=== PATIENT | female | born 1940 | race Caucasian/White ===

== ENCOUNTER → 2016-02-27 | Outpatient (CLI) | payer MEDICARE, BC ==
--- NOTE | 2016-03-02 07:12 | MM ---
Reason for exam: screening (asymptomatic). Last mammogram was performed 1 year ago. History: Patient is postmenopausal. Family history of breast cancer in sister at age 59 and breast cancer in sister at age 73. Benign left mammotome panel of the left breast, October 30, 2004. Took estrogen beginning at age 37. Physical Findings: A clinical breast exam by your physician is recommended on an annual basis and results should be correlated with mammographic findings. MG 3D Screening Mammo W/Cad Bilateral CC and MLO view(s) were taken. Prior study comparison: February 25, 2015, bilateral MG 3d diag mammo w/cad HARISH. August 23, 2014, right breast MG diagnostic mammo RT w CAD. February 22, 2014, right breast MG work up mamm w CAD RT. February 10, 2013, bilateral digital screening mammo w/CAD. The breast tissue is heterogeneously dense. This may lower the sensitivity of mammography. Previous mammotome biopsy in the left breast. No significant changes when compared with prior studies. ASSESSMENT: Negative, BI-RAD 1 RECOMMENDATION: Routine screening mammogram of both breasts in 1 year.
== END | disposition home or self-care (01) ==
LOC: RADMAMWWP 13:33
PROVIDERS: ATTEND Family Medicine
DX: Z12.31 Encounter for screening mammogram for malignant neoplasm of breast (principal)
CPT/HCPCS: 77063; G0202

== ENCOUNTER → 2016-04-06 | Outpatient (CLI) | payer MEDICARE, BC ==
[~2016-04-06] MED LIST: DENOSUMAB 60 MG/ML 1 ML SYRINGE SQ ONE
[2016-04-06 10:49] VITALS: BP 146/70; PULSE 65; RESP 16; TEMP 98.2
== END | disposition home or self-care (01) ==
LOC: PROCWHC3 10:20
PROVIDERS: ATTEND Family Medicine
DX: M81.0 Age-related osteoporosis without current pathological fracture (principal); N18.3 Chronic kidney disease, stage 3 (moderate)
CPT/HCPCS: 96372; J0897

== ENCOUNTER → 2016-04-25 | Outpatient (CLI) | payer MEDICARE, BC ==
[2016-04-25 09:43] LABS: Basophils # (A) 0.1 k/uL (0-0.2); Basophils % (A) 1 %; CH 29.5; CHCM 32.8; Eosinophils # (A) 0.1 k/uL (0-0.7); Eosinophils % (A) 3 %; HCT 38.5 % (34.0-46.0); HDW 2.84; HGB 12.6 gm/dL (11.4-16.0); Luc % (Auto) 4; Lymphocytes # (A) 1.5 k/uL (1.0-4.8); Lymphocytes % (A) 27 %; MCH 29.5 pg (25.0-35.0); MCHC 32.7 g/dL (31.0-37.0); MCV 90.3 fL (80.0-100.0); Mean Platelet Volume 7.4; Monocytes # (A) 0.3 k/uL (0-1.0); Monocytes % (A) 6 %; Neutrophils # (A) 3.3 k/uL (1.3-7.7); Neutrophils % (A) 60 %; RBC 4.26 m/uL (3.80-5.40); RDW 13.1 % (11.5-15.5); WBC 5.5 k/uL (3.8-10.6)
[2016-04-25 09:45] LABS: Appearance,Urine Clear (Clear); Bacteria,Urine Rare /hpf; Bilirubin,Urine Negative (Negative); Glucose,Urine (UA) Negative (Negative); Ketones,Urine Negative (Negative); Leukocyte Esterase,Urine Small (Negative); Nitrite,Urine Negative (Negative); Particle Count 1410; Protein,Urine Negative (Negative); RBC,Urine <1 /hpf (0-5); Specific Gravity,Urine 1.009 (1.001-1.035); Squamous Epithelial Cell,Urine <1 /hpf (0-4); UA Billing (MACRO vs. MICRO) MICRO; Urobilinogen,Urine <2.0 mg/dL (<2.0); WBC,Urine 8 /hpf (0-5)
[2016-04-25 10:24] LABS: Anion Gap 12 mmol/L; Blood Urea Nitrogen 14 mg/dL (7-17); Calcium 9.3 mg/dL (8.4-10.2); Carbon Dioxide 28 mmol/L (22-30); Chloride 101 mmol/L (98-107); Glucose 134 mg/dL (74-99); Iron 73 ug/dL (37-170); Magnesium 1.8 mg/dL (1.6-2.3); Non-African American GFR(MDRD) >60 (>60 ml/min/1.73 sqM); Phosphorous 4.3 mg/dL (2.5-4.5); Sodium 141 mmol/L (137-145); Uric Acid 6.3 mg/dL (3.7-7.4)
[2016-04-25 10:33] LABS: % Iron Saturation 22.5 % (20-50); Total Iron Binding Capacity 325 ug/dL (265-497)
== END ==
LOC: LABWHC1 09:18
PROVIDERS: ATTEND Nurse Practitioner Family
DX: N18.3 Chronic kidney disease, stage 3 (moderate) (principal); E87.5 Hyperkalemia; D64.9 Anemia, unspecified; E83.39 Other disorders of phosphorus metabolism; M10.9 Gout, unspecified; N39.0 Urinary tract infection, site not specified; E55.9 Vitamin D deficiency, unspecified
CPT/HCPCS: 36415; 80048; 81001; 82306; 82728; 83540; 83550; 83735; 83970; 84100; 84550; 85025

== ENCOUNTER → 2017-04-02 | Outpatient (CLI) | payer MEDICARE, BC ==
--- NOTE | 2017-04-06 09:59 | MM ---
Reason for exam: screening (asymptomatic). Last mammogram was performed 1 year and 1 month ago. History: Patient is postmenopausal. Family history of breast cancer in sister at age 59 and breast cancer in sister at age 73. Benign left mammotome panel of the left breast, October 30, 2004. Took estrogen beginning at age 37. Physical Findings: A clinical breast exam by your physician is recommended on an annual basis and results should be correlated with mammographic findings. MG 3D Screening Mammo W/Cad Bilateral CC and MLO view(s) were taken. Prior study comparison: February 27, 2016, bilateral MG 3d screening mammo w/cad. February 25, 2015, bilateral MG 3d diag mammo w/cad HARISH. February 16, 2014, bilateral MG screening mammo w CAD. The breast tissue is heterogeneously dense. This may lower the sensitivity of mammography. Previous mammotome biopsy in the left breast. No significant changes when compared with prior studies. ASSESSMENT: Negative, BI-RAD 1 RECOMMENDATION: Routine screening mammogram of both breasts in 1 year.
== END | disposition home or self-care (01) ==
LOC: RADMAMWWP 11:05
PROVIDERS: ATTEND Family Medicine
DX: Z12.31 Encounter for screening mammogram for malignant neoplasm of breast (principal)
CPT/HCPCS: 77063; 77067

== ENCOUNTER → 2018-04-20 | Outpatient (CLI) | payer MEDICARE, BC ==
--- NOTE | 2018-04-22 09:34 | MM ---
Reason for exam: screening (asymptomatic). Last mammogram was performed 1 year and 1 month ago. History: Patient is postmenopausal. Family history of breast cancer in sister at age 59 and breast cancer in sister at age 73. Benign left mammotome panel of the left breast, October 30, 2004. Took estrogen beginning at age 37. Physical Findings: A clinical breast exam by your physician is recommended on an annual basis and results should be correlated with mammographic findings. MG 3D Screening Mammo W/Cad Bilateral CC and MLO view(s) were taken. Prior study comparison: April 02, 2017, bilateral MG 3d screening mammo w/cad. February 27, 2016, bilateral MG 3d screening mammo w/cad. The breast tissue is heterogeneously dense. This may lower the sensitivity of mammography. Benign appearing bilateral calcifications. No suspicious abnormality. No significant changes when compared with prior studies. ASSESSMENT: Benign, BI-RAD 2 RECOMMENDATION: Routine screening mammogram of both breasts in 1 year.
== END | disposition home or self-care (01) ==
LOC: RADMAMWWP 14:23
PROVIDERS: ATTEND Family Medicine
DX: Z12.31 Encounter for screening mammogram for malignant neoplasm of breast (principal)
CPT/HCPCS: 77063; 77067

== ENCOUNTER → 2018-06-30 | Outpatient (CLI) | payer MEDICARE, BC | END | disposition home or self-care (01) | LOC: LABPAT 11:13 | PROVIDERS: ATTEND Orthopaedic Surgery | DX: Z01.812 Encounter for preprocedural laboratory examination (principal) | CPT/HCPCS: 87070 ==

== ENCOUNTER → 2018-08-09 | Outpatient (CLI) | payer MEDICARE, BC ==
[2018-08-09 09:39] LABS: HCT 39.3 % (34.0-46.0); HGB 12.6 gm/dL (11.4-16.0); MCH 28.5 pg (25.0-35.0); MCHC 32.1 g/dL (31.0-37.0); MCV 88.7 fL (80.0-100.0); Mean Platelet Volume 6.8; Platelet Count 256 k/uL (150-450); RBC 4.42 m/uL (3.80-5.40); RDW 13.6 % (11.5-15.5); WBC 6.9 k/uL (3.8-10.6)
[2018-08-09 09:45] LABS: INR 0.9 (<1.2); Partial Thromboplastin Time 24.8 sec (22.0-30.0); Prothrombin Time 10.1 sec (9.0-12.0)
[2018-08-09 09:46] LABS: Albumin 4.2 g/dL (3.5-5.0); Calcium 9.7 mg/dL (8.4-10.2); Potassium 5.6 mmol/L (3.5-5.1); Total Bilirubin 0.6 mg/dL (0.2-1.3); Total Protein 6.9 g/dL (6.3-8.2)
[2018-08-09 14:26] LABS: Appearance,Urine Clear (Clear); Bilirubin,Urine Negative (Negative); Blood,Urine Negative (Negative); Color,Urine Light Yellow; Glucose,Urine (UA) Negative (Negative); Ketones,Urine Negative (Negative); Leukocyte Esterase,Urine Negative (Negative); Nitrite,Urine Negative (Negative); PH, Urine 6.5 (5.0-8.0); Protein,Urine Negative (Negative); Specific Gravity,Urine 1.009 (1.001-1.035); Urobilinogen,Urine <2.0 mg/dL (<2.0)
== END | disposition home or self-care (01) ==
LOC: LABPAT 08:40
PROVIDERS: ATTEND Orthopaedic Surgery
DX: Z01.818 Encounter for other preprocedural examination (principal); Z79.01 Long term (current) use of anticoagulants; Z01.812 Encounter for preprocedural laboratory examination
CPT/HCPCS: 36415; 80053; 81003; 85027; 85610; 85730; 93005

== ENCOUNTER 2018-08-22 07:24 | Inpatient (IN) | payer MEDICARE, BC ==
[2018-08-11 12:35] VITALS: BMI 32.4
[~2018-08-22 07:24] MED LIST changes: +ACETAMINOPHEN TAB 500 MG TAB PO ONE; -DENOSUMAB 60 MG/ML 1 ML SYRINGE SQ ONE; +MELOXICAM 7.5 MG TAB PO ONE; +ROPIVACAINE 246.25 MG, EPINEPHrine 0.5 MG, KETOROLAC 30 MG, cloNIDine HCL/PF 80 MCG, WA... MISCELLANE ONE; +TRANEXAMIC ACID 1,000 MG in SODIUM CHLORIDE 0.9% 100 ML IVPB ONE; +ceFAZolin IN SWFI 2 GM/20 ML SYRINGE IVP ONE
[2018-08-22] MEDS ORDERED: LIDOCAINE 1% 20 ML VIAL (10MG/ML) FOR IV START INTRADERMA PRN (07:33)
[2018-08-22] MEDS ORDERED: DEXAMETHASONE SOD PHOSPHATE 10 MG/ML 1 ML VIAL IV ONE (07:33)
[2018-08-22] MEDS ORDERED: ONDANSETRON 4 MG/2 ML VIAL IVP ONE (07:33)
[2018-08-22 07:52] LABS: Glucose,Whole Blood 174 mg/dL (75-99)
[2018-08-22] MEDS: LACTATED RINGERS 1,000 ML IV SCH (07:59)
[2018-08-22] MEDS ORDERED: HYDROmorphone 0.5 MG/0.5 ML SYRINGE IVP PRN ×3 (08:52)
[2018-08-22] MEDS ORDERED: HYDROcodone/APAP 5-325MG 1 EACH TAB PO PRN ×2 (08:52)
[2018-08-22] MEDS ORDERED: hydrOXYzine PAMOATE 25 MG CAP PO PRN (08:52)
[2018-08-22] MEDS ORDERED: DIAZEPAM 5 MG TAB PO PRN (08:52)
[2018-08-22] MEDS ORDERED: ONDANSETRON 4 MG/2 ML VIAL IVP PRN (08:52)
[2018-08-22] MEDS ORDERED: NALOXONE 0.4 MG/ML 1 ML VIAL IV PRN (08:52)
[2018-08-22] MEDS ORDERED: MAGNESIUM HYDROXIDE 2,400 MG/10 ML CUP PO PRN (08:52)
[2018-08-22] MEDS ORDERED: PHENYLEPHRINE-0.9% NACL SYG 1 MG/10 ML SYRINGE ONE (09:27)
[2018-08-22] MEDS ORDERED: PROPOFOL 10 MG/ML 20 ML VIAL IV ONE (09:27)
[2018-08-22] MEDS ORDERED: HEPARIN SODIUM,PORCINE 10,000 UNIT/ML 1 ML VIAL ONE (09:27)
[2018-08-22] MEDS ORDERED: fentaNYL (PF) 50 MCG/ML 2 ML AMP ONE (09:27)
[2018-08-22] MEDS ORDERED: SODIUM CHLORIDE 0.9% 100 ML BAG ONE (09:27)
[2018-08-22] MEDS ORDERED: TRANEXAMIC ACID 1,000 MG/10 ML VIAL ONE (09:27)
[2018-08-22] MEDS ORDERED: LACTATED RINGERS 1,000 ML BAG IV ONE (09:27)
[2018-08-22] MEDS ORDERED: MIDAZOLAM 2 MG/2 ML VIAL ONE (09:27)
[2018-08-22] MEDS ORDERED: ceFAZolin 3,000 MG in SODIUM CHLORIDE 0.9% IRRIGATIO 3,000 ML IRRIGATION ONE (10:04)
[2018-08-22] MEDS ORDERED: LACTATED RINGERS 1,000 ML IV ONE (10:21)
--- NOTE | 2018-08-22 10:55 | P.OP ---
Date of Procedure: 08/22/18 Preoperative Diagnosis: Severe osteoarthritis right hip Postoperative Diagnosis: Severe osteoarthritis right hip Procedure(s) Performed: Right total hip arthroplasty with a direct anterior approach Implants: Rodriguez and nephew Polarstem size 2 standard Rodriguez [employer] Nephew R3, 3 hole acetabular shell, 52 mm [employer] Nephew reflection 6.5 mm cancellus screw, 20 mm 2 Rodriguez [employer]hew R3, XLPE 20 acetabular liner Rodriguez [employer] Nephew Oxinium femoral head 36 m, +0 All components were press-fit. The articulation is Oxinium on polyethylene. Anesthesia: spinal Surgeon: Angel Quigley Network Control Operator #1: Ketty Méndez Estimated Blood Loss (ml): 250 (105 mL returned with Cell Saver) Pathology: other (Femoral head) Condition: stable Disposition: PACU Indications for Procedure: After failure of conservative treatment we discussed the surgical and nonsurgical treatment options at length. Patient wishes to proceed with a total hip arthroplasty with a direct anterior approach. Complications specific to this procedure were discussed at length, including but not limited to infection, leg length discrepancy, dislocation, and nerve injury. Patient is aware of all these complications and informed consent was obtained Operative Findings: The operative findings are consistent with severe osteoarthritis of the right hip Description of Procedure: Patient was seen and evaluated in the preoperative area, consent was reviewed, and the surgical site was marked with a skin marker. Patient was then brought to the operating room and given prophylactic antibiotics intravenously. 1 g of Tranexamic acid was also given. A spinal anesthetic was administered by the anesthesia department. The patient was then placed on the Bowbells table with the bony prominences well-padded. The hip area was then prepped and draped in usual sterile fashion. A universal timeout was then performed, which confirmed the patient's name, surgical site, ALLERGIES, and procedure being performed. Next the incision site was located at 1 cm distal and 1 cm lateral to the anterior superior iliac spine. The skin and subcutaneous tissues were sharply incised. Incision was carefully dissected down to the fascia overlying the tensor fascia nadiya muscle. This fascia was then incised in line with the incision. Next, using blunt finger dissection, the tensor fascia nadiya muscle was dissected off its investing fascia. The muscle was then carefully retracted laterally with a cobra retractor over the lateral neck of the femur. Next, the circumflex vessels were identified and cauterized using the AquaMantis device. The anterior hip capsule was then exposed. The capsule was then opened and an inverted T fashion. Cobra retractors were then placed intracapsularly. The proximal femur was then visualized. The femoral neck was then osteotomized appropriate level above the lesser trochanter. Small amount of traction was placed with the Bowbells table. A small wedge of bone was then removed from the remaining femoral head. Next, using a corkscrew femoral head was easily removed from the acetabulum. On gross visual inspection, the femoral head had complete loss of articular cartilage in m ultiple periarticular osteophytes. Attention was then turned to the acetabulum. the acetabulum was exposed and any remaining labrum was excised. Sequential reaming of the acetabulum was performed using fluoroscopic guidance. When the appropriate size was reached, a trial was then placed. The position and fit of the trial was checked with fluoroscopy. The trial was then removed. Then, using fluoroscopic guidance, the final implant was impacted at 20 of anteversion and 40 of abduction, and fully seated in the acetabulum. 2 screws were then placed in the acetabulum. Again fluoroscopy was used to check position of the screws. Next, the liner was then impacted, with a 20 elevated liner located in the anterior superior quadrant. Component locking was confirmed. Attention was then directed to the femur. With the aid of the Bowbells table, the femur was externally rotated to approximately 130, extended, and abducted under the opposite leg. A side hook was then placed under the proximal femur, and the side hook elevator was used to elevate the proximal femur. Retractors were then placed. A capsular release was performed, as well as a release of the conjoined tendon, which afforded excellent visualization of the proximal femur. Next, a box osteotome was used to lateralize the proximal femur. A hat block bench hand was then used to locate the femoral canal. Sequential broaching was then performed with appropriate size which afforded excellent fixation in the proximal femur. A trial was then placed with appropriate head and neck, and the hip was gently reduced with the aid of the Bowbells table. Fluoroscopy was then used to check position of the components, as well as to ensure equal leg lengths. The hip was then gently dislocated and the trials were then removed. Final implants were then impacted and the hip was again reduced. Final fluoroscopic x-rays confirmed that the components were in anatomic position, as well as equal leg lengths. The hip was also taken through range of motion, and found to be stable. The hip was then copiously irrigated with antibiotic solution with pulsatile lavage. The hip was then irrigated with Irrisept solution. The soft tissues were then injected with a ropivacaine solution, which consisted of 246.25 mg of ropivacaine, 0.5 mg of epinephrine, 30 mg of Toradol, 80 g of clonidine, and 48.45 mL of sterile water, for a total of 100 mL of fluid injected. A second dose of 1 g of Tranexamic acid was also given. the fascia was then closed with 2-0 strata fix suture. The subcutaneous tissue was closed with 3-0 Vicryl. The subcuticular tissue was closed with 3-0 strata fix suture. The skin was then closed with Dermabond glue and a sterile silver dressing. The patient was then transferred to the recovery room in stable c ondition. The assistant accounting manager ALESIA Reynolds was required due to the complexity of surgery, and the need for skilled surgical supervisor for positioning, draping, exposure, retraction, and closure of the wound.
--- NOTE | 2018-08-22 11:48 | XR ---
EXAMINATION TYPE: XR Hip Limited RT DATE OF EXAM: 08/22/2018 COMPARISON: NONE HISTORY: 78-year-old female status post hip surgery, assess surgical alignment TECHNIQUE: Single AP view FINDINGS: Image shows placement of right hip total arthroplasty. Both acetabular cup and femoral stem component s of the prosthesis appear well seated without periprosthetic fracture. Alignment is grossly anatomic . Scattered soft tissue air related to recent operation. IMPRESSION: Uncomplicated postoperative appearance right total hip arthroplasty.
[2018-08-22] MEDS: HYDROmorphone 1 MG/ML 1 ML SYRINGE IVP ONE ×4 (12:23→16:14)
--- NOTE | 2018-08-22 15:13 | XR ---
EXAMINATION TYPE: XR Hip Limited RT, FL guidance operating room DATE OF EXAM: 08/22/2018 COMPARISON: NONE HISTORY: 78-year-old female anterior right hip replacement FINDINGS: Images show placement of right hip total arthroplasty. A contralateral side left hip total arthroplas ty is already present. FLUOROSCOPY Fluoroscopy time of 28 seconds was used during anterior right hip replacement. 2 image/s document/s the procedure. IMPRESSION: Fluoroscopy as above.
[2018-08-22] MEDS: MELOXICAM 7.5 MG TAB PO SCH (17:07)
[2018-08-22] MEDS: SODIUM CHLORIDE 0.9% 1,000 ML IV SCH (17:16)
[2018-08-22] MEDS: ceFAZolin IN SWFI 2 GM/20 ML SYRINGE IVP SCH (17:29)
[2018-08-22] MEDS ORDERED: SENNOSIDES-DOCUSATE SODIUM 1 EACH TAB PO SCH (21:00)
[2018-08-22] MEDS: PRIMIDONE 50 MG TAB PO SCH (22:13)
[2018-08-22] MEDS: CARBIDOPA-LEVODOPA 25-100 MG 1 EACH TAB PO SCH (22:13)
[2018-08-22] MEDS: ASPIRIN 325 MG TAB PO SCH (22:14)
[2018-08-22] MEDS: GABAPENTIN 400 MG CAP PO SCH (22:14)
--- NOTE | 2018-08-22 23:35 | P.CONS ---
History of Present Illness - Reason for Consult Consult date: 08/22/18 Medical management Requesting physician: Angel Quigley - Chief Complaint Hip pain - History of Present Illness Consultation: This is a very pleasant 78-year-old patient of Dr. Hunter. Chronic stable medical conditions include diabetes, fibromyalgia, GERD, hyperlipidemia, hypertension, hypothyroid, Parkinson's disease, chronic back pain, chronic kidney disease. Patient has a baseline does use a cane and a walker. Patient has undergone a right total hip arthroplasty. Postprocedure stable. Pain is controlled. No nausea vomiting. No chest pain. Did tolerate a light supper. Review of systems: GEN.: Tired EYES: None HEENT: None NECK: None RESPIRATORY: None CARDIOVASCULAR: None GASTROINTESTINAL: None GENITOURINARY: None MUSCULOSKELETAL: Pain in different joints LYMPHATICS: None HEMATOLOGICAL: None PSYCHIATRY: None NEUROLOGICAL: Does use a cane and a walker Social history: Does not smoke or drink alcohol. Lives alone. In assisted living. [facility]. Does use a cane and a walker Family history: Prostate cancer Physical examination: VITAL SIGNS: 97, 54, 17, 96 x 55, 98% room air GENERAL: BMI 32.4 sitting up, comfortable. EYES: Pupils equal. Conjunctiva normal. HEENT: External appearance of nose and ears normal, oral cavity grossly normal. NECK: JVD not raised; masses not palpable. HEART: First and second heart sounds are normal; no edema. LUNGS: Respiratory rate normal; clear to auscultation. ABDOMEN: Soft, nontender, liver spleen not palpable, no masses palpable. PSYCH: Alert and oriented x3; mood and affect normal. NEUROLOGICAL: Cranial nerves grossly intact; no facial asymmetry, power and sensation grossly intact slight tremor. LYMPHATICS: No lymph nodes palpable in the axilla and neck MUSCULOSKELETAL: Dressing over the right hip Investigations: Blood work from 08/09/2018: Hemoglobin 12.6 potassium this morning was 4.6 creatinine 0.94 Assessment: -Right total hip arthroplasty -Diabetes mellitus type 2 -Chronic fibromyalgia -GERD -Hyperlipidemia -Essential hypertension -Primary osteoarthritis -Idiopathic Parkinson's disease -Chronic gait dysfunction uses a cane and a walker at baseline Plan: Home medications are renewed. Care was discussed with the patient. On aspirin 325 twice a day for DT prophylaxis. Thank you Dr. Quigley Past Medical History Past Medical History: Diabetes Mellitus, Fibromyalgia, GERD/Reflux, Hyperlip idemia, Hypertension, Osteoarthritis (OA), Renal Disease, Thyroid Disorder Additional Past Medical History / Comment(s): PARKINSONS, HEART MURMUR, VARICOSE VEINS, BACK PAIN- RECEIVES INJECTIONS FROM DR HALLIE HOFFMAN., DIET CONTROLLED DIABETES, HX OF ANEMIA, LOW FUNCTIONING KIDNEYS (DR COTO)., PAIN BACK AND RIGHT HIP- USING CANE OR WALKER. History of Any Multi-Drug Resistant Organisms: None Reported Past Surgical History: Bladder Surgery, Hysterectomy, Orthopedic Surgery Additional Past Surgical History / Comment(s): BILAT KNEE REPLACEMENTS/BILATERAL HIPS, LT SHOULDER REPLACEMENT/TOTAL RT ELBOW REPLACEMENT/BILAT CATARACT REMOVAL Past Anesthesia/Blood Transfusion Reactions: No Reported Reaction Past Psychological History: No Psychological Hx Reported Smoking Status: Never smoker Past Alcohol Use History: None Reported Past Drug Use History: None Reported - Past Family History Father Family Medical History: Cancer Additional Family Medical History / Comment(s): PROSTATE CANCER Sister(s) Family Medical History: Cancer Additional Family Medical History / Comment(s): SISTERS- BREAST AND LUNG CANCER Medications and Allergies Home Medications Medication Instructions Recorded Confirmed Type Atorvastatin [Lipitor] 10 mg PO DAILY 09/19/13 08/22/18 History Gabapentin 800 mg PO TID 09/19/13 08/22/18 History Levothyroxine Sodium [Synthroid] 25 mcg PO DAILY 09/19/13 08/22/18 History PARoxetine HCL [Paroxetine HCl] 20 mg PO DAILY 09/19/13 08/22/18 History Aspirin 81 mg PO DAILY 03/29/14 08/22/18 History Atenolol [Tenormin] 25 mg PO DAILY 03/29/14 08/22/18 History Carbidopa-Levodopa 25-100 mg 1 tab PO QID 03/29/14 08/22/18 History [Sinemet 25-100 mg] Omeprazole [PriLOSEC] 20 mg PO BID 03/29/14 08/22/18 History Primidone [Mysoline] 50 mg PO QID 03/29/14 08/22/18 History HYDROcodone/APAP 5-325MG [[place] 5] 1 tab PO Q6HR PRN 10/03/14 08/22/18 History Calcitriol [Rocaltrol] 0.25 mcg PO DIRECTED 08/11/18 08/22/18 History Cholecalciferol [Vitamin D3] 650 unit PO DAILY 08/11/18 08/22/18 History Folic Acid 0.4 mg PO DAILY 08/11/18 08/22/18 History Iron 50 mg PO DAILY 08/11/18 08/22/18 History Lisinopril [Zestril] 20 mg PO DAILY 08/11/18 08/22/18 History Multivitamins, Thera [Multivitamin 1 tab PO DAILY 08/11/18 08/22/18 History (formulary)] Allergies Allergy/AdvReac Type Severity Reaction Status Date / Time shellfish derived [Shellfish] Allergy Unknown Rash/Hives Verified 08/22/18 16:42 iodine Allergy Rash/Hives Verified 08/22/18 16:42 Penicillins Allergy Rash/Hives Verified 08/22/18 16:42 Physical Exam Vitals: Vital Signs Temp Pulse Pulse Resp BP BP Pulse Ox 08/22/18 20:57 97.0 F L 54 L 17 96/55 98 08/22/18 16:50 98.1 F 61 15 108/62 95 08/22/18 15:32 81 18 137/62 94 L 08/22/18 14:30 63 18 110/59 93 L 08/22/18 13:31 66 18 121/57 93 L 08/22/18 13:00 64 18 113/56 94 L 08/22/18 12:29 64 18 122/61 93 L 08/22/18 12:00 61 16 139/73 92 L 08/22/18 11:45 59 L 18 130/69 95 08/22/18 11:30 80 18 122/58 92 L 08/22/18 11:14 98 F 67 12 116/60 94 L 08/22/18 07:46 98.3 F 69 16 163/71 98 Intake and Output 08/22/18 08/22/18 08/23/18 14:59 22:59 06:59 Intake Total 1601 490 Output Total 250 Balance 1351 490 Intake: IV 1601 300 Oral 190 Output: Estimated Blood Loss 250 Results CBC & Chem 7: 08/22/18 07:51 Labs: Abnormal Lab Results - Last 24 Hours (Table) 08/22/18 Range/Units 07:48 POC Glucose (mg/dL) 174 H (75-99) mg/dL
[2018-08-23] MEDS: SODIUM CHLORIDE 0.9% 1,000 ML IV SCH (00:43)
[2018-08-23] MEDS: ceFAZolin IN SWFI 2 GM/20 ML SYRINGE IVP SCH (00:59)
[2018-08-23] MEDS ORDERED: LEVOTHYROXINE 25 MCG TAB PO SCH (06:30)
[2018-08-23 07:27] VITALS: BP 107/60; PULSE 71; RESP 16; TEMP 98
[2018-08-23] MEDS ORDERED: PANTOPRAZOLE 40 MG TABLET PO SCH (07:30)
[2018-08-23] MEDS: CARBIDOPA-LEVODOPA 25-100 MG 1 EACH TAB PO SCH ×2 (07:49→11:41)
[2018-08-23] MEDS: MELOXICAM 7.5 MG TAB PO SCH (07:49)
[2018-08-23] MEDS: PRIMIDONE 50 MG TAB PO SCH ×2 (07:50→11:41)
[2018-08-23] MEDS: ASPIRIN 325 MG TAB PO SCH (07:51)
[2018-08-23] MEDS: GABAPENTIN 400 MG CAP PO SCH (07:51)
[2018-08-23] MEDS ORDERED: CHOLECALCIFEROL 400 UNIT TAB PO SCH (09:00)
[2018-08-23] MEDS ORDERED: FERROUS SULFATE 325 MG TAB PO SCH (09:00)
[2018-08-23] MEDS ORDERED: FOLIC ACID 1 MG TAB PO SCH (09:00)
[2018-08-23] MEDS ORDERED: ATENOLOL 25 MG TAB PO SCH (09:00)
[2018-08-23] MEDS ORDERED: LISINOPRIL 20 MG TAB PO SCH (09:00)
[2018-08-23] MEDS ORDERED: ATORVASTATIN 10 MG TAB PO SCH (09:00)
[2018-08-23] MEDS ORDERED: MULTIVITAMINS, THERA 1 EACH TAB PO SCH (09:00)
[2018-08-23] MEDS ORDERED: PARoxetine 20 MG TAB PO SCH (09:00)
--- NOTE | 2018-08-23 09:20 | P.DS ---
Providers Date of admission: 08/22/18 07:24 Expected date of discharge: 08/23/18 Attending physician: Angel Quigley Consults: 08/22/18 08:52 Consult Physician Routine Consulting Provider: Alhaji Ridley Consult Reason/Comments: medical management Do you want consulting provider notified?: Yes Primary care physician: Philip Ronquillo - Discharge Diagnosis(es) (1) Osteoarthritis of right hip Current Visit: Yes Status: Acute (2) Status post total hip replacement, right Current Visit: Yes Status: Acute Hospital Course: This is a 78-year-old female with known history of degenerative arthritis of the right hip. The patient presents for evaluation. After discussion and consideration patient elects to proceed with total hip arthroplasty. The patient is seen preoperatively by Dr. Quigley and medically cleared for surgery by their primary care physician. Patient is admitted to [facility] on 08/22/2018 for total hip arthroplasty. The procedures performed without complication or sequelae. The patient is doing well postoperatively. Labs and vital signs are stable on day of discharge. On day of discharge patient's hip incision is healing well. There is minimal erythema. There is no drainage noted at this time. There is minimal soft tissue swelling to the hip and thigh. Patient has full foot and ankle motion without difficulty or pain. Calf is soft and nontender to palpation. Neurovascular status to the right lower extremity is intact. Patient is discharged home in good condition. Opioid start talking form is reviewed and signed at patient bedside. Please see med rec for accurate list of home medications. Plan - Discharge Summary Discharge Rx Participant: Yes New Discharge Prescriptions: New Aspirin 325 mg PO BID #60 tab HYDROcodone/APAP 5-325MG [[place] 5-325] 1 - 2 tab PO Q6HR PRN #56 tab PRN Reason: Pain Sennosides [Senokot] 1 tab PO BID #60 tablet No Action PARoxetine HCL [Paroxetine HCl] 20 mg PO DAILY Levothyroxine Sodium [Synthroid] 25 mcg PO DAILY Gabapentin 800 mg PO TID Atorvastatin [Lipitor] 10 mg PO DAILY Primidone [Mysoline] 50 mg PO QID Carbidopa-Levodopa 25-100 mg [Sinemet 25-100 mg] 1 tab PO QID Aspirin 81 mg PO DAILY Omeprazole [PriLOSEC] 20 mg PO BID Atenolol [Tenormin] 25 mg PO DAILY HYDROcodone/APAP 5-325MG [[place] 5] 1 tab PO Q6HR PRN PRN Reason: Moderate To Severe Pain Lisinopril [Zestril] 20 mg PO DAILY Multivitamins, Thera [Multivitamin (formulary)] 1 tab PO DAILY Folic Acid 0.4 mg PO DAILY Cholecalciferol [Vitamin D3] 650 unit PO DAILY Iron 50 mg PO DAILY Calcitriol [Rocaltrol] 0.25 mcg PO DIRECTED Discharge Medication List Atorvastatin [Lipitor] 10 mg PO DAILY 09/19/13 [History] Gabapentin 800 mg PO TID 09/19/13 [History] Levothyroxine Sodium [Synthroid] 25 mcg PO DAILY 09/19/13 [History] PARoxetine HCL [Paroxetine HCl] 20 mg PO DAILY 09/19/13 [History] Aspirin 81 mg PO DAILY 03/29/14 [History] Atenolol [Tenormin] 25 mg PO DAILY 03/29/14 [History] Carbidopa-Levodopa 25-100 mg [Sinemet 25-100 mg] 1 tab PO QID 03/29/14 [History] Omeprazole [PriLOSEC] 20 mg PO BID 03/29/14 [History] Primidone [Mysoline] 50 mg PO QID 03/29/14 [History] HYDROcodone/APAP 5-325MG [[place] 5] 1 tab PO Q6HR PRN 10/03/14 [History] Calcitriol [Rocaltrol] 0.25 mcg PO DIRECTED 08/11/18 [History] Cholecalciferol [Vitamin D3] 650 unit PO DAILY 08/11/18 [History] Folic Acid 0.4 mg PO DAILY 08/11/18 [History] Iron 50 mg PO DAILY 08/11/18 [History] Lisinopril [Zestril] 20 mg PO DAILY 08/11/18 [History] Multivitamins, Thera [Multivitamin (formulary)] 1 tab PO DAILY 08/11/18 [History] Aspirin 325 mg PO BID #60 tab 08/23/18 [Rx] HYDROcodone/APAP 5-325MG [[place] 5-325] 1 - 2 tab PO Q6HR PRN #56 tab 08/23/18 [Rx] Sennosides [Senokot] 1 tab PO BID #60 tablet 08/23/18 [Rx] Follow up Appointment(s)/Referral(s): [facility], [NON-STAFF] - Angel Quigley DO [Doctor of Osteopathic Medicine] - 2 Weeks Activity/Diet/Wound Care/Special Instructions: Weightbearing as tolerated with walker. Leave dressing intact. Dressing may be removed by home care nurse or by patient in 10 days. May shower with dressing on. Please follow-up with [facility] in 2 weeks and call with any questions or concerns, . Discharge Disposition: HOME WITH HOME HEALTH SERVICES
[2018-08-23] MEDS: LACTATED RINGERS 1,000 ML IV SCH (09:21)
[2018-08-23 09:49] LABS: Basophils % (A) 0 %; Eosinophils # (A) 0.2 k/uL (0-0.7); Eosinophils % (A) 2 %; HCT 30.1 % (34.0-46.0); Lymphocytes # (A) 1.3 k/uL (1.0-4.8); Lymphocytes % (A) 19 %; MCH 28.6 pg (25.0-35.0); MCV 89.5 fL (80.0-100.0); Mean Platelet Volume 6.6; Monocytes # (A) 0.5 k/uL (0-1.0); Monocytes % (A) 8 %; Neutrophils # (A) 4.9 k/uL (1.3-7.7); Neutrophils % (A) 69 %; Platelet Count 207 k/uL (150-450); RBC 3.36 m/uL (3.80-5.40); RDW 13.7 % (11.5-15.5); WBC 7.1 k/uL (3.8-10.6)
[2018-08-23 09:53] LABS: HGB 9.6 gm/dL (11.4-16.0)
== END 2018-08-23 12:35 | disposition home health service (06) | DRG 470 ==
LOC: 2ORMAIN 07:24 → 4SSUR 16:29
PROVIDERS: ADMIT Orthopaedic Surgery; ATTEND Orthopaedic Surgery
PROC: 0SR906A Replacement of Right Hip Joint with Oxidized Zirconium on Polyethylene Synthetic Substitute, Uncemented, Open Approach (ICD-10-PCS; principal; 2018-08-22 09:15)
DX: M16.11 Unilateral primary osteoarthritis, right hip (principal); E11.22 Type 2 diabetes mellitus with diabetic chronic kidney disease; G20 Parkinson's disease; E03.9 Hypothyroidism, unspecified; E78.5 Hyperlipidemia, unspecified; G89.29 Other chronic pain; I12.9 Hypertensive chronic kidney disease with stage 1 through stage 4 chronic kidney disease, or unspecified chronic kidney disease; K21.9 Gastro-esophageal reflux disease without esophagitis; M79.7 Fibromyalgia; N18.9 Chronic kidney disease, unspecified; I83.90 Asymptomatic varicose veins of unspecified lower extremity; R01.1 Cardiac murmur, unspecified; M54.9 Dorsalgia, unspecified; R26.9 Unspecified abnormalities of gait and mobility; Z79.82 Long term (current) use of aspirin; Z79.890 Hormone replacement therapy; Z79.899 Other long term (current) drug therapy; Z96.612 Presence of left artificial shoulder joint; Z90.710 Acquired absence of both cervix and uterus; Z96.653 Presence of artificial knee joint, bilateral; Z98.42 Cataract extraction status, left eye; Z98.41 Cataract extraction status, right eye; Z96.1 Presence of intraocular lens; Z96.642 Presence of left artificial hip joint; Z96.621 Presence of right artificial elbow joint; Z91.041 Radiographic dye allergy status; Z88.0 Allergy status to penicillin; Z91.013 Allergy to seafood; Z83.3 Family history of diabetes mellitus; Z82.49 Family history of ischemic heart disease and other diseases of the circulatory system; Z80.42 Family history of malignant neoplasm of prostate; Z80.3 Family history of malignant neoplasm of breast; Z80.1 Family history of malignant neoplasm of trachea, bronchus and lung
CPT/HCPCS: 73501; 84132; 85025; 86850; 86891; 86900; 86901; 88300

== ENCOUNTER → 2018-11-17 | Outpatient (CLI) | payer MEDICARE, BC ==
--- NOTE | 2018-11-17 14:18 | BD ---
EXAMINATION TYPE: Axial Bone Density DATE OF EXAM: 11/17/2018 COMPARISON: 09.30.2015 CLINICAL HISTORY: M 81.0 Height: 60 Weight: 167.2 FRAX RISK QUESTIONS: Alcohol (3 or more units per day): no Family History (Parent hip fracture): yes Glucocorticoids (More than 3mos): no (Ex: prednisone, prednisolone, methylprednisolone, dexamethasone, and hydrocortisone). History of Fracture in Adulthood: yes Secondary Osteoporosis: 1. Type 1 Diabetes: no 2. Hyperthyroidism: no 3. Menopause before 45: yes 4. Malnutrition: no 5. Chronic liver disease: no Rheumatoid Arthritis: no Current Tobacco Use: no RISK FACTORS HISTORY OF: Surgery to Spine/Hip(right/left)/Wrist (right/left): bilateral hip surgery When: 1989&2018 Family History of Osteoporosis: yes Active: yes/walks a mile a day Diet low in dairy products/other sources of calcium: no Postmenopausal woman: hysterectomy age 36 Lost more than 2 inches in height since high school: yes MEDICATIONS: Thyroid Medications: synthroid How Lon years Additional History: EXAM MEASUREMENTS: Bone mineral densitometry was performed using the [employer] System. Bone mineral density as measured about the Lumbar spine is: ----- L1-L4(G/cm2): 1.557 T Score Values are as follows: ----- L2: 4.4 ----- L3: 3.6 ----- L4: 2.3 ----- L1-L4: 3.1 Bone mineral density has: increased 3.6 % since study of: 09.30.2015 Bone mineral density about the L Wrist (g/cm2): 0.617 T Score values are as follows: -----Dist. R+U: 2.2 -----Prox. R+U: -1.7 -----Radius total: -1.0 Bone mineral density : baseline IMPRESSION: Osteopenia (T Score between -2.5 and -1). There is slightly increased risk of fracture and the patient may be considered for treatment. Re-Screen 2-5 years. NOTE: T-SCORE=SD OF THE YOUNG ADULT MEAN.
== END | disposition home or self-care (01) ==
LOC: RADBDWWP 13:12
PROVIDERS: ATTEND Internal Medicine Rheumatology
DX: M85.88 Other specified disorders of bone density and structure, other site (principal)
CPT/HCPCS: 77080

== ENCOUNTER → 2019-06-12 | Outpatient (CLI) | payer MEDICARE, BC ==
[2019-06-12 11:40] LABS: Appearance,Urine Clear (Clear); Bilirubin,Urine Negative (Negative); Blood,Urine Negative (Negative); Color,Urine Yellow; Glucose,Urine (UA) Negative (Negative); Ketones,Urine Negative (Negative); Leukocyte Esterase,Urine Negative (Negative); Nitrite,Urine Negative (Negative); PH, Urine 7.5 (5.0-8.0); Protein,Urine Negative (Negative); Urobilinogen,Urine <2.0 mg/dL (<2.0)
[2019-06-12 11:41] LABS: Basophils # (A) 0.1 k/uL (0-0.2); Basophils % (A) 1 %; Eosinophils # (A) 0.2 k/uL (0-0.7); Eosinophils % (A) 3 %; HCT 41.7 % (34.0-46.0); HGB 13.3 gm/dL (11.4-16.0); Lymphocytes # (A) 1.7 k/uL (1.0-4.8); Lymphocytes % (A) 27 %; MCH 29.1 pg (25.0-35.0); MCHC 31.8 g/dL (31.0-37.0); MCV 91.7 fL (80.0-100.0); Mean Platelet Volume 6.8; Monocytes # (A) 0.4 k/uL (0-1.0); Monocytes % (A) 5 %; Neutrophils % (A) 62 %; Platelet Count 233 k/uL (150-450); RBC 4.55 m/uL (3.80-5.40); WBC 6.4 k/uL (3.8-10.6)
[2019-06-12 11:52] LABS: Protein/Creatinine Ratio,Urine 0.196
[2019-06-12 16:01] LABS: % Iron Saturation 24.51 (12.00-45.00); African American GFR (CKD) 70.5 (60.0-200.0); Albumin 4.2 g/dL (3.80-4.90); Anion Gap 12.1 mmol/L (4.00-12.00); BUN/Creat Ratio 12.22 Ratio (12.00-20.00); Calcium 8.6 mg/dL (8.7-10.3); Carbon Dioxide 23.9 mmol/L (21.6-31.8); Magnesium 1.8 mg/dL (1.5-2.4); Non-African American GFR(CKD) 60.8 (60.0-200.0); Phosphorus 3.9 mg/dL (2.4-5.1); Potassium 4.6 mmol/L (3.5-5.5); Uric Acid 6.1 mg/dL (2.9-7.7)
[2019-06-12 16:11] LABS: Ferritin 73.2 ng/mL (10.0-291.0)
== END | disposition home or self-care (01) ==
LOC: LABWHC1 10:48
PROVIDERS: ATTEND Internal Medicine Nephrology
DX: N18.2 Chronic kidney disease, stage 2 (mild) (principal); N25.81 Secondary hyperparathyroidism of renal origin
CPT/HCPCS: 36415; 80048; 81003; 82040; 82306; 82570; 82728; 83540; 83550; 83735; 83970; 84100; 84156; 84550; 85025

== ENCOUNTER → 2019-07-26 | Outpatient (CLI) | payer MEDICARE, BC ==
--- NOTE | 2019-07-26 13:28 | US ---
EXAMINATION TYPE: US kidneys/renal and bladder DATE OF EXAM: 07/26/2019 COMPARISON: 07/22/2015 CLINICAL HISTORY: N18.2 CKD Stage 2. CKD stage II EXAM MEASUREMENTS: Right Kidney: 10.6 x 3.5 x 3.8 cm Left Kidney: 9.0 x 4.3 x 3.6 cm Right Kidney: no evidence of hydronephrosis Left Kidney: cystic area = 4.5 x 4.7 x 4.5cm Bladder: appears wnl Bilateral Jets seen: yes Incidental finding: multiple gallstones noted No hydronephrosis or nephrolithiasis. IMPRESSION: 1. Again noted is a large left simple renal cyst similar in appearance the prior exam. 2. Incidental note made of cholelithiasis. 3. There does appear to be increased echogenicity of the renal cortex which could be seen with chroni c medical renal disease.
== END | disposition home or self-care (01) ==
LOC: RADUSWWP 12:07
PROVIDERS: ATTEND Family Medicine
DX: N28.1 Cyst of kidney, acquired (principal)
CPT/HCPCS: 76770

== ENCOUNTER → 2019-12-07 | Outpatient (CLI) | payer MEDICARE, BC ==
[~2019-12-07] MED LIST changes: -ACETAMINOPHEN TAB 500 MG TAB PO ONE; +DENOSUMAB 60 MG/ML 1 ML SYRINGE SQ ONE; -MELOXICAM 7.5 MG TAB PO ONE; -ROPIVACAINE 246.25 MG, EPINEPHrine 0.5 MG, KETOROLAC 30 MG, cloNIDine HCL/PF 80 MCG, WA... MISCELLANE ONE; -TRANEXAMIC ACID 1,000 MG in SODIUM CHLORIDE 0.9% 100 ML IVPB ONE; -ceFAZolin IN SWFI 2 GM/20 ML SYRINGE IVP ONE
[2019-12-07 10:13] VITALS: BP 169/79; PULSE 100; RESP 16; TEMP 98.3
== END | disposition home or self-care (01) ==
LOC: PROCWHC3 10:04
PROVIDERS: ATTEND Family Medicine
DX: M81.0 Age-related osteoporosis without current pathological fracture (principal)
CPT/HCPCS: 96372; J0897

== ENCOUNTER → 2020-03-25 | Outpatient (CLI) | payer MEDICARE, BC ==
--- NOTE | 2020-03-25 16:27 | US ---
EXAMINATION TYPE: US kidneys/renal and bladder DATE OF EXAM: 03/25/2020 COMPARISON: US 07/26/2019 CLINICAL HISTORY: 79-year-old female N18.2 Chronic Kidney Disease Stage 2. TECHNIQUE: Multiple sonographic images of the kidneys and bladder are obtained. FINDINGS: EXAM MEASUREMENTS: Right Kidney: 10.3 x 3.8 x 4.0 cm Left Kidney: 8.3 x 3.8 x 3.8 cm Right Kidney: Mild fullness of the right renal pelvis Left Kidney: No hydronephrosis. Cyst visualized measuring 4.2 x 4.4 x 4.0 cm Bladder: wnl Bilateral Jets seen: Yes IMPRESSION: 1. On the right, there is mild pelviectasis versus an extrarenal pelvis. No calyceal dilatation to bautista ggest hydronephrosis. 2. A 4.4 cm simple cyst upper pole left kidney versus 4.7 cm on 07/26/2019.
== END | disposition home or self-care (01) ==
LOC: RADUSWWP 14:43
PROVIDERS: ATTEND Internal Medicine
DX: N28.1 Cyst of kidney, acquired (principal); N18.2 Chronic kidney disease, stage 2 (mild)
CPT/HCPCS: 76770

== ENCOUNTER → 2020-06-13 | Outpatient (CLI) | payer MEDICARE, BC ==
[~2020-06-13] MED LIST changes: +DENOSUMAB 60 MG/ML 1 ML SYRINGE SQ NR; -DENOSUMAB 60 MG/ML 1 ML SYRINGE SQ ONE
[2020-06-13 13:35] VITALS: BP 169/92; PULSE 66; RESP 16; TEMP 97.6
== END ==
LOC: PROCWHC3 13:21
PROVIDERS: ATTEND Family Medicine
DX: M81.0 Age-related osteoporosis without current pathological fracture (principal)
CPT/HCPCS: 96372; J0897

== ENCOUNTER 2020-10-11 17:50 | Observation (INO) | payer MEDICARE, BC ==
--- NOTE | 2020-10-11 18:18 | ED ---
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 He states when she tries to weight-bear now she has extreme pain in the lateral aspect the left hip. No other current complaints no modifying factors no fevers chills nausea vomiting sweats no dysuria MD Complaint: fall - Related Data Home Medications Medication Instructions Recorded Confirmed Atorvastatin [Lipitor] 10 mg PO HS 09/19/13 10/11/20 Levothyroxine Sodium [Synthroid] 25 mcg PO DAILY 09/19/13 10/11/20 PARoxetine HCL [Paroxetine HCl] 20 mg PO DAILY 09/19/13 10/11/20 Carbidopa-Levodopa 25-100 mg 1 tab PO QID 03/29/14 10/11/20 [Sinemet 25-100 mg] Omeprazole [PriLOSEC] 20 mg PO BID 03/29/14 10/11/20 Primidone [Mysoline] 50 mg PO BID@0700,1200 03/29/14 10/11/20 atenoloL [Tenormin] 25 mg PO DAILY 03/29/14 10/11/20 Cholecalciferol [Vitamin D3 (10 400 unit PO DAILY 08/11/18 10/11/20 Mcg = 400 Iu)] Folic Acid 0.4 mg PO DAILY 08/11/18 10/11/20 calcitrioL [Rocaltrol] 0.25 mcg PO SOARES 08/11/18 10/11/20 Aspirin EC [Ecotrin Low Dose] 81 mg PO HS 10/11/20 10/11/20 Gabapentin 600 mg PO TID 10/11/20 10/11/20 Primidone [Mysoline] 100 mg PO HS 10/11/20 10/11/20 lisinopriL 10 mg PO DAILY 10/11/20 10/11/20 metFORMIN HCL ER [Glucophage XR] 1,000 mg PO HS 10/11/20 10/11/20 metFORMIN HCL ER [Glucophage XR] 500 mg PO DAILY 10/11/20 10/11/20 Allergies Allergy/AdvReac Type Severity Reaction Status Date / Time shellfish derived [Shellfish] Allergy Unknown Rash/Hives Verified 10/11/20 18:51 iodine Allergy Rash/Hives Verified 10/11/20 18:51 Penicillins Allergy Rash/Hives Verified 10/11/20 18:51 Review of Systems ROS Statement: Those systems with pertinent positive or pertinent negative responses have been documented in the HPI. ROS Other: All systems not noted in ROS Statement are negative. Past Medical History Past Medical History: Diabetes Mellitus, Fibromyalgia, GERD/Reflux, Hyperlipidemia, Hypertension, Osteoarthritis (OA), Thyroid Disorder Additional Past Medical History / Comment(s): PARKINSONS, HEART MURMUR, VARICOSE VEINS, BACK PAIN- RECEIVES INJECTIONS FROM DR HALLIE HOFFMAN., DIET CONTROLLED DIABETES, HX OF ANEMIA, LOW FUNCTIONING KIDNEYS (DR COTO)., PAIN BACK AND RIGHT HIP- USING CANE OR WALKER. History of Any Multi-Drug Resistant Organisms: None Reported Past Surgical History: Bladder Surgery, Hysterectomy, Orthopedic Surgery Additional Past Surgical History / Comment(s): BILAT KNEE REPLACEMENTS/BILATERAL HIPS, LT SHOULDER REPLACEMENT/TOTAL RT ELBOW REPLACEMENT/BILAT CATARACT REMOVAL Past Anesthesia/Blood Transfusion Reactions: No Reported Reaction Past Psychological History: Depression Smoking Status: Never smoker - Past Family History Father Family Medical History: Cancer Additional Family Medical History / Comment(s): PROSTATE CANCER Sister(s) Family Medical History: Cancer Additional Family Medical History / Comment(s): SISTERS- BREAST AND LUNG CANCER General Exam - General Exam Comments Initial Comments: This is a well-developed well-nourished awake alert oriented 3 female Limitations: no limitations General appearance: alert, anxious Head exam: Present: atraumatic, normocephalic, normal inspection Eye exam: Present: normal appearance, PERRL, EOMI Neck exam: Present: normal inspection, full ROM Cardiovascular Exam: Present: normal rhythm GI/Abdominal exam: Present: soft. Absent: distended, bruit, pulsatile mass Rectal exam: Present: deferred Extremities exam: Present: tenderness, normal capillary refill, other (Tenderness palpation of the left lateral hip no obvious step-off or crepitation. Hematoma seen over the same area lateral left hip over the greater trochanter.) Back exam: Present: normal inspection, full ROM. Absent: tenderness Neurological exam: Present: alert, oriented X3, CN II-XII intact Psychiatric exam: Present: normal affect, normal mood Skin exam: Present: warm, dry, intact, normal color. Absent: rash Course Vital Signs 10/11/20 10/11/20 17:52 18:56 Temperature 99.1 F Pulse Rate 88 Respiratory 19 18 Rate Blood Pressure 163/74 O2 Sat by Pulse 97 Oximetry Medical Decision Making - Medical Decision Making Patient still has intractable pain and is unable weight-bear. She will be admitted for pain control I did discuss the case with Denisha who is covering for sheet also the patient was scheduled to see Dr. Osborne he will be consulted. - Radiology Data Radiology results: report reviewed (Imaging reviewed no acute findings. Please see the complete report), image reviewed Disposition Clinical Impression: Acute pain of left hip, Hip hematoma, left Disposition: ADMITTED IP TO THIS HOSP Condition: Fair Referrals: Philip Ronquillo DO [Primary Care Provider] - 1-2 days
--- NOTE | 2020-10-11 18:46 | XR ---
EXAMINATION TYPE: XR Hip LT and AP Pelvis DATE OF EXAM: 10/11/2020 COMPARISON: 01/11/2013 HISTORY: Pain TECHNIQUE: 3 views FINDINGS: Pelvic ring is intact. There is bilateral hip prosthesis. Components appear in anatomic pos ition. Proximal left femur is intact. IMPRESSION: Left hip prosthesis without change in appearance compared to old exam. No fracture seen.
[2020-10-11] MEDS ORDERED: ACETAMINOPHEN TAB 325 MG TAB PO STA (19:21)
--- NOTE | 2020-10-11 20:06 | CT ---
EXAMINATION TYPE: CT hip LT wo con DATE OF EXAM: 10/11/2020 COMPARISON: None HISTORY: Left hip pain after fall x2 weeks ago. CT DLP: 688.8 mGycm Automated exposure control for dose reduction was used. Images obtained from the upper ileum to the mid shaft of the femur without contrast. Exam limited by metal artifact from the left hip prosthesis. The left sacroiliac joint is intact. Lef t iliac bone appears intact. I see no fracture line. Pubic symphysis appears intact. The proximal lef t femur is intact. Prosthesis appears in good position. There is no evidence of a soft tissue mass. I see no pathologic fluid collection. There is no free fluid in the pelvis. There is multiple sigmoid diverticula. Bladder distends smoothly. IMPRESSION: Left hip prosthesis appears in good position. No fracture seen. No evidence of a hematoma.
[2020-10-11] MEDS ORDERED: ACETAMINOPHEN TAB 325 MG TAB PO PRN (20:51)
[2020-10-11] MEDS ORDERED: HYDROmorphone 0.5 MG/0.5 ML SYRINGE IVP PRN (20:51)
[2020-10-11] MEDS ORDERED: KETOROLAC 15 MG/ML 1 ML VIAL IVP STA (20:51)
[2020-10-11] MEDS ORDERED: NALOXONE 0.4 MG/ML 1 ML VIAL IV PRN (20:51)
[2020-10-11] MEDS ORDERED: ATORVASTATIN 10 MG TAB PO SCH (21:00)
[2020-10-11] MEDS ORDERED: SODIUM CHLORIDE 0.9% 1,000 ML IV SCH (21:00)
[2020-10-11] MEDS ORDERED: ASPIRIN 81 MG PO SCH (21:00)
[2020-10-11] MEDS ORDERED: metFORMIN 500 MG TAB PO SCH (21:00)
[2020-10-11] MEDS ORDERED: PRIMIDONE 50 MG TAB PO SCH (21:00)
[2020-10-11 22:33] LABS: Glucose,Whole Blood 102 mg/dL (75-99)
[2020-10-11] MEDS: PANTOPRAZOLE 40 MG TABLET PO SCH (22:36)
[2020-10-11] MEDS: GABAPENTIN 300 MG CAP PO SCH (22:36)
[2020-10-11] MEDS: CARBIDOPA-LEVODOPA 25-100 MG 1 EACH TAB PO SCH (22:51)
[2020-10-12] MEDS ORDERED: LEVOTHYROXINE 25 MCG TAB PO SCH (06:30)
[2020-10-12 07:07] LABS: Glucose,Whole Blood 99 mg/dL (75-99)
[2020-10-12] MEDS ORDERED: metFORMIN 500 MG TAB PO SCH ×3 (07:30→21:00)
[2020-10-12] MEDS: GABAPENTIN 300 MG CAP PO SCH (07:31)
[2020-10-12] MEDS: CARBIDOPA-LEVODOPA 25-100 MG 1 EACH TAB PO SCH ×2 (07:31→12:30)
[2020-10-12] MEDS: PRIMIDONE 50 MG TAB PO SCH ×2 (07:32→12:30)
[2020-10-12] MEDS: PANTOPRAZOLE 40 MG TABLET PO SCH (07:32)
[2020-10-12] MEDS: INSULIN ASPART (NovoLOG) 100 UNIT/ML VIAL SQ SCH ×2 (07:33→12:31)
[2020-10-12] MEDS ORDERED: PARoxetine 20 MG TAB PO SCH (09:00)
[2020-10-12] MEDS ORDERED: FOLIC ACID 1 MG TAB PO SCH (09:00)
[2020-10-12] MEDS ORDERED: CHOLECALCIFEROL 10 MCG (400 IU) TABLET PO SCH (09:00)
[2020-10-12] MEDS ORDERED: atenoloL 25 MG TAB PO SCH (09:00)
[2020-10-12] MEDS ORDERED: lisinopriL 10 MG TAB PO SCH (09:00)
--- NOTE | 2020-10-12 10:09 | P.CNOR ---
History of Present Illness - [facility] Consult date: 10/12/20 Consult reason: joint pain History of present illness: The patient is a pleasant 80 y/o female with a history of diabetes, hypertension, and hyperlipidemia that presented to the emergency department last night with severe left hip pain. She states she fell at home about 1-2 weeks ago and has a bruise on her hip. The hip was feeling ok until yesterday when she felt a sharp pain in the lateral hip that she describes as a "pinched nerve" type pain. The patient was unable to ambulate due to the pain. She is status post left total hip [place] [address] Maya in [place]. Her right hip replacement was done by Dr. Angel Quigley in 2019. She states the hip pain in much better today and she is only experiencing mild groin pain with weightbearing. The patient has been up to the bathroom twice this morning without much difficulty. Orthopedics was consulted for further evaluation and care. Review of Systems Constitutional: Denies chills, Denies fatigue, Denies fever Cardiovascular: Denies chest pain, Denies shortness of breath Respiratory: Denies cough Gastrointestinal: Denies diarrhea, Denies nausea, Denies vomiting Musculoskeletal: left: hip pain, hip stiffness Past Medical History Past Medical History: Diabetes Mellitus, Fibromyalgia, GERD/Reflux, Hyperlipidemia, Hypertension, Osteoarthritis (OA), Thyroid Disorder Additional Past Medical History / Comment(s): PARKINSONS, HEART MURMUR, VARICOSE VEINS, BACK PAIN- RECEIVES INJECTIONS FROM DR STERLING 2 years ago., DIET CONTROLLED DIABETES, HX OF ANEMIA, LOW FUNCTIONING KIDNEYS (DR COTO)., PAIN BACK- USING CANE OR WALKER. Falls. History of Any Multi-Drug Resistant Organisms: None Reported Past Surgical History: Bladder Surgery, Hysterectomy, Orthopedic Surgery Additional Past Surgical History / Comment(s): BILAT KNEE REPLACEMENTS/BILATERAL HIPS, LT SHOULDER REPLACEMENT/TOTAL RT ELBOW REPLACEMENT/BILAT CATARACT REMOVAL Past Anesthesia/Blood Transfusion Reactions: No Reported Reaction Past Psychological History: Depression Smoking Status: Never smoker Past Alcohol Use History: None Reported Past Drug Use History: None Reported - Past Family History Father Family Medical History: Cancer Additional Family Medical History / Comment(s): PROSTATE CANCER Sister(s) Family Medical History: Cancer Additional Family Medical History / Comment(s): SISTERS- BREAST AND LUNG CANCER Medications and Allergies Home Medications Medication Instructions Recorded Confirmed Type Atorvastatin [Lipitor] 10 mg PO HS 09/19/13 10/11/20 History Levothyroxine Sodium [Synthroid] 25 mcg PO DAILY 09/19/13 10/11/20 History PARoxetine HCL [Paroxetine HCl] 20 mg PO DAILY 09/19/13 10/11/20 History Carbidopa-Levodopa 25-100 mg 1 tab PO QID 03/29/14 10/11/20 History [Sinemet 25-100 mg] Omeprazole [PriLOSEC] 20 mg PO BID 03/29/14 10/11/20 History Primidone [Mysoline] 50 mg PO BID@0700,1200 03/29/14 10/11/20 History atenoloL [Tenormin] 25 mg PO DAILY 03/29/14 10/11/20 History Cholecalciferol [Vitamin D3 (10 400 unit PO DAILY 08/11/18 10/11/20 History Mcg = 400 Iu)] Folic Acid 0.4 mg PO DAILY 08/11/18 10/11/20 History calcitrioL [Rocaltrol] 0.25 mcg PO SOARES 08/11/18 10/11/20 History Aspirin EC [Ecotrin Low Dose] 81 mg PO HS 10/11/20 10/11/20 History Gabapentin 600 mg PO TID 10/11/20 10/11/20 History Primidone [Mysoline] 100 mg PO HS 10/11/20 10/11/20 History lisinopriL 10 mg PO DAILY 10/11/20 10/11/20 History metFORMIN HCL ER [Glucophage XR] 1,000 mg PO HS 10/11/20 10/11/20 History metFORMIN HCL ER [Glucophage XR] 500 mg PO DAILY 10/11/20 10/11/20 History Allergies Allergy/AdvReac Type Severity Reaction Status Date / Time shellfish derived [Shellfish] Allergy Unknown Rash/Hives Verified 10/11/20 18:51 iodine Allergy Rash/Hives Verified 10/11/20 18:51 Penicillins Allergy Rash/Hives Verified 10/11/20 18:51 Physical Examination The patient is an 80 y/o female in no acute distress. She is alert and oriented x3. Head and neck are unremarkable without obvious trauma. Upper extremities are without deformity and able to move them without difficulty. No pain or deformity to the right lower extremity. Exam of the left lower extremity reveals a large bruise to the lateral hip. Minimal pain on palpation to the lateral hip. No pain on logroll or internal/external rotation of the hip joint. No pain to the left knee. No pain on straight leg raise or pain palpation to the lumbar spine. Calves are soft and nontender. Good foot and ankle motion without difficulty. Neurological and circulatory status is intact. Results - Labs Labs: Abnormal Lab Results - Last 24 Hours (Table) 10/11/20 Range/Units 22:32 POC Glucose (mg/dL) 102 H (75-99) mg/dL - Diagnostic results Hip CT: image reviewed (There is a nondisplaced greater trochanter fracture. Prosthesis is in good position. ) Assessment and Plan Plan: The clinical, x-ray, and CT findings were discussed with the patient. The case was discussed with Dr. Osborne. No surgical intervention is planned. Physical therapy has been ordered for evaluation and treatment. She may weight bear as tolerated with a walker to the left lower extremity. Pain control if needed. The patient may leave later today if her hip pain is controlled and she is ambulating without difficulty. She will follow up with Dr. Osborne in 2 weeks.
[2020-10-12 12:23] LABS: Glucose,Whole Blood 151 mg/dL (75-99)
--- NOTE | 2020-10-12 12:32 | P.PN ---
Progress Note - Text Progress Note Date: 10/12/20 I agree with consult note by Mary Grace Montenegro. I saw and evaluated Mrs. Rogel as well and reviewed her imaging. She has a stable Harrison A (GT) fracture with a stable cemented stem. 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 In addition to her total hip findings, she also has degenerative scoliosis seen on the AP pelvis x-ray which may be contributing to her symptoms. She can weight bear as tolerated using a walker on her left leg and is ok to discharge as long as she passe physical therapy. I'd like to see her in 2-weeks in the office to repeat x-rays of her hip. Thank you for the consultation and please call with any questions or concerns. Jam Osborne MD [facility]
[2020-10-12 14:35] VITALS: BP 124/71; PULSE 64; RESP 16; TEMP 98
--- NOTE | 2020-10-12 16:47 | P.HPIM ---
History of Present Illness H&P Date: 10/12/20 Chief Complaint: Left hip pain Patient is a 80-year-old female with a known history of bilateral hip replacement, knee replacement came to ER with complaints of intractable left hip pain. Patient states that about 2-3 weeks ago patient fell on her left hip and since then she has been having difficulty ambulation. Left hip pain increased since yesterday no. She felt sharppinching type pain.. She usually walks the walker. Denied any new injury. Is unable to bear weight on her left hip. Presents to ER for evolution. Denied any complaints of fever or chills. No nausea vomiting or abdominal pain or diarrhea. No chest pain or shortness of breath. No recent illnesses otherwise. Hip x-ray showed left hip prosthesis without change in appearance compared to old exam. No fractures seen. Next hip CT showed left hip prosthesis appears in good position. No fracture seen. No evidence of a hematoma. Review of Systems Constitutional: Patient denies any fever or chills . No generalized weakness or weight loss. Abdomen: Patient denied nausea vomiting and diarrhea and abdominal pain. Cardiovascular: Patient denies any chest pain or short of breath no palpitations. Respiratory: patient denied any cough is from production. No shortness of breath Neurologic: Patient denied any numbness or tingling headache. Musculoskeletal: Left hip pain. No joint swelling or deformity.. Skin: Negative Psychiatric: Negative Endocrine: No heat or cold intolerance. No recent weight gain. Genitourinary: No dysuria or hematuria. All other 14 point ROS negative except the above Past Medical History Past Medical History: Diabetes Mellitus, Fibromyalgia, GERD/Reflux, Hyperlipidemia, Hypertension, Osteoarthritis (OA), Thyroid Disorder Additional Past Medical History / Comment(s): PARKINSONS, HEART MURMUR, VARICOSE VEINS, BACK PAIN- RECEIVES INJECTIONS FROM DR STERLING 2 years ago., DIET CONTROLLED DIABETES, HX OF ANEMIA, LOW FUNCTIONING KIDNEYS (DR COTO)., PAIN BACK- USING CANE OR WALKER. Falls. History of Any Multi-Drug Resistant Organisms: None Reported Past Surgical History: Bladder Surgery, Hysterectomy, Orthopedic Surgery Additional Past Surgical History / Comment(s): BILAT KNEE REPLACEMENTS/BILATERAL HIPS, LT SHOULDER REPLACEMENT/TOTAL RT ELBOW REPLACEMENT/BILAT CATARACT REMOVAL Past Anesthesia/Blood Transfusion Reactions: No Reported Reaction Past Psychological History: Depression Smoking Status: Never smoker Past Alcohol Use History: None Reported Past Drug Use History: None Reported - Past Family History Father Family Medical History: Cancer Additional Family Medical History / Comment(s): PROSTATE CANCER Sister(s) Family Medical History: Cancer Additional Family Medical History / Comment(s): SISTERS- BREAST AND LUNG CANCER Medications and Allergies Home Medications Medication Instructions Recorded Confirmed Type Atorvastatin [Lipitor] 10 mg PO HS 09/19/13 10/11/20 History Levothyroxine Sodium [Synthroid] 25 mcg PO DAILY 09/19/13 10/11/20 History PARoxetine HCL [Paroxetine HCl] 20 mg PO DAILY 09/19/13 10/11/20 History Carbidopa-Levodopa 25-100 mg 1 tab PO QID 03/29/14 10/11/20 History [Sinemet 25-100 mg] Omeprazole [PriLOSEC] 20 mg PO BID 03/29/14 10/11/20 History Primidone [Mysoline] 50 mg PO BID@0700,1200 03/29/14 10/11/20 History atenoloL [Tenormin] 25 mg PO DAILY 03/29/14 10/11/20 History Cholecalciferol [Vitamin D3 (10 400 unit PO DAILY 08/11/18 10/11/20 History Mcg = 400 Iu)] Folic Acid 0.4 mg PO DAILY 08/11/18 10/11/20 History calcitrioL [Rocaltrol] 0.25 mcg PO SOARES 08/11/18 10/11/20 History Aspirin EC [Ecotrin Low Dose] 81 mg PO HS 10/11/20 10/11/20 History Gabapentin 600 mg PO TID 10/11/20 10/11/20 History Primidone [Mysoline] 100 mg PO HS 10/11/20 10/11/20 History lisinopriL 10 mg PO DAILY 10/11/20 10/11/20 History metFORMIN HCL ER [Glucophage XR] 1,000 mg PO HS 10/11/20 10/11/20 History metFORMIN HCL ER [Glucophage XR] 500 mg PO DAILY 10/11/20 10/11/20 History Allergies Allergy/AdvReac Type Severity Reaction Status Date / Time shellfish derived [Shellfish] Allergy Unknown Rash/Hives Verified 10/11/20 18:51 iodine Allergy Rash/Hives Verified 10/11/20 18:51 Penicillins Allergy Rash/Hives Verified 10/11/20 18:51 Physical Exam Vitals: Vital Signs Temp Pulse Pulse Resp BP BP Pulse Ox 10/12/20 07:00 97.8 F 96 18 146/81 96 10/12/20 01:37 97.7 F 61 17 133/75 98 10/11/20 21:45 98.1 F 68 18 164/82 98 10/11/20 21:02 98.2 F 66 18 164/68 98 10/11/20 18:56 18 10/11/20 17:52 99.1 F 88 19 163/74 97 Intake and Output 10/11/20 10/12/20 10/12/20 22:59 06:59 14:59 Other: Voiding Method Bedpan Bedpan # Voids 1 0 Weight 65.771 kg PHYSICAL EXAMINATION: Patient is lying in the bed comfortably, no acute distress, awake alert and oriented.. HEENT: Normocephalic. Neck is supple. Pupils reactive. Nostrils clear. Oral cavity is moist. Neck reveals no JVD, carotid bruits, or thyromegaly. CHEST EXAMINATION: Trachea is central. Symmetrical expansion. Lung pelaez clear to auscultation and percussion. CARDIAC: Normal S1, S2 with no gallops. No murmurs ABDOMEN: Soft. Bowel sounds normal. No organomegaly. No abdominal bruits. Extremities: reveal no edema. No clubbing or cyanosis Neurologically awake, alert, oriented x3 with well-coordinated movements. No focal deficits noted Skin: No rash or skin lesions. Psychiatric: Coperative. Nonsuicidal Musculoskeletal: No joint swelling or deformity. Normal range of motion. Results Labs: Abnormal Lab Results - Last 24 Hours (Table) 10/11/20 Range/Units 22:32 POC Glucose (mg/dL) 102 H (75-99) mg/dL Thrombosis Risk Factor Assmnt - DVT/VTE Prophylaxis DVT/VTE Prophylaxis: Pharmacologic Prophylaxis ordered - Choose All That Apply Any of the Below Risk Factors Present?: Yes Each Factor Represents 1 point: Obesity (BMI >25) Other Risk Factors: Yes Each Risk Factor Represents 3 Points: Age 75 years or older Other congenital or acquired thrombophilia - If yes, enter type in comment: No Thrombosis Risk Factor Assessment Total Risk Factor Score: 4 Thrombosis Risk Factor Assessment Level: Moderate Risk Assessment and Plan Assessment: Intractable left hip pain status post fall. CT hip is negative for any fractures. Continue with pain management. Orthopedic surgery has seen the patient.. Status post fall 2 weeks ago. Mechanical Hypertension Hyperlipidemia Diabetes type 2 [id number] GERD Fibromyalgia Osteoarthritis Hypothyroidism History of depression History of bilateral knee replacement and hip replacement DVT prophylaxis Plan: Patient will be continued on pain management with Dilaudid. Continue with muscle relaxants. Orthopedic surgery has seen the patient and recommends conservative management at this time. CT hip is negative for any acute fracture dislocation. Continue with home medications and follow closely. PT OT will be consulted.
== END 2020-10-12 16:43 | disposition home or self-care (01) ==
LOC: EC 17:50 → 6NMEDSUR 20:51
PROVIDERS: ADMIT Internal Medicine; ATTEND Internal Medicine
DX: M25.552 Pain in left hip (principal); S70.02XS Contusion of left hip, sequela; W19.XXXS Unspecified fall, sequela; E03.9 Hypothyroidism, unspecified; E11.9 Type 2 diabetes mellitus without complications; E78.5 Hyperlipidemia, unspecified; F32.9 Major depressive disorder, single episode, unspecified; G20 Parkinson's disease; I10 Essential (primary) hypertension; K21.9 Gastro-esophageal reflux disease without esophagitis; M19.90 Unspecified osteoarthritis, unspecified site; M41.80 Other forms of scoliosis, site unspecified; M79.7 Fibromyalgia; Y92.009 Unspecified place in unspecified non-institutional (private) residence as the place of occurrence of the external cause; Z79.84 Long term (current) use of oral hypoglycemic drugs; Z79.890 Hormone replacement therapy; Z79.899 Other long term (current) drug therapy; Z80.1 Family history of malignant neoplasm of trachea, bronchus and lung; Z90.710 Acquired absence of both cervix and uterus; Z96.612 Presence of left artificial shoulder joint; Z96.643 Presence of artificial hip joint, bilateral; Z96.653 Presence of artificial knee joint, bilateral
CPT/HCPCS: 99284; 96374; 73502; 73700; G0378 ×2; J1885

== ENCOUNTER 2020-11-18 14:17 | Inpatient (IN) | payer MEDICARE, BC ==
[2020-11-18 16:59] LABS: Basophils # (A) 0.1 k/uL (0-0.2); Basophils % (A) 1 %; Eosinophils # (A) 0.1 k/uL (0-0.7); Eosinophils % (A) 0 %; HCT 44.9 % (34.0-46.0); HGB 14.8 gm/dL (11.4-16.0); Lymphocytes # (A) 2.3 k/uL (1.0-4.8); Lymphocytes % (A) 17 %; MCH 30.3 pg (25.0-35.0); MCHC 32.9 g/dL (31.0-37.0); MCV 92.2 fL (80.0-100.0); Mean Platelet Volume 6.7; Monocytes # (A) 0.7 k/uL (0-1.0); Monocytes % (A) 5 %; Neutrophils # (A) 10.2 k/uL (1.3-7.7); Neutrophils % (A) 75 %; Platelet Count 359 k/uL (150-450); RBC 4.87 m/uL (3.80-5.40); RDW 12.9 % (11.5-15.5); WBC 13.5 k/uL (3.8-10.6)
[2020-11-18 17:28] LABS: Albumin 4.9 g/dL (3.5-5.0); Calcium 10.2 mg/dL (8.4-10.2); Potassium 4.2 mmol/L (3.5-5.1); Total Bilirubin 0.9 mg/dL (0.2-1.3); Total Protein 7.9 g/dL (6.3-8.2)
[2020-11-18 19:57] LABS: Appearance,Urine Cloudy (Clear); Bacteria,Urine Many /hpf; Bilirubin,Urine 1+ (Negative); Blood,Urine Negative (Negative); Color,Urine Yellow; Glucose,Urine (UA) Negative (Negative); Ketones,Urine 3+ (Negative); Leukocyte Esterase,Urine Large (Negative); Mucus,Urine Rare /hpf; Nitrite,Urine Negative (Negative); PH, Urine 5.5 (5.0-8.0); Protein,Urine 1+ (Negative); RBC,Urine 2 /hpf (0-5); Specific Gravity,Urine 1.015 (1.001-1.035); WBC,Urine >182 /hpf (0-5)
[2020-11-18] MEDS ORDERED: ONDANSETRON 4 MG/2 ML VIAL IVP STA (20:20)
[2020-11-18] MEDS ORDERED: SODIUM CHLORIDE 0.9% 1,000 ML IV STA (20:20)
--- NOTE | 2020-11-18 20:24 | ED ---
General Adult HPI - General Chief complaint: Nausea/Vomiting/Diarrhea Stated complaint: upper abd pain, acid reflux, vomiting Time Seen by Provider: 11/18/20 19:18 Source: patient Mode of arrival: ambulatory - History of Present Illness Initial comments: 80-year-old female with history of type 2 diabetes presents to the emergency department today, accompanied by her daughters, for evaluation of vomiting. Patient states her vomiting began approximately a week ago and now occurs with any intake including water. Reports initially experiencing acid reflux related burning pain with emesis, however states that has mostly resolved at this point. Now has decreased appetite and increased thirst. States she has not been checking her blood sugars because she has been too tired. Reports one episode of loose stool on Wednesday or Wednesday. Complains of marked fatigued and lack of energy. Patient denies fever, chills, headache, chest pain, shortness of breath, hematuria, and dysuria. - Related Data Home Medications Medication Instructions Recorded Confirmed Atorvastatin [Lipitor] 10 mg PO HS 09/19/13 11/18/20 Levothyroxine Sodium [Synthroid] 25 mcg PO DAILY 09/19/13 11/18/20 PARoxetine HCL [Paroxetine HCl] 20 mg PO DAILY 09/19/13 11/18/20 Carbidopa-Levodopa 25-100 mg 1 tab PO QID 03/29/14 11/18/20 [Sinemet 25-100 mg] Omeprazole [PriLOSEC] 20 mg PO BID 03/29/14 11/18/20 Primidone [Mysoline] 50 mg PO BID@0700,1200 03/29/14 11/18/20 atenoloL [Tenormin] 25 mg PO DAILY 03/29/14 11/18/20 Cholecalciferol [Vitamin D3 (10 400 unit PO DAILY 08/11/18 11/18/20 Mcg = 400 Iu)] Folic Acid 0.4 mg PO DAILY 08/11/18 11/18/20 calcitrioL [Rocaltrol] 0.25 mcg PO SOARES 08/11/18 11/18/20 Aspirin EC [Ecotrin Low Dose] 81 mg PO HS 10/11/20 11/18/20 Gabapentin 600 mg PO TID 10/11/20 11/18/20 Primidone [Mysoline] 100 mg PO HS 08/27/21 10/04/21 lisinopriL 10 mg PO DAILY 10/11/20 11/18/20 metFORMIN HCL ER [Glucophage XR] 1,000 mg PO HS 10/11/20 11/18/20 metFORMIN HCL ER [Glucophage XR] 500 mg PO DAILY 10/11/20 11/18/20 Calcium Carbonate [Tums] 1,000 mg PO QID PRN 11/18/20 11/18/20 Allergies Allergy/AdvReac Type Severity Reaction Status Date / Time shellfish derived [Shellfish] Allergy Unknown Rash/Hives Verified 11/18/20 22:31 iodine Allergy Rash/Hives Verified 11/18/20 22:31 Penicillins Allergy Rash/Hives Verified 11/18/20 22:31 Review of Systems ROS Statement: Those systems with pertinent positive or pertinent negative responses have been documented in the HPI. ROS Other: All systems not noted in ROS Statement are negative. Past Medical History Past Medical History: Diabetes Mellitus, Fibromyalgia, GERD/Reflux, Hyperlipidemia, Hypertension, Osteoarthritis (OA), Thyroid Disorder Additional Past Medical History / Comment(s): PARKINSONS, HEART MURMUR, VARICOSE VEINS, BACK PAIN- RECEIVES INJECTIONS FROM DR STERLING 2 years ago., DIET CONTROLLED DIABETES, HX OF ANEMIA, LOW FUNCTIONING KIDNEYS (DR COTO)., PAIN BACK- USING CANE OR WALKER. Falls. History of Any Multi-Drug Resistant Organisms: None Reported Past Surgical History: Bladder Surgery, Hysterectomy, Orthopedic Surgery Additional Past Surgical History / Comment(s): BILAT KNEE REPLACEMENTS/BILATERAL HIPS, LT SHOULDER REPLACEMENT/TOTAL RT ELBOW REPLACEMENT/BILAT CATARACT REMOVAL Past Anesthesia/Blood Transfusion Reactions: No Reported Reaction Past Psychological History: Depression Smoking Status: Never smoker Past Alcohol Use History: None Reported Past Drug Use History: None Reported - Past Family History Father Family Medical History: Cancer Additional Family Medical History / Comment(s): PROSTATE CANCER Sister(s) Family Medical History: Cancer Additional Family Medical History / Comment(s): SISTERS- BREAST AND LUNG CANCER General Exam General appearance: alert, in no apparent distress Respiratory exam: Present: normal lung sounds bilaterally. Absent: respiratory distress, wheezes, rales, rhonchi, stridor Cardiovascular Exam: Present: regular rate, normal rhythm, normal heart sounds. Absent: systolic murmur, diastolic murmur, rubs, gallop, clicks GI/Abdominal exam: Present: soft, tenderness (Right upper quadrant), normal bowel sounds Back exam: Absent: CVA tenderness (R), CVA tenderness (L) Neurological exam: Present: alert, oriented X3, CN II-XII intact Psychiatric exam: Present: normal affect, normal mood Skin exam: Present: warm, dry, intact, normal color. Absent: rash Course Vital Signs 11/18/20 11/18/20 11/18/20 16:38 20:50 23:13 Temperature 99.2 F 98.6 F Pulse Rate 88 77 75 Respiratory 18 18 16 Rate Blood Pressure 124/81 125/73 186/79 O2 Sat by Pulse 98 95 98 Oximetry Medical Decision Making - Medical Decision Making 80-year-old female is evaluated for complaints of abdominal discomfort and nausea and vomiting. Significant physical exam findings include vomiting with movement and right upper quadrant pain upon palpation. Pertinent lab findings include elevated liver enzymes, lipase, WBCs, as well as evidence of a UTI. Patient's pain and nausea were treated, as well as antibiotic for UTI and IV fluids for hydration with improvement of symptoms. Ultrasound of the right upper quadrant was obtained, positive Sanon sign and cholelithiasis. Discussed hospital admission for further evaluation and treatment; patient is agreeable. This case was discussed with my attending, Dr. Coon. - Lab Data Result diagrams: 11/18/20 16:47 11/18/20 16:47 Lab Results 11/18/20 11/18/20 11/18/20 Range/Units 16:47 16:47 19:47 WBC 13.5 H (3.8-10.6) k/uL RBC 4.87 (3.80-5.40) m/uL Hgb 14.8 (11.4-16.0) gm/dL Hct 44.9 (34.0-46.0) % MCV 92.2 (80.0-100.0) fL MCH 30.3 (25.0-35.0) pg MCHC 32.9 (31.0-37.0) g/dL RDW 12.9 (11.5-15.5) % Plt Count 359 (150-450) k/uL MPV 6.7 Neutrophils % 75 % Lymphocytes % 17 % Monocytes % 5 % Eosinophils % 0 % Basophils % 1 % Neutrophils # 10.2 H (1.3-7.7) k/uL Lymphocytes # 2.3 (1.0-4.8) k/uL Monocytes # 0.7 (0-1.0) k/uL Eosinophils # 0.1 (0-0.7) k/uL Basophils # 0.1 (0-0.2) k/uL PT (9.0-12.0) sec INR (<1.2) APTT (22.0-30.0) sec Sodium 137 (137-145) mmol/L Potassium 4.2 (3.5-5.1) mmol/L Chloride 89 L (98-107) mmol/L Carbon Dioxide 24 (22-30) mmol/L Anion Gap 24 mmol/L BUN 17 (7-17) mg/dL Creatinine 0.79 (0.52-1.04) mg/dL Est GFR (CKD-EPI)AfAm 83 (>60 ml/min/1.73 sqM) Est GFR (CKD-EPI)NonAf 72 (>60 ml/min/1.73 sqM) Glucose 140 H (74-99) mg/dL Calcium 10.2 (8.4-10.2) mg/dL Total Bilirubin 0.9 (0.2-1.3) mg/dL AST 47 H (14-36) U/L ALT 117 H (4-34) U/L Alkaline Phosphatase 183 H (38-126) U/L Total Protein 7.9 (6.3-8.2) g/dL Albumin 4.9 (3.5-5.0) g/dL Lipase (23-300) U/L Urine Color Yellow Urine Appearance Cloudy H (Clear) Urine pH 5.5 (5.0-8.0) Ur Specific [place] 1.015 (1.001-1.035) Urine Protein 1+ H (Negative) Urine Glucose (UA) Negative (Negative) Urine Ketones 3+ H (Negative) Urine Blood Negative (Negative) Urine Nitrite Negative (Negative) Urine Bilirubin 1+ H (Negative) Urine Urobilinogen 2.0 (<2.0) mg/dL Ur Leukocyte Esterase Large H (Negative) Urine RBC 2 (0-5) /hpf Urine WBC >182 H (0-5) /hpf Urine Bacteria Many H (None) /hpf Urine Mucus Rare H (None) /hpf 11/18/20 11/18/20 Range/Units 20:45 20:45 WBC (3.8-10.6) k/uL RBC (3.80-5.40) m/uL Hgb (11.4-16.0) gm/dL Hct (34.0-46.0) % MCV (80.0-100.0) fL MCH (25.0-35.0) pg MCHC (31.0-37.0) g/dL RDW (11.5-15.5) % Plt Count (150-450) k/uL MPV Neutrophils % % Lymphocytes % % Monocytes % % Eosinophils % % Basophils % % Neutrophils # (1.3-7.7) k/uL Lymphocytes # (1.0-4.8) k/uL Monocytes # (0-1.0) k/uL Eosinophils # (0-0.7) k/uL Basophils # (0-0.2) k/uL PT 11.2 (9.0-12.0) sec INR 1.1 (<1.2) APTT 24.4 (22.0-30.0) sec Sodium (137-145) mmol/L Potassium (3.5-5.1) mmol/L Chloride (98-107) mmol/L Carbon Dioxide (22-30) mmol/L Anion Gap mmol/L BUN (7-17) mg/dL Creatinine (0.52-1.04) mg/dL Est GFR (CKD-EPI)AfAm (>60 ml/min/1.73 sqM) Est GFR (CKD-EPI)NonAf (>60 ml/min/1.73 sqM) Glucose (74-99) mg/dL Calcium (8.4-10.2) mg/dL Total Bilirubin (0.2-1.3) mg/dL AST (14-36) U/L ALT (4-34) U/L Alkaline Phosphatase (38-126) U/L Total Protein (6.3-8.2) g/dL Albumin (3.5-5.0) g/dL Lipase 311 H (23-300) U/L Urine Color Urine Appearance (Clear) Urine pH (5.0-8.0) Ur Specific [place] (1.001-1.035) Urine Protein (Negative) Urine Glucose (UA) (Negative) Urine Ketones (Negative) Urine Blood (Negative) Urine Nitrite (Negative) Urine Bilirubin (Negative) Urine Urobilinogen (<2.0) mg/dL Ur Leukocyte Esterase (Negative) Urine RBC (0-5) /hpf Urine WBC (0-5) /hpf Urine Bacteria (None) /hpf Urine Mucus (None) /hpf Disposition Clinical Impression: Cholelithiasis, UTI (urinary tract infection), Pancreatitis Disposition: ADMITTED IP TO THIS [facility] Condition: Serious Referrals: Philip Ronquillo DO [Primary Care Provider] - 1-2 days Decision Date: 11/19/20 Decision Time: 02:10
[2020-11-18 21:02] LABS: INR 1.1 (<1.2); Partial Thromboplastin Time 24.4 sec (22.0-30.0); Prothrombin Time 11.2 sec (9.0-12.0)
[2020-11-18] MEDS ORDERED: MAG HYDROX/AL HYDROX/SIMETH 30 ML, HYOSCYAMINE ELIXIR 10 ML, LIDOCAINE VISCOUS 2% 10 ML PO STA ×3 (22:56)
[2020-11-18] MEDS ORDERED: LEVOFLOXACIN 500MG-D5W PMX 500 MG in DEXTROSE/WATER 1 100ML.BAG IVPB STA (23:01)
[2020-11-18] MEDS ORDERED: HYDROmorphone 0.5 MG/0.5 ML SYRINGE IVP STA (23:30)
--- NOTE | 2020-11-18 23:55 | US ---
EXAMINATION TYPE: US abdomen limited DATE OF EXAM: 11/18/2020 COMPARISON: CT 04/16/2011 CLINICAL HISTORY: RUQ pain, n/v. Difficult exam due to overlying bowel gas EXAM MEASUREMENTS: Liver Length: 14.1 cm Gallbladder Wall: 0.2 cm CBD: 0.7 cm Right Kidney: 9.3 x 4.0 x 4.4 cm Pancreas: Obscured by bowel gas Liver: Limited visualization due to overlying bowel gas. Visualized portions appear wnl Gallbladder: Stones visualized Evidence for sonographic Sanon's sign: Yes CBD: wnl as visualized Right Kidney: No hydronephrosis or masses seen Fluid filled bowel vs other etiology visualized midline at beginning of exam IMPRESSION: Normal right kidney. There appears to be some gallstones. Exam was difficult. No dilated ducts.
[2020-11-19] MEDS ORDERED: NALOXONE 0.4 MG/ML 1 ML VIAL IV PRN (01:57)
[2020-11-19] MEDS ORDERED: HYDROmorphone 0.5 MG/0.5 ML SYRINGE IVP PRN (01:57)
[2020-11-19] MEDS ORDERED: SODIUM CHLORIDE 0.9% 1,000 ML IV SCH (02:00)
--- NOTE | 2020-11-19 08:22 | P.HPIM ---
History of Present Illness This is a pleasant 80 years old female with past medical history of Diabetes Mellitus, Fibromyalgia, GERD/Reflux, Hyperlipidemia, Hypertension, Osteoarthritis (OA), hypothyroidism , PARKINSONS, HEART MURMUR, VARICOSE VEINS, BACK PAIN- RECEIVES INJECTIONS FROM DR STERLING 2 years ago., DIET CONTROLLED DIABETES, HX OF ANEMIA, LOW FUNCTIONING KIDNEYS (DR COTO)., PAIN BACK- USING CANE OR WALKER. Falls. She is a patient of Dr. Ronquillo. She follows up also with Dr. Fitzpatrick and neurologist for her Parkinson disease and orthopedic for her arthritis Because of epigastric abdominal pain for the last 7-10 days, increased by eating and drinking that patient could not have food or medication over the last 2-3 days. Usually her pain is 0/10 while she is lying down but it comes up and increased when she tries to sit up. Last 2-3 days she started having vomiting. Also 3 days ago she had loose diarrhea dark-colored but that was stopped over the last 2 days. Patient was not eating and drinking well She denies chest pain or dyspnea. She denies dysuria or change in frequency or urgency with her urination but just suprapubic tenderness No smoking, no alcohol or illicit drugs per patient Vitas looks stable Showing mild leukocytosis of 13.5 K, C and INR, BMP are unremarkable. Creatinine normal 0.7. Liver enzymes slightly elevated with AST 47 and ALT 117. Total bilirubin is normal 0.9. Lipase is slightly elevated at 311. Urine analysis is suspicious for infection. Matos virus nondetected. Abdominal ultrasound showing normal right kidney. There appeared to be some gallstones. No dilated ducts In the emergency room she was receiving ceftriaxone, Levaquin, normal saline at 1 30 mL/h Review of Systems CONSTITUTIONAL: No fever, no malaise, no fatigue. HEENT: No recent visual problems or hearing problems. Denied any sore throat. CARDIOVASCULAR: No orthopnea, PND, no palpitations, no syncope. PULMONARY: No shortness of breath, no cough, no hemoptysis. -GASTROINTESTINAL: As above NEUROLOGICAL: No headaches, no weakness, no numbness. HEMATOLOGICAL: Denies any bleeding or petechiae. GENITOURINARY: Denies any burning micturition, frequency, or urgency. MUSCULOSKELETAL/RHEUMATOLOGICAL: Denies any joint pain, swelling, or any muscle pain. ENDOCRINE: Denies any polyuria or polydipsia. Past Medical History Past Medical History: Diabetes Mellitus, Fibromyalgia, GERD/Reflux, Hyperlipidemia, Hypertension, Osteoarthritis (OA), Thyroid Disorder Additional Past Medical History / Comment(s): PARKINSONS, HEART MURMUR, VARICOSE VEINS, BACK PAIN- RECEIVES INJECTIONS FROM DR STERLING 2 years ago., DIET CONTROLLED DIABETES, HX OF ANEMIA, LOW FUNCTIONING KIDNEYS (DR COTO)., PAIN BACK- USING CANE OR WALKER. Falls. History of Any Multi-Drug Resistant Organisms: None Reported Past Surgical History: Bladder Surgery, Hysterectomy, Orthopedic Surgery Additional Past Surgical History / Comment(s): BILAT KNEE REPLACEMENTS/BILATERAL HIPS, LT SHOULDER REPLACEMENT/TOTAL RT ELBOW REPLACEMENT/BILAT CATARACT REMOVAL Past Anesthesia/Blood Transfusion Reactions: No Reported Reaction Past Psychological History: Depression Smoking Status: Never smoker Past Alcohol Use History: None Reported Past Drug Use History: None Reported - Past Family History Father Family Medical History: Cancer Additional Family Medical History / Comment(s): PROSTATE CANCER Sister(s) Family Medical History: Cancer Additional Family Medical History / Comment(s): SISTERS- BREAST AND LUNG CANCER Medications and Allergies Home Medications Medication Instructions Recorded Confirmed Type Atorvastatin [Lipitor] 10 mg PO HS 09/19/13 11/18/20 History Levothyroxine Sodium [Synthroid] 25 mcg PO DAILY 09/19/13 11/18/20 History PARoxetine HCL [Paroxetine HCl] 20 mg PO DAILY 09/19/13 11/18/20 History Carbidopa-Levodopa 25-100 mg 1 tab PO QID 03/29/14 11/18/20 History [Sinemet 25-100 mg] Omeprazole [PriLOSEC] 20 mg PO BID 03/29/14 11/18/20 History Primidone [Mysoline] 50 mg PO BID@0700,1200 03/29/14 11/18/20 History atenoloL [Tenormin] 25 mg PO DAILY 03/29/14 11/18/20 History Cholecalciferol [Vitamin D3 (10 400 unit PO DAILY 08/11/18 11/18/20 History Mcg = 400 Iu)] Folic Acid 0.4 mg PO DAILY 08/11/18 11/18/20 History calcitrioL [Rocaltrol] 0.25 mcg PO SOARES 08/11/18 11/18/20 History Aspirin EC [Ecotrin Low Dose] 81 mg PO HS 10/11/20 11/18/20 History Gabapentin 600 mg PO TID 10/11/20 11/18/20 History Primidone [Mysoline] 100 mg PO HS 10/11/20 11/18/20 History lisinopriL 10 mg PO DAILY 10/11/20 11/18/20 History metFORMIN HCL ER [Glucophage XR] 1,000 mg PO HS 10/11/20 11/18/20 History metFORMIN HCL ER [Glucophage XR] 500 mg PO DAILY 10/11/20 11/18/20 History Calcium Carbonate [Tums] 1,000 mg PO QID PRN 11/18/20 11/18/20 History Allergies Allergy/AdvReac Type Severity Reaction Status Date / Time shellfish derived [Shellfish] Allergy Unknown Rash/Hives Verified 11/18/20 22:31 iodine Allergy Rash/Hives Verified 11/18/20 22:31 Penicillins Allergy Rash/Hives Verified 11/18/20 22:31 Physical Exam Vitals: Vital Signs Temp Pulse Resp BP Pulse Ox 11/19/20 07:44 97.8 F 75 16 139/64 97 11/19/20 03:36 72 18 159/84 94 L 11/18/20 23:13 98.6 F 75 16 186/79 98 11/18/20 20:50 77 18 125/73 95 11/18/20 16:38 99.2 F 88 18 124/81 98 Intake and Output 11/18/20 11/19/20 11/19/20 22:59 06:59 14:59 Other: Weight 66.224 kg GENERAL: The patient is alert and oriented x3, not in any acute distress. Well developed, well nourished. HEENT: Pupils are round and equally reacting to light. EOMI. No scleral icterus. No conjunctival pallor. Normocephalic, atraumatic. No pharyngeal erythema. No thyromegaly. CARDIOVASCULAR: S1 and S2 present. No murmurs, rubs, or gallops. PULMONARY: Chest is clear to auscultation, no wheezing or crackles. -ABDOMEN: Soft, epigastric tenderness, no rebound tenderness. Suprapubic tenderness, no rebound tenderness, nondistended, normoactive bowel sounds. No palpable organomegaly. MUSCULOSKELETAL: No joint swelling or deformity. EXTREMITIES: No cyanosis, clubbing, or pedal edema. NEUROLOGICAL: Gross neurological examination did not reveal any focal deficits. SKIN: No rashes. No petechiae Results CBC & Chem 7: 11/18/20 16:47 11/18/20 16:47 Labs: Abnormal Lab Results - Last 24 Hours (Table) 11/18/20 11/18/20 11/18/20 Range/Units 16:47 16:47 19:47 WBC 13.5 H (3.8-10.6) k/uL Neutrophils # 10.2 H (1.3-7.7) k/uL Chloride 89 L (98-107) mmol/L Glucose 140 H (74-99) mg/dL AST 47 H (14-36) U/L ALT 117 H (4-34) U/L Alkaline Phosphatase 183 H (38-126) U/L Lipase (23-300) U/L Urine Appearance Cloudy H (Clear) Urine Protein 1+ H (Negative) Urine Ketones 3+ H (Negative) Urine Bilirubin 1+ H (Negative) Ur Leukocyte Esterase Large H (Negative) Urine WBC >182 H (0-5) /hpf Urine Bacteria Many H (None) /hpf Urine Mucus Rare H (None) /hpf 11/18/20 Range/Units 20:45 WBC (3.8-10.6) k/uL Neutrophils # (1.3-7.7) k/uL Chloride (98-107) mmol/L Glucose (74-99) mg/dL AST (14-36) U/L ALT (4-34) U/L Alkaline Phosphatase (38-126) U/L Lipase 311 H (23-300) U/L Urine Appearance (Clear) Urine Protein (Negative) Urine Ketones (Negative) Urine Bilirubin (Negative) Ur Leukocyte Esterase (Negative) Urine WBC (0-5) /hpf Urine Bacteria (None) /hpf Urine Mucus (None) /hpf Assessment and Plan Assessment: Acute gastroenteritis Acute urinary tract infection gallstone disease Diabetes mellitus Fibromyalgia History of GERD Tension Hyperlipidemia Osteoarthritis Hypothyroidism Parkinson disease Chronic back pain Chronic kidney disease and she follows up with Dr. Coto History of falls Plan: This is a pleasant 80 years old female who presents with UTI. Continue with ceftriaxone follow-up urine culture Continue gentle hydration Start Flagyl gi consult Bowel rest, IV fluid and pain management Check HIDA scan to rule out cholecystitis Labs and medication were reviewed.. Continue same treatment. Continue with symptomatic treatment. Resume home medication. Monitor lytes and vitals. DVT and GI prophylaxis. Further recommendations depends on the clinical course of the patient DVT prophylaxis: Subcutaneous heparin GI Prophylaxis: Ppu PT/OT: Pending
[2020-11-19] MEDS: PANTOPRAZOLE 40 MG/10 ML VIAL IVP SCH (08:32)
[2020-11-19] MEDS: HEPARIN SODIUM,PORCINE/PF 5,000 UNIT/0.5 ML SYRINGE SQ SCH ×2 (08:33→19:41)
[2020-11-19] MEDS: DEXTROSE 5%-0.9% NACL 1,000 ML IV SCH ×2 (08:38→22:44)
[2020-11-19 09:22] LABS: Basophils % (A) 1 %; Eosinophils # (A) 0.1 k/uL (0-0.7); Eosinophils % (A) 2 %; HCT 36.5 % (34.0-46.0); HGB 12.4 gm/dL (11.4-16.0); Lymphocytes % (A) 25 %; MCH 30.9 pg (25.0-35.0); MCHC 33.9 g/dL (31.0-37.0); MCV 91.2 fL (80.0-100.0); Mean Platelet Volume 6.6; Monocytes # (A) 0.5 k/uL (0-1.0); Monocytes % (A) 6 %; Neutrophils # (A) 5.3 k/uL (1.3-7.7); Neutrophils % (A) 64 %; Platelet Count 300 k/uL (150-450); RDW 13.5 % (11.5-15.5); WBC 8.3 k/uL (3.8-10.6)
[2020-11-19] MEDS: metroNIDAZOLE-NS PMX 500 MG in SALINE 1 100ML.BAG IVPB SCH ×2 (09:24→15:16)
[2020-11-19 09:42] LABS: ALT 80 U/L (4-34); AST 31 U/L (14-36); African American GFR (CKD) >90 (>60 ml/min/1.73 sqM); Albumin 3.5 g/dL (3.5-5.0); Albumin/Globulin Ratio 1.4; Alkaline Phosphatase 124 U/L (38-126); Anion Gap 12 mmol/L; Blood Urea Nitrogen 19 mg/dL (7-17); Calcium 8.6 mg/dL (8.4-10.2); Carbon Dioxide 29 mmol/L (22-30); Chloride 97 mmol/L (98-107); Globulin 2.5 g/dL; Glucose 117 mg/dL (74-99); Lipase 108 U/L (23-300); Non-African American GFR(CKD) 81 (>60 ml/min/1.73 sqM); Potassium 3.8 mmol/L (3.5-5.1); Sodium 138 mmol/L (137-145); Total Bilirubin 0.6 mg/dL (0.2-1.3)
--- NOTE | 2020-11-19 13:16 | NM ---
EXAMINATION TYPE: NM hepatobiliary wo EF DATE OF EXAM: 11/19/2020 COMPARISON: Ultrasound abdomen limited yesterday HISTORY: Right upper quadrant pain with nausea and vomiting. Elevated liver enzymes. Known gallstones . TECHNIQUE: After the intravenous administration of 5.0 mCi Tc 99m Mebrofenin hepatobiliary scintigrap hy is performed. Immediate images post injection. FINDINGS: There is satisfactory initial accumulation of tracer by the liver. The gallbladder is no t visualized even after 60 minutes. There is a rounded focus of increased uptake right mid abdomen la terally that is identified at 3 hours and remains prominent at 4 hours is thought to reflect eventua l visualization of gallbladder The small bowel activity is noted within 30 minutes. IMPRESSION: Delayed but eventual filling of gallbladder would argue against acute cholecystitis.
--- NOTE | 2020-11-19 15:07 | P.CONS ---
History of Present Illness - Reason for Consult Consult date: 11/19/20 (Patient was tempted to be seen in the morning however she was done for HIDA scan at that time) Nausea and vomiting Requesting physician: Edson E Sheet - Chief Complaint Nausea and vomiting - History of Present Illness This is an 80-year-old female who presented to the emergency department yesterday evening for evaluation for vomiting. Patient has a past medical history of type 2 diabetes, Parkinson's, GERD, hyperlipidemia, hypertension, thyroid disorder, fibromyalgia and osteoarthritis. The patient states she has had intermittent nausea and vomiting for the last 2-3 months. States that she would have occasional vomiting after breakfast, however she did not think much of it. Then over the last 10 days she has been having increased vomiting and inability to hold anything down. She did feel well for 1 week and then last Wednesday and she started having a decreased appetite, Wednesday she tried to eat but she cannot keep anything down. Patient states vomiting occurs after eating. She does have a history of GERD and takes omeprazole daily. She does state that approximately 5 years or greater she had an EGD and colonoscopy which she believes was normal. Denies any previous history of gallbladder disease. On admission she was noted to have WBC 13.5 hemoglobin 14.8 hematocrit 44 platelet count 359,000 total bilirubin 0.9 AST 47 ALT 117 alkaline phosphatase 183 lipase 311. She underwent an abdominal ultrasound that showed gallstones, no dilated ducts, CBD was within normal limits at 0.7 cm. Patient underwent HIDA scan with an impression stating delayed but eventual filling of gallbladder would argue against acute cholecystitis. Repeat labs today show no leukocytosis, total bilirubin 0.6 AST 31 ALT 80 alkaline phosphatase 124 lipase 108. Patient states nausea and vomiting have improved. Her daughter who is at bedside stated that she did have some dark emesis yesterday and this morning. Patient states bowel movements have been normal for the most part, slightly bluish yesterday. No melena or hematochezia. Patient states she did have sharp abdominal pain mostly in the right upper quadrant epigastric region. Denies any fevers or chills. Review of Systems REVIEW OF SYSTEMS: CARDIOPULMONARY: No chest pain or shortness of breath. Gastrointestinal: Right upper quadrant and epigastric pain. Nausea with vomiting. No hematemesis, reported coffee-ground emesis. No rectal bleeding, or melena. GENITOURINARY: No dysuria or hematuria. MUSCULOSKELETAL: Reports normal range of motion., Joint pain. SKIN: No rashes. No jaundice. ENDOCRINE: No chills, fevers. No excessive weight gain or loss. No polydipsia or polyuria. PSYCHIATRIC: Unremarkable. NEUROLOGY: No change in mental status. Denies dizziness, headache. ENT: Vision unremarkable. CONSTITUTIONAL: No recent weight loss. No fever, chills, night sweats. Past Medical History Past Medical History: Diabetes Mellitus, Fibromyalgia, GERD/Reflux, Hyperlipidemia, Hypertension, Osteoarthritis (OA), Thyroid Disorder Additional Past Medical History / Comment(s): PARKINSONS, HEART MURMUR, VARICOSE VEINS, BACK PAIN- RECEIVES INJECTIONS FROM DR STERLING 2 years ago., DIET CONTROLLED DIABETES, HX OF ANEMIA, LOW FUNCTIONING KIDNEYS (DR COTO)., PAIN BACK- USING CANE OR WALKER. Falls. History of Any Multi-Drug Resistant Organisms: None Reported Past Surgical History: Bladder Surgery, Hysterectomy, Orthopedic Surgery Additional Past Surgical History / Comment(s): BILAT KNEE REPLACEMENTS/BILATERAL HIPS, LT SHOULDER REPLACEMENT/TOTAL RT ELBOW REPLACEMENT/BILAT CATARACT REMOVAL Past Anesthesia/Blood Transfusion Reactions: No Reported Reaction Past Psychological History: Depression Smoking Status: Never smoker Past Alcohol Use History: None Reported Past Drug Use History: None Reported - Past Family History Father Family Medical History: Cancer Additional Family Medical History / Comment(s): PROSTATE CANCER Sister(s) Family Medical History: Cancer Additional Family Medical History / Comment(s): SISTERS- BREAST AND LUNG CANCER Medications and Allergies Home Medications Medication Instructions Recorded Confirmed Type Atorvastatin [Lipitor] 10 mg PO HS 09/19/13 11/18/20 History Levothyroxine Sodium [Synthroid] 25 mcg PO DAILY 09/19/13 11/18/20 History PARoxetine HCL [Paroxetine HCl] 20 mg PO DAILY 09/19/13 11/18/20 History Carbidopa-Levodopa 25-100 mg 1 tab PO QID 03/29/14 11/18/20 History [Sinemet 25-100 mg] Omeprazole [PriLOSEC] 20 mg PO BID 03/29/14 11/18/20 History Primidone [Mysoline] 50 mg PO BID@0700,1200 03/29/14 11/18/20 History atenoloL [Tenormin] 25 mg PO DAILY 03/29/14 11/18/20 History Cholecalciferol [Vitamin D3 (10 400 unit PO DAILY 08/11/18 11/18/20 History Mcg = 400 Iu)] Folic Acid 0.4 mg PO DAILY 08/11/18 11/18/20 History calcitrioL [Rocaltrol] 0.25 mcg PO SOARES 08/11/18 11/18/20 History Aspirin EC [Ecotrin Low Dose] 81 mg PO HS 10/11/20 11/18/20 History Gabapentin 600 mg PO TID 10/11/20 11/18/20 History Primidone [Mysoline] 100 mg PO HS 10/11/20 11/18/20 History lisinopriL 10 mg PO DAILY 10/11/20 11/18/20 History metFORMIN HCL ER [Glucophage XR] 1,000 mg PO HS 10/11/20 11/18/20 History metFORMIN HCL ER [Glucophage XR] 500 mg PO DAILY 10/11/20 11/18/20 History Calcium Carbonate [Tums] 1,000 mg PO QID PRN 11/18/20 11/18/20 History Allergies Allergy/AdvReac Type Severity Reaction Status Date / Time shellfish derived [Shellfish] Allergy Unknown Rash/Hives Verified 11/18/20 22:31 iodine Allergy Rash/Hives Verified 11/18/20 22:31 Penicillins Allergy Rash/Hives Verified 11/18/20 22:31 Physical Exam Vitals: Vital Signs Temp Pulse Resp BP Pulse Ox 11/19/20 07:44 97.8 F 75 16 139/64 97 11/19/20 03:36 72 18 159/84 94 L 11/18/20 23:13 98.6 F 75 16 186/79 98 11/18/20 20:50 77 18 125/73 95 11/18/20 16:38 99.2 F 88 18 124/81 98 Intake and Output 11/18/20 11/19/20 11/19/20 22:59 06:59 14:59 Other: Weight 66.224 kg General appearance: The patient is alert, oriented, appears in no acute distress. HET: Head is normocephalic and atraumatic. Conjunctiva pink. Sclera anicteric. Neck: Supple without lymphadenopathy. Trachea midline. Heart: S1 S2. Regular rate and rhythm. Lungs: Clear to auscultation. Abdomen: Soft, right upper quadrant, epigastric and left upper quadrant tenderness, nondistended with bowel sounds. No guarding or rigidity. Skin: No rashes. No jaundice. Extremities: Normal skin color and turgor. No pedal edema. Neurological: No focal deficits. Alert and oriented 3.. Results CBC & Chem 7: 11/19/20 08:50 11/19/20 08:50 Labs: Abnormal Lab Results - Last 24 Hours (Table) 11/18/20 11/18/20 11/18/20 Range/Units 16:47 16:47 19:47 WBC 13.5 H (3.8-10.6) k/uL Neutrophils # 10.2 H (1.3-7.7) k/uL Chloride 89 L (98-107) mmol/L Glucose 140 H (74-99) mg/dL AST 47 H (14-36) U/L ALT 117 H (4-34) U/L Alkaline Phosphatase 183 H (38-126) U/L Lipase (23-300) U/L Urine Appearance Cloudy H (Clear) Urine Protein 1+ H (Negative) Urine Ketones 3+ H (Negative) Urine Bilirubin 1+ H (Negative) Ur Leukocyte Esterase Large H (Negative) Urine WBC >182 H (0-5) /hpf Urine Bacteria Many H (None) /hpf Urine Mucus Rare H (None) /hpf 11/18/20 Range/Units 20:45 WBC (3.8-10.6) k/uL Neutrophils # (1.3-7.7) k/uL Chloride (98-107) mmol/L Glucose (74-99) mg/dL AST (14-36) U/L ALT (4-34) U/L Alkaline Phosphatase (38-126) U/L Lipase 311 H (23-300) U/L Urine Appearance (Clear) Urine Protein (Negative) Urine Ketones (Negative) Urine Bilirubin (Negative) Ur Leukocyte Esterase (Negative) Urine WBC (0-5) /hpf Urine Bacteria (None) /hpf Urine Mucus (None) /hpf Comments: Abdominal ultrasound: Normal right kidney. There appears to be some gallstones. Exam was difficult. No dilated ducts. HIDA scan: Delayed but eventual filling of gallbladder would argue against acute cholecystitis. Assessment and Plan (1) Nausea and vomiting Narrative/Plan: 80-year-old female with multiple comorbidities who presented to the emergency department with complaints of nausea and vomiting that has been intermittent over the last 2-3 months with worsening symptoms over the last 10-14 days. Patient states since last week Hema she's been unable to keep any food down. She vomits after eating or drinking. She's had associated right upper quadrant discomfort as well as some epigastric pain. She does have a history of GERD and takes omeprazole daily. She thought perhaps symptoms were related to her acid reflux. States she had an EGD and colonoscopy greater than 5 years ago which she believed was done at this hospital however there are no reports. Daughter who is at the bedside did state that she thought some of the emesis was dark in color. There is been no reported of bright red blood. As part of her evalua tion in the emergency department she had an abdominal ultrasound that did show cholelithiasis. No dilated ducts, CBD within normal limits. HIDA scan was ordered as well by primary medicine showing delayed but eventual filling of gallbladder that would argue against acute cholecystitis. Patient's been afebrile. On admission she had initial mild elevation in her white count at 13.5 but since then has normalized to 8.3. She had mild elevation in her LFTs on admission with a total bilirubin of 0.9 AST 47 ALT 117 alk phos 183 lipase 311. Repeat labs today show total bilirubin 0.6 AST 31 ALT 80 alk phos 124 lipase 108. Possible etiologies of nausea and vomiting could be related to gallbladder, will consult general surgery. Patient requesting Dr. Crain as she has seen him in the past. Also need to consider possible peptic ulcer disease, gastritis, esophagitis or other etiologies. Current Visit: Yes Status: Acute Code(s): R11.2 - NAUSEA WITH VOMITING, UNSPECIFIED SNOMED Code(s): 14897537 (2) Cholelithiasis Current Visit: Yes Status: Acute Code(s): K80.20 - CALCULUS OF GALLBLADDER W/O CHOLECYSTITIS W/O OBSTRUCTION SNOMED Code(s): 389689282 Plan: 1. Patient may have clear liquid diet 2. Nothing by mouth after midnight 3. Protonix twice a day for GI prophylaxis 4. Repeat CBC and CMP in the morning 5. Avoid NSAIDs 6. Consult to surgical services Dr. Crain 7. Further recommendations forthcoming Thank you for this consultation, we will continue to follow. Dr. Raeann Abdul I agree with the dictator's note, documented as a scribe by Taryn Ford.
[2020-11-19 17:20] LABS: Glucose,Whole Blood 105 mg/dL (75-99)
[2020-11-19 20:26] LABS: Glucose,Whole Blood 133 mg/dL (75-99)
[2020-11-19] MEDS: ONDANSETRON 4 MG/2 ML VIAL IVP PRN (22:47)
[2020-11-20] MEDS: metroNIDAZOLE-NS PMX 500 MG in SALINE 1 100ML.BAG IVPB SCH ×2 (00:12→07:56)
[2020-11-20 07:37] LABS: Glucose,Whole Blood 154 mg/dL (75-99)
[2020-11-20 07:41] LABS: ALT 58 U/L (4-34); AST 28 U/L (14-36); African American GFR (CKD) >90 (>60 ml/min/1.73 sqM); Albumin 3.2 g/dL (3.5-5.0); Albumin/Globulin Ratio 1.3; Alkaline Phosphatase 116 U/L (38-126); Anion Gap 10 mmol/L; Blood Urea Nitrogen 11 mg/dL (7-17); Calcium 8.3 mg/dL (8.4-10.2); Carbon Dioxide 26 mmol/L (22-30); Chloride 104 mmol/L (98-107); Globulin 2.5 g/dL; Glucose 161 mg/dL (74-99); Non-African American GFR(CKD) 87 (>60 ml/min/1.73 sqM); Potassium 3.3 mmol/L (3.5-5.1); Sodium 140 mmol/L (137-145); Total Bilirubin 0.4 mg/dL (0.2-1.3); Total Protein 5.7 g/dL (6.3-8.2)
[2020-11-20] MEDS: PANTOPRAZOLE 40 MG/10 ML VIAL IVP SCH (07:55)
[2020-11-20] MEDS: HEPARIN SODIUM,PORCINE/PF 5,000 UNIT/0.5 ML SYRINGE SQ SCH ×2 (07:56→20:59)
[2020-11-20] MEDS: ONDANSETRON 4 MG/2 ML VIAL IVP PRN ×2 (07:56→20:59)
[2020-11-20 09:01] LABS: Basophils # (A) 0.05 X 10*3/uL (0.00-0.10); Basophils % (A) 0.7 %; Eosinophils % (A) 1.4 %; HCT 34.6 % (37.2-46.3); HGB 11.1 g/dL (12.0-15.0); Lymphocytes # (A) 1.39 X 10*3/uL (0.90-5.00); Lymphocytes % (A) 19.6 %; MCH 29.4 pg (27.0-32.0); MCHC 32.1 g/dL (32.0-37.0); MCV 91.8 fL (80.0-97.0); Monocytes # (A) 0.64 X 10*3/uL (0.20-1.00); Neutrophils # (A) 4.86 X 10*3/uL (1.80-7.70); Neutrophils % (A) 68.7 %; Platelet Count 250 X 10*3/uL (140-440); RBC 3.77 X 10*6/uL (4.10-5.20); WBC 7.08 X 10*3/uL (4.50-10.00)
[2020-11-20] MEDS ORDERED: Potassium Replacement Protocol 1 EACH MISC MISCELLANE PRN (11:54)
--- NOTE | 2020-11-20 11:59 | P.PN ---
Subjective This is a pleasant 80 years old female with past medical history of Diabetes Mellitus, Fibromyalgia, GERD/Reflux, Hyperlipidemia, Hypertension, Oste oarthritis (OA), hypothyroidism , PARKINSONS, HEART MURMUR, VARICOSE VEINS, BACK PAIN- RECEIVES INJECTIONS FROM DR STERLING 2 years ago., DIET CONTROLLED DIABETES, HX OF ANEMIA, LOW FUNCTIONING KIDNEYS (DR COTO)., PAIN BACK- USING CANE OR WALKER. Falls. She is a patient of Dr. Ronquillo. She follows up also with Dr. Fitzpatrick and neurologist for her Parkinson disease and orthopedic for her arthritis Because of epigastric abdominal pain for the last 7-10 days, increased by eating and drinking that patient could not have food or medication over the last 2-3 days. Usually her pain is 0/10 while she is lying down but it comes up and increased when she tries to sit up. Last 2-3 days she started having vomiting. Also 3 days ago she had loose diarrhea dark-colored but that was stopped over the last 2 days. Patient was not eating and drinking well She denies chest pain or dyspnea. She denies dysuria or change in frequency or urgency with her urination but just suprapubic tenderness No smoking, no alcohol or illicit drugs per patient Vitas looks stable Showing mild leukocytosis of 13.5 K, C and INR, BMP are unremarkable. Creatinine normal 0.7. Liver enzymes slightly elevated with AST 47 and ALT 117. Total bilirubin is normal 0.9. Lipase is slightly elevated at 311. Urine analysis is suspicious for infection. Matos virus nondetected. Abdominal ultrasound showing normal right kidney. There appeared to be some gallstones. No dilated ducts In the emergency room she was receiving ceftriaxone, Levaquin, normal saline at 1 30 mL/h 11/20/2020 Patient is still complaining of from nausea vomiting, or drink abdominal pain and tenderness. No bowel movement. No significant suprapubic tenderness today after starting Rocephin yesterday. Calcitonin came back negative at 0.06. Flagyl was discontinued. Liver enzymes trending down are not elevated. He remains on ceftriaxone for UTI pending urine culture on normal saline at 75 mL/h. Surgical team were consulted for possible cholecystitis although HIDA scans showed delayed imaging but less likely acute cholecystitis per reports. GI team on the case Objective - Vital Signs Vital signs: Vital Signs Temp 98.2 F 11/20/20 07:00 Pulse 68 11/20/20 08:00 Resp 16 11/20/20 08:00 BP 156/50 11/20/20 07:00 Pulse Ox 95 11/20/20 07:00 Intake & Output 11/19/20 11/20/20 11/20/20 18:59 06:59 18:59 Intake Total 20 Balance 20 Weight 66.224 kg Intake: Oral 20 Other: Voiding Method Toilet Toilet # Voids 1 - Exam GENERAL: The patient is alert and oriented x3, not in any acute distress. Well developed, well nourished. HEENT: Pupils are round and equally reacting to light. EOMI. No scleral icterus. No conjunctival pallor. Normocephalic, atraumatic. No pharyngeal erythema. No thyromegaly. CARDIOVASCULAR: S1 and S2 present. No murmurs, rubs, or gallops. PULMONARY: Chest is clear to auscultation, no wheezing or crackles. -ABDOMEN: Soft, RUQ tenderness, no rebound tenderness or guarding, nondistended, normoactive bowel sounds. No palpable organomegaly. MUSCULOSKELETAL: No joint swelling or deformity. EXTREMITIES: No cyanosis, clubbing, or pedal edema. NEUROLOGICAL: Gross neurological examination did not reveal any focal deficits. SKIN: No rashes. no petechiae. - Labs CBC & Chem 7: 11/20/20 06:17 11/20/20 06:17 Labs: Abnormal Lab Results - Last 24 Hours (Table) 11/19/20 11/19/20 11/20/20 Range/Units 17:19 20:24 06:17 RBC 3.77 L (4.10-5.20) X 10*6/uL Hgb 11.1 L (12.0-15.0) g/dL Hct 34.6 L (37.2-46.3) % MPV 9.0 L (9.5-12.2) fL Potassium (3.5-5.1) mmol/L Glucose (74-99) mg/dL POC Glucose (mg/dL) 105 H 133 H (75-99) mg/dL Calcium (8.4-10.2) mg/dL ALT (4-34) U/L Total Protein (6.3-8.2) g/dL Albumin (3.5-5.0) g/dL 11/20/20 11/20/20 Range/Units 06:17 07:32 RBC (4.10-5.20) X 10*6/uL Hgb (12.0-15.0) g/dL Hct (37.2-46.3) % MPV (9.5-12.2) fL Potassium 3.3 L (3.5-5.1) mmol/L Glucose 161 H (74-99) mg/dL POC Glucose (mg/dL) 154 H (75-99) mg/dL Calcium 8.3 L (8.4-10.2) mg/dL ALT 58 H (4-34) U/L Total Protein 5.7 L (6.3-8.2) g/dL Albumin 3.2 L (3.5-5.0) g/dL Assessment and Plan Assessment: gallstone disease, with possible biliary colic versus acute cholecystitis Acute urinary tract infection Possible Acute gastroenteritis Diabetes mellitus Fibromyalgia History of GERD Tension Hyperlipidemia Osteoarthritis Hypothyroidism Parkinson disease Chronic back pain Chronic kidney disease and she follows up with Dr. Coto History of falls Plan: This is a pleasant 80 years old female who presents with UTI. Continue with ceftriaxone follow-up urine culture Continue gentle hydration Surgery team consult gi consult Bowel rest, IV fluid and pain management Labs and medication were reviewed.. Continue same treatment. Continue with symptomatic treatment. Resume home medication. Monitor lytes and vitals. DVT and GI prophylaxis. Further recommendations depends on the clinical course of the patient DVT prophylaxis: Subcutaneous heparin GI Prophylaxis: Ppu PT/OT: Pending
[2020-11-20 12:18] LABS: Glucose,Whole Blood 115 mg/dL (75-99)
--- NOTE | 2020-11-20 12:58 | P.GSCN ---
<Kerry Stevenson - Last Filed: 11/20/20 12:47> History of Present Illness Consult date: 11/20/20 History of present illness: CHIEF COMPLAINT: Abdominal pain HISTORY OF PRESENT ILLNESS: This is a 80-year-old female who presented to hospital with complaints of abdominal pain that starts on the right upper quadrant and crosses over the upper abdomen. She reports she's had pain for about 7-10 days. She describes the pain is intermittent and does occur after eating. She has been vomiting after eating. She reports the vomiting has gotten worse over the last couple a days. She's unable to even keep down water. She came into the hospital for further evaluation. She had an abdominal ultra sound completed showing a normal right kidney. There appears to be some gallstones. No dilated ducts. She did have a positive Sanon sign. HIDA scan showed delayed but eventual filling of the gallbladder would argue against acute cholecystitis. Patient did have mildly elevated LFTs with a mildly elevated lipase of 311. PAST MEDICAL HISTORY: Diabetes Mellitus, Parkinson's, Fibromyalgia, GERD/Reflux, Hyperlipidemia, Hypertension, Osteoarthritis (OA), Thyroid Disorder, heart murmur, anemia PAST SURGICAL HISTORY: Bladder surgery and hysterectomy MEDICATIONS: See list. ALLERGIES: See list. SOCIAL HISTORY: No illicit drug use. REVIEW OF SYSTEMS: CONSTITUTIONAL: Denies fever or chills. HEENT: Denies blurred vision, vision changes, or eye pain. Denies hemoptysis CARDIOVASCULAR: Denies chest pain or pressure. RESPIRATORY: No shortness of breath. GASTROINTESTINAL: See HPI for pertinent findings HEMATOLOGIC: Denies bleeding disorders. GENITOURINARY: Denies any blood in urine or increased urinary frequency. SKIN: Denies pruitis. Denies rash. PHYSICAL EXAM: VITAL SIGNS: Reviewed GENERAL: Well-developed in no acute distress. HEENT: No sclera icterus. Extraocular movements grossly intact. Moist buccal mucosa. Head is atraumatic, normocephalic. No nasal drainage. ABDOMEN: Soft. Nondistended. Tenderness with palpation of the right upper quadrant NEUROLOGIC: Alert and oriented. Cranial nerves II through XII grossly intact. LABORATORY DATA: WBC 13.5 down to 7.08 hemoglobin 11.1 platelets 250 Sodium 140 potassium 3.3 BUN 11 creatinine 0.6 total bilirubin 0.4 AST 47 now down to 28 ALT 117 down to 58 alk phos 183 down to 116 Lipase 311 normalized at 108 Evidence of a UTI Covid 19 not detected IMAGING: HIDA and ultrasound results as stated above ASSESSMENT: 1. Acute cholecystitis with cholelithiasis and positive Sanon sign on ultrasound 2. Mildly elevated LFTs and mildly elevated lipase. Possible choledocholithiasis PLAN: -Patient scheduled for laparoscopic cholecystectomy tomorrow, 11/21/[address] Crain -Patient could have clear liquid diet today and nothing by mouth after midnight -Continue IV antibiotics -Continue IV fluids Thank you for this consultation [employer] note has been reviewed by physician. Signing provider agrees with the documented findings, assessment, and plan of care. Past Medical History Past Medical History: Diabetes Mellitus, Fibromyalgia, GERD/Reflux, Hyper lipidemia, Hypertension, Osteoarthritis (OA), Thyroid Disorder Additional Past Medical History / Comment(s): PARKINSONS, HEART MURMUR, VARICOSE VEINS, BACK PAIN- RECEIVES INJECTIONS FROM DR STERLING 2 years ago., DIET CONTROLLED DIABETES, HX OF ANEMIA, LOW FUNCTIONING KIDNEYS (DR COTO)., PAIN BACK- USING CANE OR WALKER. Falls. History of Any Multi-Drug Resistant Organisms: None Reported Past Surgical History: Bladder Surgery, Hysterectomy, Orthopedic Surgery Additional Past Surgical History / Comment(s): BILAT KNEE REPLACEMENTS/BILATERAL HIPS, LT SHOULDER REPLACEMENT/TOTAL RT ELBOW REPLACEMENT/BILAT CATARACT REMOVAL Past Anesthesia/Blood Transfusion Reactions: No Reported Reaction Past Psychological History: Depression Smoking Status: Never smoker Past Alcohol Use History: None Reported Past Drug Use History: None Reported - Past Family History Father Family Medical History: Cancer Additional Family Medical History / Comment(s): PROSTATE CANCER Sister(s) Family Medical History: Cancer Additional Family Medical History / Comment(s): SISTERS- BREAST AND LUNG CANCER Medications and Allergies Home Medications Medication Instructions Recorded Confirmed Type Atorvastatin [Lipitor] 10 mg PO HS 09/19/13 11/18/20 History Levothyroxine Sodium [Synthroid] 25 mcg PO DAILY 09/19/13 11/18/20 History PARoxetine HCL [Paroxetine HCl] 20 mg PO DAILY 09/19/13 11/18/20 History Carbidopa-Levodopa 25-100 mg 1 tab PO QID 03/29/14 11/18/20 History [Sinemet 25-100 mg] Omeprazole [PriLOSEC] 20 mg PO BID 03/29/14 11/18/20 History Primidone [Mysoline] 50 mg PO BID@0700,1200 03/29/14 11/18/20 History atenoloL [Tenormin] 25 mg PO DAILY 03/29/14 11/18/20 History Cholecalciferol [Vitamin D3 (10 400 unit PO DAILY 08/11/18 11/18/20 History Mcg = 400 Iu)] Folic Acid 0.4 mg PO DAILY 08/11/18 11/18/20 History calcitrioL [Rocaltrol] 0.25 mcg PO SOARES 08/11/18 11/18/20 History Aspirin EC [Ecotrin Low Dose] 81 mg PO HS 10/11/20 11/18/20 History Gabapentin 600 mg PO TID 10/11/20 11/18/20 History Primidone [Mysoline] 100 mg PO HS 10/11/20 11/18/20 History lisinopriL 10 mg PO DAILY 10/11/20 11/18/20 History metFORMIN HCL ER [Glucophage XR] 1,000 mg PO HS 10/11/20 11/18/20 History metFORMIN HCL ER [Glucophage XR] 500 mg PO DAILY 10/11/20 11/18/20 History Calcium Carbonate [Tums] 1,000 mg PO QID PRN 11/18/20 11/18/20 History Allergies Allergy/AdvReac Type Severity Reaction Status Date / Time shellfish derived [Shellfish] Allergy Unknown Rash/Hives Verified 11/18/20 22:31 iodine Allergy Rash/Hives Verified 11/18/20 22:31 Penicillins Allergy Rash/Hives Verified 11/18/20 22:31 Surgical - Exam Vital Signs Temp Pulse Resp BP Pulse Ox 99.2 F 88 18 124/81 98 11/18/20 16:38 11/18/20 16:38 11/18/20 16:38 11/18/20 16:38 11/18/20 16:38 Results - Labs 11/20/20 06:17 11/20/20 06:17 Abnormal Lab Results - Last 24 Hours (Table) 11/19/20 11/19/20 11/20/20 Range/Units 17:19 20:24 06:17 RBC 3.77 L (4.10-5.20) X 10*6/uL Hgb 11.1 L (12.0-15.0) g/dL Hct 34.6 L (37.2-46.3) % MPV 9.0 L (9.5-12.2) fL Potassium (3.5-5.1) mmol/L Glucose (74-99) mg/dL POC Glucose (mg/dL) 105 H 133 H (75-99) mg/dL Calcium (8.4-10.2) mg/dL ALT (4-34) U/L Total Protein (6.3-8.2) g/dL Albumin (3.5-5.0) g/dL 11/20/20 11/20/20 11/20/20 Range/Units 06:17 07:32 12:16 RBC (4.10-5.20) X 10*6/uL Hgb (12.0-15.0) g/dL Hct (37.2-46.3) % MPV (9.5-12.2) fL Potassium 3.3 L (3.5-5.1) mmol/L Glucose 161 H (74-99) mg/dL POC Glucose (mg/dL) 154 H 115 H (75-99) mg/dL Calcium 8.3 L (8.4-10.2) mg/dL ALT 58 H (4-34) U/L Total Protein 5.7 L (6.3-8.2) g/dL Albumin 3.2 L (3.5-5.0) g/dL Diabetes panel 11/20/20 Range/Units 06:17 Sodium 140 (137-145) mmol/L Potassium 3.3 L (3.5-5.1) mmol/L Chloride 104 (98-107) mmol/L Carbon Dioxide 26 (22-30) mmol/L BUN 11 (7-17) mg/dL Creatinine 0.60 (0.52-1.04) mg/dL Glucose 161 H (74-99) mg/dL Calcium 8.3 L (8.4-10.2) mg/dL AST 28 (14-36) U/L ALT 58 H (4-34) U/L Alkaline Phosphatase 116 (38-126) U/L Total Protein 5.7 L (6.3-8.2) g/dL Albumin 3.2 L (3.5-5.0) g/dL Calcium panel 11/20/20 Range/Units 06:17 Calcium 8.3 L (8.4-10.2) mg/dL Albumin 3.2 L (3.5-5.0) g/dL Pituitary panel 11/20/20 Range/Units 06:17 Sodium 140 (137-145) mmol/L Potassium 3.3 L (3.5-5.1) mmol/L Chloride 104 (98-107) mmol/L Carbon Dioxide 26 (22-30) mmol/L BUN 11 (7-17) mg/dL Creatinine 0.60 (0.52-1.04) mg/dL Glucose 161 H (74-99) mg/dL Calcium 8.3 L (8.4-10.2) mg/dL Adrenal panel 11/20/20 Range/Units 06:17 Sodium 140 (137-145) mmol/L Potassium 3.3 L (3.5-5.1) mmol/L Chloride 104 (98-107) mmol/L Carbon Dioxide 26 (22-30) mmol/L BUN 11 (7-17) mg/dL Creatinine 0.60 (0.52-1.04) mg/dL Glucose 161 H (74-99) mg/dL Calcium 8.3 L (8.4-10.2) mg/dL Total Bilirubin 0.4 (0.2-1.3) mg/dL AST 28 (14-36) U/L ALT 58 H (4-34) U/L Alkaline Phosphatase 116 (38-126) U/L Total Protein 5.7 L (6.3-8.2) g/dL Albumin 3.2 L (3.5-5.0) g/dL <Parish Crain - Last Filed: 11/20/20 19:52> History of Present Illness History of present illness: As above. Patient with epigastric pain and vomiting. Ultrasound showing gallstones and HIDA scan shows slow filling of the gallbladder consistent with cholecystitis. Options reviewed. We'll proceed with laparoscopic, possible open cholecystectomy tomorrow. Risks of bleeding, infection, trocar-related injury, bile leak, bile duct injury, retained common bile duct stone, conversion to an open procedure, and anesthesia-related complications were discussed. Patient understands and wishes to proceed. Surgical - Exam Vital Signs Temp Pulse Resp BP Pulse Ox 99.2 F 88 18 124/81 98 11/18/20 16:38 11/18/20 16:38 11/18/20 16:38 11/18/20 16:38 11/18/20 16:38 Results - Labs 11/20/20 06:17 11/20/20 06:17 Abnormal Lab Results - Last 24 Hours (Table) 11/19/20 11/20/20 11/20/20 Range/Units 20:24 06:17 06:17 RBC 3.77 L (4.10-5.20) X 10*6/uL Hgb 11.1 L (12.0-15.0) g/dL Hct 34.6 L (37.2-46.3) % MPV 9.0 L (9.5-12.2) fL Potassium 3.3 L (3.5-5.1) mmol/L Glucose 161 H (74-99) mg/dL POC Glucose (mg/dL) 133 H (75-99) mg/dL Calcium 8.3 L (8.4-10.2) mg/dL ALT 58 H (4-34) U/L Total Protein 5.7 L (6.3-8.2) g/dL Albumin 3.2 L (3.5-5.0) g/dL 11/20/20 11/20/20 11/20/20 Range/Units 07:32 12:16 17:50 RBC (4.10-5.20) X 10*6/uL Hgb (12.0-15.0) g/dL Hct (37.2-46.3) % MPV (9.5-12.2) fL Potassium (3.5-5.1) mmol/L Glucose (74-99) mg/dL POC Glucose (mg/dL) 154 H 115 H 135 H (75-99) mg/dL Calcium (8.4-10.2) mg/dL ALT (4-34) U/L Total Protein (6.3-8.2) g/dL Albumin (3.5-5.0) g/dL Microbiology - Last 24 Hours (Table) 11/19/20 14:32 Urine Culture - Preliminary Urine,Voided Diabetes panel 11/20/20 Range/Units 06:17 Sodium 140 (137-145) mmol/L Potassium 3.3 L (3.5-5.1) mmol/L Chloride 104 (98-107) mmol/L Carbon Dioxide 26 (22-30) mmol/L BUN 11 (7-17) mg/dL Creatinine 0.60 (0.52-1.04) mg/dL Glucose 161 H (74-99) mg/dL Calcium 8.3 L (8.4-10.2) mg/dL AST 28 (14-36) U/L ALT 58 H (4-34) U/L Alkaline Phosphatase 116 (38-126) U/L Total Protein 5.7 L (6.3-8.2) g/dL Albumin 3.2 L (3.5-5.0) g/dL Calcium panel 11/20/20 Range/Units 06:17 Calcium 8.3 L (8.4-10.2) mg/dL Albumin 3.2 L (3.5-5.0) g/dL Pituitary panel 11/20/20 Range/Units 06:17 Sodium 140 (137-145) mmol/L Potassium 3.3 L (3.5-5.1) mmol/L Chloride 104 (98-107) mmol/L Carbon Dioxide 26 (22-30) mmol/L BUN 11 (7-17) mg/dL Creatinine 0.60 (0.52-1.04) mg/dL Glucose 161 H (74-99) mg/dL Calcium 8.3 L (8.4-10.2) mg/dL Adrenal panel 11/20/20 Range/Units 06:17 Sodium 140 (137-145) mmol/L Potassium 3.3 L (3.5-5.1) mmol/L Chloride 104 (98-107) mmol/L Carbon Dioxide 26 (22-30) mmol/L BUN 11 (7-17) mg/dL Creatinine 0.60 (0.52-1.04) mg/dL Glucose 161 H (74-99) mg/dL Calcium 8.3 L (8.4-10.2) mg/dL Total Bilirubin 0.4 (0.2-1.3) mg/dL AST 28 (14-36) U/L ALT 58 H (4-34) U/L Alkaline Phosphatase 116 (38-126) U/L Total Protein 5.7 L (6.3-8.2) g/dL Albumin 3.2 L (3.5-5.0) g/dL
--- NOTE | 2020-11-20 13:33 | P.PN ---
Subjective Progress Note Date: 11/20/20 Principal diagnosis: Nausea and vomiting This is an 80-year-old female who presented to the emergency department with complaints of nausea and vomiting associated with right upper quadrant pain. Patient states his symptoms have been intermittent for the last 2 months predominantly after eating breakfast she would notice that she would vomit. However over the last 10-14 days symptoms have been progressively getting worse with severe sharp pain in the epigastric and right upper quadrant associated with nausea and vomiting. Patient underwent an ultrasound of the abdomen showed cholelithiasis without any bile duct dilation. She also underwent a HIDA scan yesterday that showed delayed but eventual filling of gallbladder which would argue against acute cholecystitis. She had mild elevation in her LFTs lipase, and WBC on admission with a normal bilirubin. Patient has been afebrile. This morning the patient was seen and examined and states her right upper quadrant p ain has returned and is intense at times. She did have some vomiting this morning that was bilious emesis. Repeat labs today WBC 7 total bilirubin 0.4 AST 28 ALT 58 alk phosphatase 116. Patient was seen by surgery and plan as for laparoscopic cholecystectomy tomorrow Objective - Vital Signs Vital signs: Vital Signs Temp 98.2 F 11/20/20 07:00 Pulse 68 11/20/20 08:00 Resp 16 11/20/20 08:00 BP 156/50 11/20/20 07:00 Pulse Ox 95 11/20/20 07:00 Intake & Output 11/19/20 11/20/20 11/20/20 18:59 06:59 18:59 Intake Total 20 Balance 20 Weight 66.224 kg Intake: Oral 20 Other: Voiding Method Toilet Toilet # Voids 1 - Exam General appearance: The patient is alert, oriented, appears in no acute distress. HET: Head is normocephalic and atraumatic. Conjunctiva pink. Sclera anicteric. Neck: Supple without lymphadenopathy. Abdomen: Soft, right upper quadrant tenderness, nondistended with bowel sounds. No guarding or rigidity. Extremities: Normal skin color and turgor. No pedal edema Skin: No rashes, no jaundice Neurological: No focal deficits. Alert and oriented 3. - Labs CBC & Chem 7: 11/20/20 06:17 11/20/20 06:17 Labs: Abnormal Lab Results - Last 24 Hours (Table) 11/19/20 11/19/20 11/20/20 Range/Units 17:19 20:24 06:17 RBC 3.77 L (4.10-5.20) X 10*6/uL Hgb 11.1 L (12.0-15.0) g/dL Hct 34.6 L (37.2-46.3) % MPV 9.0 L (9.5-12.2) fL Potassium (3.5-5.1) mmol/L Glucose (74-99) mg/dL POC Glucose (mg/dL) 105 H 133 H (75-99) mg/dL Calcium (8.4-10.2) mg/dL ALT (4-34) U/L Total Protein (6.3-8.2) g/dL Albumin (3.5-5.0) g/dL 11/20/20 11/20/20 11/20/20 Range/Units 06:17 07:32 12:16 RBC (4.10-5.20) X 10*6/uL Hgb (12.0-15.0) g/dL Hct (37.2-46.3) % MPV (9.5-12.2) fL Potassium 3.3 L (3.5-5.1) mmol/L Glucose 161 H (74-99) mg/dL POC Glucose (mg/dL) 154 H 115 H (75-99) mg/dL Calcium 8.3 L (8.4-10.2) mg/dL ALT 58 H (4-34) U/L Total Protein 5.7 L (6.3-8.2) g/dL Albumin 3.2 L (3.5-5.0) g/dL Assessment and Plan (1) Nausea and vomiting Narrative/Plan: 80-year-old female with multiple comorbidities who presented to the emergency department with complaints of nausea and vomiting that has been intermittent over the last 2-3 months with worsening symptoms over the last 10-14 days. Patient states since last week Wednesday she's been unable to keep any food down. She vomits after eating or drinking. She's had associated right upper quadrant discomfort as well as some epigastric pain. She does have a history of GERD and takes omeprazole daily. She thought perhaps symptoms were related to her acid reflux. States she had an EGD and colonoscopy greater than 5 years ago which she believed was done at this hospital however there are no reports. Daughter who is at the bedside did state that she thought some of the emesis was dark in color. There is been no reported of bright red blood. As part of her evaluation in the emergency department she had an abdominal ultrasound that did show cholelithiasis. No dilated ducts, CBD within normal limits. HIDA scan was ordered as well by primary medicine showing delayed but eventual filling of gallbladder that would argue against acute cholecystitis. Patient's been af ebrile. On admission she had initial mild elevation in her white count at 13.5 but since then has normalized to 8.3. She had mild elevation in her LFTs on admission with a total bilirubin of 0.9 AST 47 ALT 117 alk phos 183 lipase 311. Repeat labs today show total bilirubin 0.6 AST 31 ALT 80 alk phos 124 lipase 108. Possible etiologies of nausea and vomiting could be related to gallbladder, will consult general surgery. Patient requesting Dr. Crain as she has seen him in the past. Also need to consider possible peptic ulcer disease, gastritis, esophagitis or other etiologies. Current Visit: Yes Status: Acute Code(s): R11.2 - NAUSEA WITH VOMITING, UNSPECIFIED SNOMED Code(s): 13289949 (2) Cholelithiasis Narrative/Plan: Gen. surgeries following patient, plan is for laparoscopic cholecystectomy 11/21/[address] Crain Current Visit: Yes Status: Acute Code(s): K80.20 - CALCULUS OF GALLBLADDER W/O CHOLECYSTITIS W/O OBSTRUCTION SNOMED Code(s): 657136902 Plan: 1. Patient may have clear liquid diet, nothing by mouth after midnight 2. Protonix twice a day for GI prophylaxis 3. Repeat CBC and CMP in the morning 4. Avoid NSAIDs 5. Consult to surgical services Dr. Crain, plan is for laparoscopic cholecystectomy tomorrow 6. Continue antiemetics as needed Thank you for this consultation, we will continue to follow. Dr. Raeann Abdul I agree with the dictator's note, documented as a scribe by Taryn Ford.
[2020-11-20 14:59] VITALS: BMI 28.5
[2020-11-20 17:52] LABS: Glucose,Whole Blood 135 mg/dL (75-99)
[2020-11-20] MEDS: DEXTROSE 5%-0.9% NACL 1,000 ML IV SCH (18:30)
[2020-11-20 20:52] LABS: Glucose,Whole Blood 124 mg/dL (75-99)
[2020-11-21] MEDS: POTASSIUM CHLORIDE 10 MEQ in WATER FOR INJECTION 1 100ML.BAG IVPB SCH ×6 (01:47→07:34)
[2020-11-21] MEDS: DEXTROSE 5%-0.9% NACL 1,000 ML IV SCH ×3 (03:05→20:44)
[2020-11-21 07:21] LABS: Glucose,Whole Blood 144 mg/dL (75-99)
[2020-11-21] MEDS: HEPARIN SODIUM,PORCINE/PF 5,000 UNIT/0.5 ML SYRINGE SQ SCH ×2 (07:34→20:32)
[2020-11-21] MEDS: PANTOPRAZOLE 40 MG/10 ML VIAL IVP SCH (07:34)
[2020-11-21 09:55] LABS: Basophils % (A) 1 %; Eosinophils # (A) 0.2 k/uL (0-0.7); Eosinophils % (A) 4 %; HCT 35.6 % (34.0-46.0); HGB 11.7 gm/dL (11.4-16.0); Lymphocytes # (A) 1.5 k/uL (1.0-4.8); Lymphocytes % (A) 23 %; MCH 30.7 pg (25.0-35.0); MCHC 32.7 g/dL (31.0-37.0); MCV 93.7 fL (80.0-100.0); Mean Platelet Volume 7.2; Monocytes # (A) 0.5 k/uL (0-1.0); Monocytes % (A) 7 %; Neutrophils # (A) 4.1 k/uL (1.3-7.7); Neutrophils % (A) 64 %; Platelet Count 231 k/uL (150-450); RDW 12.7 % (11.5-15.5); WBC 6.3 k/uL (3.8-10.6)
[2020-11-21 10:28] LABS: ALT 53 U/L (4-34); AST 45 U/L (14-36); African American GFR (CKD) >90 (>60 ml/min/1.73 sqM); Albumin 3.1 g/dL (3.5-5.0); Albumin/Globulin Ratio 1.2; Alkaline Phosphatase 116 U/L (38-126); Anion Gap 8 mmol/L; Blood Urea Nitrogen 4 mg/dL (7-17); Calcium 7.7 mg/dL (8.4-10.2); Carbon Dioxide 22 mmol/L (22-30); Chloride 105 mmol/L (98-107); Globulin 2.6 g/dL; Glucose 130 mg/dL (74-99); Non-African American GFR(CKD) >90 (>60 ml/min/1.73 sqM); Sodium 135 mmol/L (137-145); Total Bilirubin 0.5 mg/dL (0.2-1.3); Total Protein 5.7 g/dL (6.3-8.2)
[2020-11-21 11:57] LABS: Glucose,Whole Blood 135 mg/dL (75-99)
--- NOTE | 2020-11-21 13:06 | P.PN ---
Subjective Progress Note Date: 11/21/20 Principal diagnosis: Nausea and vomiting This is an 80-year-old female who presented to the emergency department with complaints of nausea and vomiting associated with right upper quadrant pain. Patient states his symptoms have been intermittent for the last 2 months predominantly after eating breakfast she would notice that she would vomit. However over the last 10-14 days symptoms have been progressively getting worse with severe sharp pain in the epigastric and right upper quadrant associated with nausea and vomiting. Patient underwent an ultrasound of the abdomen showed cholelithiasis without any bile duct dilation. She also underwent a HIDA scan yesterday that showed delayed but eventual filling of gallbladder which would argue against acute cholecystitis. She had mild elevation in her LFTs lipase, and WBC on admission with a normal bilirubin. Patient has been afebrile. Patient is scheduled this afternoon to undergo cholecystectomy. She states overall she has been feeling better through the night and this morning. States her pain is at bay and she denies any nausea or vomiting. Kang remained stable, no elevation in total bilirubin. Objective - Vital Signs Vital signs: Vital Signs Temp 98.3 F 11/21/20 07:00 Pulse 61 11/21/20 08:00 Resp 17 11/21/20 08:00 BP 169/80 11/21/20 07:00 Pulse Ox 98 11/21/20 07:00 Intake & Output 11/20/20 11/21/20 11/21/20 18:59 06:59 18:59 Weight 66.224 kg Other: Voiding Method Toilet Toilet Toilet # Voids 1 3 1 - Exam General appearance: The patient is alert, oriented, appears in no acute distress. HET: Head is normocephalic and atraumatic. Conjunctiva pink. Sclera anicteric. Neck: Supple without lymphadenopathy. Abdomen: Soft, right upper quadrant tenderness, nondistended with bowel sounds. No guarding or rigidity. Extremities: Normal skin color and turgor. No pedal edema Skin: No rashes, no jaundice Neurological: No focal deficits. Alert and oriented 3. - Labs CBC & Chem 7: 11/21/20 08:44 11/21/20 08:44 Labs: Abnormal Lab Results - Last 24 Hours (Table) 11/20/20 11/20/20 11/20/20 Range/Units 12:16 17:50 20:50 Sodium (137-145) mmol/L Potassium (3.5-5.1) mmol/L BUN (7-17) mg/dL Creatinine (0.52-1.04) mg/dL Glucose (74-99) mg/dL POC Glucose (mg/dL) 115 H 135 H 124 H (75-99) mg/dL Calcium (8.4-10.2) mg/dL AST (14-36) U/L ALT (4-34) U/L Total Protein (6.3-8.2) g/dL Albumin (3.5-5.0) g/dL 11/21/20 11/21/20 11/21/20 Range/Units 00:16 07:19 08:44 Sodium 135 L (137-145) mmol/L Potassium 2.8 L (3.5-5.1) mmol/L BUN 4 L (7-17) mg/dL Creatinine 0.46 L (0.52-1.04) mg/dL Glucose 130 H (74-99) mg/dL POC Glucose (mg/dL) 144 H (75-99) mg/dL Calcium 7.7 L (8.4-10.2) mg/dL AST 45 H (14-36) U/L ALT 53 H (4-34) U/L Total Protein 5.7 L (6.3-8.2) g/dL Albumin 3.1 L (3.5-5.0) g/dL Microbiology - Last 24 Hours (Table) 11/19/20 14:32 Urine Culture - Preliminary Urine,Voided Assessment and Plan (1) Nausea and vomiting Narrative/Plan: 80-year-old female with multiple comorbidities who presented to the emergency department with complaints of nausea and vomiting that has been intermittent over the last 2-3 months with worsening symptoms over the last 10-14 days. Patient states since last week Hema she's been unable to keep any food down. She vomits after eating or drinking. She's had associated right upper quadrant discomfort as well as some epigastric pain. She does have a history of GERD and takes omeprazole daily. She thought perhaps symptoms were related to her acid reflux. States she had an EGD and colonoscopy greater than 5 years ago which she believed was done at this hospital however there are no reports. Daughter who is at the bedside did state that she thought some of the emesis was dark in color. There is been no reported of bright red blood. As part of her evaluation in the emergency department she had an abdominal ultrasound that did show cholelithiasis. No dilated ducts, CBD within normal limits. HIDA scan was ordered as well by primary medicine showing delayed but eventual filling of gallbladder that would argue against acute cholecystitis. Patient's been afebrile. On admission she had initial mild elevation in her white count at 13.5 but since then has normalized to 8.3. She had mild elevation in her LFTs on admission with a total bilirubin of 0.9 AST 47 ALT 117 alk phos 183 lipase 311. Repeat labs today show total bilirubin 0.6 AST 31 ALT 80 alk phos 124 lip ase 108. Possible etiologies of nausea and vomiting could be related to gallbladder, will consult general surgery. Patient requesting Dr. Crain as she has seen him in the past. Also need to consider possible peptic ulcer disease, gastritis, esophagitis or other etiologies. Current Visit: Yes Status: Acute Code(s): R11.2 - NAUSEA WITH VOMITING, UNSPECIFIED SNOMED Code(s): 96763687 (2) Cholelithiasis Narrative/Plan: Gen. surgeries following patient, plan is for laparoscopic cholecystectomy 11/21/[address] Crain Current Visit: Yes Status: Acute Code(s): K80.20 - CALCULUS OF GALLBLADDER W/O CHOLECYSTITIS W/O OBSTRUCTION SNOMED Code(s): 455290077 Plan: 1. Diet per recommendations from surgical team 2. Protonix twice a day for GI prophylaxis 3. Repeat CBC and CMP in the morning 4. Avoid NSAIDs 5. Consult to surgical services Dr. Crain, plan is for laparoscopic cholecystectomy tomorrow 6. Continue antiemetics as needed Thank you for this consultation, we will continue to follow. Dr. Raeann Abdul I agree with the dictator's note, documented as a scribe by Taryn RUGGIERO .
[2020-11-21] MEDS: ONDANSETRON 4 MG/2 ML VIAL IVP PRN (14:23)
[2020-11-21 14:56] LABS: Glucose,Whole Blood 147 mg/dL (75-99)
[2020-11-21] MEDS ORDERED: LACTATED RINGERS 1,000 ML IV ONE (15:01)
[2020-11-21] MEDS ORDERED: DEXAMETHASONE SOD PHOSPHATE 4 MG/ML 1 ML VIAL IVP ONE (15:01)
[2020-11-21] MEDS ORDERED: FAMOTIDINE 20 MG/2 ML VIAL IVP ONE (15:02)
[2020-11-21] MEDS ORDERED: PROPOFOL 10 MG/ML 20 ML VIAL IV ONE (15:37)
[2020-11-21] MEDS ORDERED: GLYCOPYRROLATE 0.2 MG/ML 2 ML VIAL ONE (15:37)
[2020-11-21] MEDS ORDERED: LIDOCAINE 1% INJ 10MG/ML (20 ML MDV) ONE (15:37)
[2020-11-21] MEDS ORDERED: SUCCINYLCHOLINE CHLORIDE 100 MG/5 ML SYR IV ONE (15:37)
[2020-11-21] MEDS ORDERED: ROCURONIUM 10 MG/ML (5 ML VIAL) IV ONE (15:37)
[2020-11-21] MEDS ORDERED: NEOSTIGMINE 1 MG/ML 10 ML VIAL ONE (15:37)
[2020-11-21] MEDS ORDERED: fentaNYL (PF) 50 MCG/ML 2 ML AMP ONE (15:37)
[2020-11-21] MEDS ORDERED: BUPIVACAINE (PF) 0.5% 30 ML VIAL SQ ONE ×2 (15:52→16:01)
--- NOTE | 2020-11-21 16:58 | P.OP ---
Date of Procedure: 11/21/20 Procedure(s) Performed: PREOPERATIVE DIAGNOSIS: Acute cholecystitis POSTOPERATIVE DIAGNOSIS: Same PROCEDURE: Diagnostic laparoscopy, biopsy retroperitoneal mass SURGEON: Paras EBL: 5 mL ANESTHESIA: Gen. COMPLICATIONS: None OPERATIVE PROCEDURE: The patient was brought and placed on the operating room table in the supine position. The patient was placed under general anesthesia at that time. The abdomen was prepped and draped in the usual sterile fashion. A small curvilinear supraumbilical incision was made. The fascia was grasped with the Hamzah forceps. The fascia was retracted anteriorly. The Veress needle was advanced into the peritoneal cavity. The saline drop test was normal. Insufflation took place up to 15 mmHg. A 5 mm optical trocar was advanced and the peritoneal cavity. 2 additional 5 mm trochars were placed in the right upper quadrant under direct visualization. A 12 mm trocar was advanced into the epigastric incision site. The patient had an area of induration with masslike formation pushing from the retroperitoneum anteriorly. Patient's antrum and pyloric region and duodenal sweep were pushed superiorly slightly by this masslike area. This was firm to palpation and appeared most consistent with tumor rather than pancreatic inflammation. Some of the gastric colic ligament had some induration that I thought initially may have tumor present. This was partially excised using the LigaSure but by palpation seemed to be more consistent with just fat. 2 separate core biopsies were then taken of the mass with good samples obtained. Pressure was held. No significant bleeding was noted. We did not proceed with cholecystectomy. The 12 mm trocar site was closed using a Charles-Dao 0 Vicryl stitch. The trochars were then removed. The skin at all 4 sites was closed using a 4-0 Monocryl stitch. Skin glue was utilized on the incision sites. At the end of this procedure the sponge and needle counts were correct. DISPOSITION: Stable to the recovery room. Patient's family was informed of the operative findings.
[2020-11-21 17:07] LABS: Glucose,Whole Blood 142 mg/dL (75-99)
[2020-11-21] MEDS ORDERED: hydrALAZINE HCL 20 MG/ML 1 ML VIAL ONE (17:20)
[2020-11-21] MEDS ORDERED: hydrALAZINE HCL 20 MG/ML 1 ML VIAL IVP ONE (17:25)
[2020-11-21 18:18] LABS: Glucose,Whole Blood 173 mg/dL (75-99)
--- NOTE | 2020-11-21 18:43 | P.PN ---
Subjective This is a pleasant 80 years old female with past medical history of Diabetes Mellitus, Fibromyalgia, GERD/Reflux, Hyperlipidemia, Hypertension, Oste oarthritis (OA), hypothyroidism , PARKINSONS, HEART MURMUR, VARICOSE VEINS, BACK PAIN- RECEIVES INJECTIONS FROM DR STERLING 2 years ago., DIET CONTROLLED DIABETES, HX OF ANEMIA, LOW FUNCTIONING KIDNEYS (DR COTO)., PAIN BACK- USING CANE OR WALKER. Falls. She is a patient of Dr. Ronquillo. She follows up also with Dr. Fitzpatrick and neurologist for her Parkinson disease and orthopedic for her arthritis Because of epigastric abdominal pain for the last 7-10 days, increased by eating and drinking that patient could not have food or medication over the last 2-3 days. Usually her pain is 0/10 while she is lying down but it comes up and increased when she tries to sit up. Last 2-3 days she started having vomiting. Also 3 days ago she had loose diarrhea dark-colored but that was stopped over the last 2 days. Patient was not eating and drinking well She denies chest pain or dyspnea. She denies dysuria or change in frequency or urgency with her urination but just suprapubic tenderness No smoking, no alcohol or illicit drugs per patient Vitas looks stable Showing mild leukocytosis of 13.5 K, C and INR, BMP are unremarkable. Creatinine normal 0.7. Liver enzymes slightly elevated with AST 47 and ALT 117. Total bilirubin is normal 0.9. Lipase is slightly elevated at 311. Urine analysis is suspicious for infection. Matos virus nondetected. Abdominal ultrasound showing normal right kidney. There appeared to be some gallstones. No dilated ducts In the emergency room she was receiving ceftriaxone, Levaquin, normal saline at 1 30 mL/h 11/20/2020 Patient is still complaining of from nausea vomiting, or drink abdominal pain and tenderness. No bowel movement. No significant suprapubic tenderness today after starting Rocephin yesterday. Calcitonin came back negative at 0.06. Flagyl was discontinued. Liver enzymes trending down are not elevated. He remains on ceftriaxone for UTI pending urine culture on normal saline at 75 mL/h. Surgical team were consulted for possible cholecystitis although HIDA scans showed delayed imaging but less likely acute cholecystitis per reports. GI team on the case 11/21/2020 Patient underwent laparoscopic cholecystectomy today with postop diagnosis of acute cholecystitis. During the laparoscopy and retro-peritoneal mass is identified between the stomach and the pancreas were biopsy were taken. Also CT of the pancreas ordered and CA antigen 9-19 is requested by surgery team Urine culture is negative and ceftriaxone has been stopped Patient remains nothing by mouth with gentle hydration Objective - Vital Signs Vital signs: Vital Signs Temp 97.3 F L 11/21/20 14:34 Pulse 73 11/21/20 14:34 Resp 16 11/21/20 14:34 BP 176/83 11/21/20 14:34 Pulse Ox 96 11/21/20 14:34 Intake & Output 11/20/20 11/21/20 11/21/20 18:59 06:59 18:59 Output Total 500 Balance -500 Weight 66.224 kg Output: Urine 500 Other: Voiding Method Toilet Toilet Toilet # Voids 1 3 1 - Exam GENERAL: The patient is alert and oriented x3, not in any acute distress. Well developed, well nourished. HEENT: Pupils are round and equally reacting to light. EOMI. No scleral icterus. No conjunctival pallor. Normocephalic, atraumatic. No pharyngeal erythema. No thyromegaly. CARDIOVASCULAR: S1 and S2 present. No murmurs, rubs, or gallops. PULMONARY: Chest is clear to auscultation, no wheezing or crackles. -ABDOMEN: Soft, RUQ tenderness, no rebound tenderness or guarding, nondistended, normoactive bowel sounds. No palpable organomegaly. MUSCULOSKELETAL: No joint swelling or deformity. EXTREMITIES: No cyanosis, clubbing, or pedal edema. NEUROLOGICAL: Gross neurological examination did not reveal any focal deficits. SKIN: No rashes. no petechiae. - Labs CBC & Chem 7: 11/21/20 08:44 11/21/20 08:44 Labs: Abnormal Lab Results - Last 24 Hours (Table) 11/20/20 11/20/20 11/21/20 Range/Units 17:50 20:50 00:16 Sodium (137-145) mmol/L Potassium 2.8 L (3.5-5.1) mmol/L BUN (7-17) mg/dL Creatinine (0.52-1.04) mg/dL Glucose (74-99) mg/dL POC Glucose (mg/dL) 135 H 124 H (75-99) mg/dL Calcium (8.4-10.2) mg/dL AST (14-36) U/L ALT (4-34) U/L Total Protein (6.3-8.2) g/dL Albumin (3.5-5.0) g/dL 11/21/20 11/21/20 11/21/20 Range/Units 07:19 08:44 11:55 Sodium 135 L (137-145) mmol/L Potassium (3.5-5.1) mmol/L BUN 4 L (7-17) mg/dL Creatinine 0.46 L (0.52-1.04) mg/dL Glucose 130 H (74-99) mg/dL POC Glucose (mg/dL) 144 H 135 H (75-99) mg/dL Calcium 7.7 L (8.4-10.2) mg/dL AST 45 H (14-36) U/L ALT 53 H (4-34) U/L Total Protein 5.7 L (6.3-8.2) g/dL Albumin 3.1 L (3.5-5.0) g/dL 11/21/20 Range/Units 14:52 Sodium (137-145) mmol/L Potassium (3.5-5.1) mmol/L BUN (7-17) mg/dL Creatinine (0.52-1.04) mg/dL Glucose (74-99) mg/dL POC Glucose (mg/dL) 147 H (75-99) mg/dL Calcium (8.4-10.2) mg/dL AST (14-36) U/L ALT (4-34) U/L Total Protein (6.3-8.2) g/dL Albumin (3.5-5.0) g/dL Microbiology - Last 24 Hours (Table) 11/19/20 14:32 Urine Culture - Preliminary Urine,Voided Assessment and Plan Assessment: acute cholecystitis, status post laparoscopic cholecystectomy on 12/01 Retroperitoneal mass Acute urinary tract infection , resolved. Possible Acute gastroenteritis. Improved Diabetes mellitus Fibromyalgia History of GERD Tension Hyperlipidemia Osteoarthritis Hypothyroidism Parkinson disease Chronic back pain Chronic kidney disease and she follows up with Dr. Coto History of falls Plan: This is a pleasant 80 years old female who presents with acute cholecystitis status post laparoscopic cholecystectomy. Also patient had retroperitoneal mass pending biopsy. Follow-up CA antigen 9-[address] of the pancreas discontinue ceftriaxone Continue gentle hydration Surgery team consult gi consult Bowel rest, IV fluid and pain management Labs and medication were reviewed.. Continue same treatment. Continue with symptomatic treatment. Resume home medication. Monitor lytes and vitals. DVT and GI prophylaxis. Further recommendations depends on the clinical course of the patient DVT prophylaxis: Subcutaneous heparin GI Prophylaxis: Ppu PT/OT: Home Possible discharge in 24-48 or significant improvement
[2020-11-21] MEDS ORDERED: diphenhydrAMINE 50 MG/ML 1 ML VIAL IVP ONE (18:45)
[2020-11-21] MEDS ORDERED: methylPREDNISolone SOD SUCCI 125 MG/2 ML VIAL IV ONE ×2 (18:45)
[2020-11-21 20:43] LABS: Glucose,Whole Blood 142 mg/dL (75-99)
[2020-11-22 07:33] LABS: Glucose,Whole Blood 168 mg/dL (75-99)
[2020-11-22] MEDS: HEPARIN SODIUM,PORCINE/PF 5,000 UNIT/0.5 ML SYRINGE SQ SCH ×2 (07:53→20:52)
[2020-11-22] MEDS: PANTOPRAZOLE 40 MG/10 ML VIAL IVP SCH (07:53)
[2020-11-22] MEDS: DEXTROSE 5%-0.9% NACL 1,000 ML IV SCH (07:59)
[2020-11-22 12:05] LABS: Glucose,Whole Blood 208 mg/dL (75-99)
[2020-11-22] MEDS ORDERED: INSULIN ASPART (NovoLOG) 100 UNIT/ML VIAL SQ SCH (12:30)
--- NOTE | 2020-11-22 13:28 | CT ---
EXAMINATION TYPE: CT pancreas biphase DATE OF EXAM: 11/22/2020 COMPARISON: Ultrasound 11/18/2020 HISTORY: 80 year-old female with vomiting, retroperitoneal mass on laparoscopy, pain TECHNIQUE: Contiguous axial scanning of the abdomen following administration of 100 ml Isovue 300 IV contrast. Arterial and portal venous phase imaging is performed. Coronal/sagittal reconstructions pe rformed. CT DLP: 820.3 mGycm Automated exposure control for dose reduction was used. FINDINGS: Heart normal size without pericardial effusion. Small pleural effusions with adjacent atele ctasis. An NG tube is present decompressing the stomach. Mild scattered free intraperitoneal air is present from recent laparoscopically. Gallbladder mildly hydropic at 4.4 cm wide. Portal venous system appears patent. There is mild dilata tion of the bile duct at 9 mm. There is poorly defined circumferential thickening at the gastric pylorus and proximal duodenum, axia l image 33 series 5 and possible enhancing 3.5 x 1.6 cm oval mass bridging the region between the sec ond portion the duodenum and lower pancreatic head, axial 35 series 5. Mild generalized anasarca change. 4.4 cm posterior left renal cyst. Spleen within normal limits. Mild atrophy of the body and tail the pancreas. No evident upper abdomin al lymphadenopathy seen. No dilated small bowel or free fluid seen. Bones: Degenerated disc with a scoliosis of the lumbar spine. IMPRESSION: 1. POORLY DEFINED SOFT TISSUE AT THE DISTAL STOMACH AND PROXIMAL DUODENUM AND POSSIBLE MASS NEAR THE PANCREATIC HEAD/HELGA HEPATIC AND SECOND PORTION OF THE DUODENUM REGION. ESTIMATED SIZE OF 3.5 CM. A WAITING BIOPSY RESULTS. 2. MILDLY DILATED BILE DUCT AT 9 MM. GALLBLADDER MILDLY HYDROPIC AT 4.4 CM WIDE POSSIBLY DUE TO FASTI NG STATE. THERE MAY BE A MILD RELATIVE OBSTRUCTION AT THE DISTAL BILE DUCT. 3. SCATTERED MILD FREE AIR COMPATIBLE WITH RECENT LAPAROSCOPY. 4. MILD ANASARCA AND SMALL PLEURAL EFFUSIONS. CORRELATE FOR THIRD SPACING/MILD FLUID OVERLOAD STATE.
[2020-11-22] MEDS ORDERED: LIDOCAINE 1% INJ 10MG/ML (20 ML MDV) SQ ONE (13:41)
--- NOTE | 2020-11-22 14:28 | P.PN ---
Subjective This is a pleasant 80 years old female with past medical history of Diabetes Mellitus, Fibromyalgia, GERD/Reflux, Hyperlipidemia, Hypertension, Oste oarthritis (OA), hypothyroidism , PARKINSONS, HEART MURMUR, VARICOSE VEINS, BACK PAIN- RECEIVES INJECTIONS FROM DR STERLING 2 years ago., DIET CONTROLLED DIABETES, HX OF ANEMIA, LOW FUNCTIONING KIDNEYS (DR COTO)., PAIN BACK- USING CANE OR WALKER. Falls. She is a patient of Dr. Ronquillo. She follows up also with Dr. Fitzpatrick and neurologist for her Parkinson disease and orthopedic for her arthritis Because of epigastric abdominal pain for the last 7-10 days, increased by eating and drinking that patient could not have food or medication over the last 2-3 days. Usually her pain is 0/10 while she is lying down but it comes up and increased when she tries to sit up. Last 2-3 days she started having vomiting. Also 3 days ago she had loose diarrhea dark-colored but that was stopped over the last 2 days. Patient was not eating and drinking well She denies chest pain or dyspnea. She denies dysuria or change in frequency or urgency with her urination but just suprapubic tenderness No smoking, no alcohol or illicit drugs per patient Vitas looks stable Showing mild leukocytosis of 13.5 K, C and INR, BMP are unremarkable. Creatinine normal 0.7. Liver enzymes slightly elevated with AST 47 and ALT 117. Total bilirubin is normal 0.9. Lipase is slightly elevated at 311. Urine analysis is suspicious for infection. Matos virus nondetected. Abdominal ultrasound showing normal right kidney. There appeared to be some gallstones. No dilated ducts In the emergency room she was receiving ceftriaxone, Levaquin, normal saline at 1 30 mL/h 11/20/2020 Patient is still complaining of from nausea vomiting, or drink abdominal pain and tenderness. No bowel movement. No significant suprapubic tenderness today after starting Rocephin yesterday. Calcitonin came back negative at 0.06. Flagyl was discontinued. Liver enzymes trending down are not elevated. He remains on ceftriaxone for UTI pending urine culture on normal saline at 75 mL/h. Surgical team were consulted for possible cholecystitis although HIDA scans showed delayed imaging but less likely acute cholecystitis per reports. GI team on the case 11/21/2020 Patient underwent laparoscopic cholecystectomy today with postop diagnosis of acute cholecystitis. During the laparoscopy and retro-peritoneal mass is identified between the stomach and the pancreas were biopsy were taken. Also CT of the pancreas ordered and CA antigen 9-19 is requested by surgery team Urine culture is negative and ceftriaxone has been stopped Patient remains nothing by mouth with gentle hydration 11/22/2020 Patient is status post laparoscopic procedure yesterday however gallbladder was not taken out, as stated retroperitoneal mass could be related to pancreatic head is found, pancreatic CAT scan showed 3.5 cm mass. Biopsy from the mass done yesterday still pending as well as CA 9-19 pending. Patient is awake feels more comfortable after NG tube was placed with dark excretion in the back most likely bile. This abdominal pain. No bowel movement or passing gases. Blood pressure slightly on the high side, repeat labs tomorrow. We'll place a PICC line and start TPN as patient looks frail and did not have good nutrition over the last few days. Objective - Vital Signs Vital signs: Vital Signs Temp 98.6 F 11/22/20 08:00 Pulse 73 11/22/20 08:00 Resp 16 11/22/20 08:00 BP 182/73 11/22/20 08:00 Pulse Ox 96 11/22/20 08:00 Intake & Output 11/21/20 11/22/20 11/22/20 18:59 06:59 18:59 Intake Total 750 Output Total 580 510 Balance 170 -510 Intake: IV 750 Output: Gastric Drainage 75 110 Urine 500 400 Estimated Blood Loss 5 Other: Voiding Method Toilet Bedpan Bedpan # Voids 1 2 - Exam GENERAL: The patient is alert and oriented x3, not in any acute distress. Well developed, well nourished. HEENT: Pupils are round and equally reacting to light. EOMI. No scleral icterus. No conjunctival pallor. Normocephalic, atraumatic. No pharyngeal erythema. No thyromegaly. CARDIOVASCULAR: S1 and S2 present. No murmurs, rubs, or gallops. PULMONARY: Chest is clear to auscultation, no wheezing or crackles. -ABDOMEN: Soft, RUQ tenderness, no rebound tenderness or guarding, nondistended, normoactive bowel sounds. No palpable organomegaly. MUSCULOSKELETAL: No joint swelling or deformity. EXTREMITIES: No cyanosis, clubbing, or pedal edema. NEUROLOGICAL: Gross neurological examination did not reveal any focal deficits. SKIN: No rashes. no petechiae. - Labs CBC & Chem 7: 11/21/20 08:44 11/21/20 08:44 Labs: Abnormal Lab Results - Last 24 Hours (Table) 11/21/20 11/21/20 11/21/20 Range/Units 14:52 17:06 18:17 POC Glucose (mg/dL) 147 H 142 H 173 H (75-99) mg/dL 11/21/20 11/22/20 11/22/20 Range/Units 20:42 07:32 12:03 POC Glucose (mg/dL) 142 H 168 H 208 H (75-99) mg/dL Microbiology - Last 24 Hours (Table) 11/19/20 14:32 Urine Culture - Final Urine,Voided Assessment and Plan Assessment: Retroperitoneal mass, could be related to pancreatic head. 3.5 cm in size. Pending biopsy [id number] calorie protein malnutrition Acute urinary tract infection , resolved. Possible Acute gastroenteritis. Improved Diabetes mellitus Fibromyalgia History of GERD Hyperlipidemia Osteoarthritis Hypothyroidism Parkinson disease Chronic back pain Chronic kidney disease and she follows up with Dr. Coto History of falls Plan: This is a pleasant 80 years old female who presents with acute cholecystitis status post laparoscopic cholecystectomy. Also patient had retroperitoneal mass pending biopsy. Follow-up CA antigen 9-19 PICC line and start TPN Continue gentle hydration Surgery team consult gi consult Bowel rest, IV fluid and pain management Labs and medication were reviewed.. Continue same treatment. Continue with symptomatic treatment. Resume home medication. Monitor lytes and vitals. DVT and GI prophylaxis. Further recommendations depends on the clinical course of the patient DVT prophylaxis: Subcutaneous heparin GI Prophylaxis: Ppu PT/OT: Home
--- NOTE | 2020-11-22 14:59 | P.PN ---
Subjective Progress Note Date: 11/22/20 Principal diagnosis: Nausea and vomiting This is an 80-year-old female who presented to the emergency department with complaints of nausea and vomiting associated with right upper quadrant pain. Patient states his symptoms have been intermittent for the last 2 months predominantly after eating breakfast she would notice that she would vomit. However over the last 10-14 days symptoms have been progressively getting worse with severe sharp pain in the epigastric and right upper quadrant associated with nausea and vomiting. Patient underwent an ultrasound of the abdomen showed cholelithiasis without any bile duct dilation. She also underwent a HIDA scan that showed delayed but eventual filling of gallbladder which would argue against acute cholecystitis. She had mild elevation in her LFTs lipase, and WBC on admission with a normal bilirubin. Yesterday the patient is supposed to undergo laparoscopic cholecystectomy however this was deferred as there was a masslike formation pushing from the retroperitoneum anteriorly. Patient's antrum and pyloric region and whatwe were pushed superiorly slightly by this masslike area. Biopsies were obtained. also biopsy of a retroperitoneal mass. The patient reports yesterday prior to going to surgery she had a large amount of emesis, she states the nurse stated it looked like Styrofoam. She currently has a NG tube with approximately 300 mils of bilious fluid. She denies any abdominal pain other than surgical discomfort she is nothing by mouth currently and denies any nausea or vomiting. No BM and no flatus. She's been afebrile. CT of the pancreas showed a poorly defined soft tissue at the distal stomach and proximal duodenum and possible mass near the pancreatic head/narcisa hepatis hepatic and second portion of the duodenum region. Estimated size of 3.5 cm. Awaiting biopsy results. Mildly dilated bile duct at 9 mm. Gallbladder mildly hydropic and 4.4 cm wide possibly due to fasting state. There may be a mild relative obstruction at the distal bile duct. Scattered mild free air compatible with recent laparoscopically. Mild anasarca and small pleural effusion. Objective - Vital Signs Vital signs: Vital Signs Temp 98.6 F 11/22/20 08:00 Pulse 73 11/22/20 08:00 Resp 16 11/22/20 08:00 BP 182/73 11/22/20 08:00 Pulse Ox 96 11/22/20 08:00 Intake & Output 11/21/20 11/22/20 11/22/20 18:59 06:59 18:59 Intake Total 750 Output Total 580 510 Balance 170 -510 Intake: IV 750 Output: Gastric Drainage 75 110 Urine 500 400 Estimated Blood Loss 5 Other: Voiding Method Toilet Bedpan Bedpan # Voids 1 2 - Exam General appearance: The patient is alert, oriented, appears in no acute distress. HET: Head is normocephalic and atraumatic. Conjunctiva pink. Sclera anicteric. NG tube in place with good suction. Neck: Supple without lymphadenopathy. Abdomen: Soft, nontender, nondistended with bowel sounds. No guarding or rigidity. Extremities: Normal skin color and turgor. No pedal edema Skin: No rashes, no jaundice Neurological: No focal deficits. Alert and oriented 3. - Labs CBC & Chem 7: 11/21/20 08:44 11/22/20 05:01 Labs: Abnormal Lab Results - Last 24 Hours (Table) 11/21/20 11/21/20 11/21/20 Range/Units 08:44 11:55 14:52 Sodium 135 L (137-145) mmol/L BUN 4 L (7-17) mg/dL Creatinine 0.46 L (0.52-1.04) mg/dL Glucose 130 H (74-99) mg/dL POC Glucose (mg/dL) 135 H 147 H (75-99) mg/dL Calcium 7.7 L (8.4-10.2) mg/dL AST 45 H (14-36) U/L ALT 53 H (4-34) U/L Total Protein 5.7 L (6.3-8.2) g/dL Albumin 3.1 L (3.5-5.0) g/dL 11/21/20 11/21/20 11/21/20 Range/Units 17:06 18:17 20:42 Sodium (137-145) mmol/L BUN (7-17) mg/dL Creatinine (0.52-1.04) mg/dL Glucose (74-99) mg/dL POC Glucose (mg/dL) 142 H 173 H 142 H (75-99) mg/dL Calcium (8.4-10.2) mg/dL AST (14-36) U/L ALT (4-34) U/L Total Protein (6.3-8.2) g/dL Albumin (3.5-5.0) g/dL 11/22/20 Range/Units 07:32 Sodium (137-145) mmol/L BUN (7-17) mg/dL Creatinine (0.52-1.04) mg/dL Glucose (74-99) mg/dL POC Glucose (mg/dL) 168 H (75-99) mg/dL Calcium (8.4-10.2) mg/dL AST (14-36) U/L ALT (4-34) U/L Total Protein (6.3-8.2) g/dL Albumin (3.5-5.0) g/dL Microbiology - Last 24 Hours (Table) 11/19/20 14:32 Urine Culture - Final Urine,Voided Assessment and Plan (1) Nausea and vomiting Narrative/Plan: 80-year-old female with multiple comorbidities who presented to the emergency department with complaints of nausea and vomiting that has been intermittent over the last 2-3 months with worsening symptoms over the last 10-14 days. Patient states since last week Wednesday she's been unable to keep any food down. She vomits after eating or drinking. She's had associated right upper quadrant discomfort as well as some epigastric pain. She does have a history of GERD and takes omeprazole daily. She thought perhaps symptoms were related to her acid reflux. States she had an EGD and colonoscopy greater than 5 years ago which she believed was done at this hospital however there are no reports. Daughter who is at the bedside did state that she thought some of the emesis was dark in color. There is been no reported of bright red blood. As part of her evaluation in the emergency department she had an abdominal ultrasound that did show cholelithiasis. No dilated ducts, CBD within normal limits. HIDA scan was ordered as well by primary medicine showing delayed but eventual filling of gallbladder that would argue against acute cholecystitis. Patient's been afebr ile. On admission she had initial mild elevation in her white count at 13.5 but since then has normalized to 8.3. She had mild elevation in her LFTs on admission with a total bilirubin of 0.9 AST 47 ALT 117 alk phos 183 lipase 311. Repeat labs today show total bilirubin 0.6 AST 31 ALT 80 alk phos 124 lipase 108. Possible etiologies of nausea and vomiting could be related to gallbladder, will consult general surgery. Patient requesting Dr. Crain as she has seen him in the past. Also need to consider possible peptic ulcer disease, gastritis, esophagitis or other etiologies. Current Visit: Yes Status: Acute Code(s): R11.2 - NAUSEA WITH VOMITING, UNSPECIFIED SNOMED Code(s): 18627471 (2) Cholelithiasis Narrative/Plan: Gen. surgeries following patient, plan is for laparoscopic cholecystectomy 11/21/[address] Crain Current Visit: Yes Status: Acute Code(s): K80.20 - CALCULUS OF GALLBLADDER W/O CHOLECYSTITIS W/O OBSTRUCTION SNOMED Code(s): 407259579 (3) Pancreatic mass Current Visit: Yes Status: Acute Code(s): K86.89 - OTHER SPECIFIED DISEASES OF PANCREAS SNOMED Code(s): 199253529 Plan: 1. Nothing by mouth 2. Protonix twice a day for GI prophylaxis 3. Repeat CBC and CMP in the morning 4. Avoid NSAIDs 5. Surgical services on consult, cholecystectomy deferred 6. CA-19-9 ordered per surgery 7. Pancreas CT reviewed 8. Await biopsy results, recommend consult to oncology Thank you for this consultation, gastroenterology will sign off at this time, defer further management per general surgery and oncology Thank you for allowing us to participate in the care of the patient, the GI service will sign off, gastroenterology will not be available at the hospital t his weekend. If further evaluation by gastroenterology is required the patient will need transfer as per the primary team's discretion. Dr. Raeann Abdul I agree with the dictator's note, documented as a scribe by Taryn Ford.
[2020-11-22 15:07] LABS: African American GFR (CKD) >90 (>60 ml/min/1.73 sqM); Anion Gap 7 mmol/L; Blood Urea Nitrogen 5 mg/dL (7-17); Calcium 7.5 mg/dL (8.4-10.2); Carbon Dioxide 22 mmol/L (22-30); Chloride 105 mmol/L (98-107); Glucose 181 mg/dL (74-99); Magnesium 1.6 mg/dL (1.6-2.3); Non-African American GFR(CKD) >90 (>60 ml/min/1.73 sqM); Phosphorus 2.9 mg/dL (2.5-4.5); Potassium 3.3 mmol/L (3.5-5.1); Sodium 134 mmol/L (137-145)
--- NOTE | 2020-11-22 15:58 | IR ---
EXAMINATION TYPE: IR cvc insert >=5 years DATE OF EXAM: 11/22/2020 COMPARISON: NONE CLINICAL HISTORY: Retroperitoneal mass Needs long-term intravenous access for therapy. PROCEDURE: Hand hygiene obtained with soap and water and alcohol-based hand rub. After informed consent, the skin overlying the left brachial vein was localized with ultrasound and n oted to be compressible and patent. An ultrasound image was obtained and submitted on the patient's chart. The overlying skin was prepped and draped and Lidocaine was used for local anesthesia. A ski n lee ann was made with a scalpel. Access was gained to the vein under ultrasound guidance with a 21 ga uge needle and a 0.018 inch wire was advanced. Access site was dilated with Peel-Away sheath and cat heter tailored to the appropriate length and advanced such that the distal tip is at the cavoatrial j unction. Spot image was obtained verifying placement. Catheter was fixed to the skin and a sterile dressing was placed following hemostasis. Catheter was aspirated and flushed with saline. Patient w as discharged in stable condition without complication.Maximal barrier technique is utilized. Ultras ound image is documented on the chart. Ultrasound used with sterile technique. Fluoro time and fluoroscopic images submitted to document procedure: 13 intraoperative C-arm images d ocument the procedure, 0.2 minutes fluoroscopy time IMPRESSION: STATUS POST ULTRASOUND AND FLUOROSCOPIC GUIDED PICC LINE PLACEMENT, READY FOR USE. THIS PROCEDURE WAS PERFORMED BY THE UNDERSIGNED.
[2020-11-22] MEDS ORDERED: MVI, ADULT NO.4 WITH VIT K 10 ML, TRACE (CONC-1ML/DOSE) 1 ML in AMINO ACID 5%-D15W+LYTE... IV ONE ×3 (16:00)
[2020-11-22] MEDS: FAT EMULSION 20% 250 ML IV SCH (16:47)
[2020-11-22 17:25] LABS: Glucose,Whole Blood 134 mg/dL (75-99)
[2020-11-22] MEDS: INSULIN ASPART (NovoLOG) 100 UNIT/ML VIAL SQ SCH (18:09)
--- NOTE | 2020-11-22 18:58 | P.PN ---
Subjective Progress Note Date: 11/22/20 Principal diagnosis: Retroperitoneal mass Patient seen twice today. Family present at bedside. CAT scan was obtained. CAT scan was reviewed with radiology. There does appear to be induration along the second portion of the duodenum. A large pancreatic mass not visualized ho wever. Labs reviewed. Patient developed bleeding from the most lateral right upper quadrant 5 mm trocar site after she came back from CAT scan. Pressure was held with persistent oozing from that site. Denies pain. NG tube with moderate bilious output. Objective - Vital Signs Vital signs: Vital Signs Temp 98.7 F 11/22/20 14:00 Pulse 80 11/22/20 14:00 Resp 16 11/22/20 14:00 BP 158/84 11/22/20 14:00 Pulse Ox 98 11/22/20 14:00 Intake & Output 11/21/20 11/22/20 11/22/20 18:59 06:59 18:59 Intake Total 750 Output Total 580 510 Balance 170 -510 Weight 66.224 kg Intake: IV 750 Output: Gastric Drainage 75 110 Urine 500 400 Estimated Blood Loss 5 Other: Voiding Method Toilet Bedpan Bedpan # Voids 1 2 1 - Exam Abdomen: Soft, nondistended, mild incisional tenderness, bleeding from the most lateral 5 mm right upper quadrant trocar site, bleeding controlled after localizing with 1% lidocaine and placing 2 separate [id number] 3-0 silk sutures. No further bleeding seen. Sterile dressing applied. - Labs CBC & Chem 7: 11/21/20 08:44 11/22/20 05:01 Labs: Abnormal Lab Results - Last 24 Hours (Table) 11/21/20 11/22/20 11/22/20 Range/Units 20:42 05:01 07:32 Sodium 134 L (137-145) mmol/L Potassium 3.3 L (3.5-5.1) mmol/L BUN 5 L (7-17) mg/dL Creatinine 0.49 L (0.52-1.04) mg/dL Glucose 181 H (74-99) mg/dL POC Glucose (mg/dL) 142 H 168 H (75-99) mg/dL Calcium 7.5 L (8.4-10.2) mg/dL 11/22/20 11/22/20 Range/Units 12:03 17:23 Sodium (137-145) mmol/L Potassium (3.5-5.1) mmol/L BUN (7-17) mg/dL Creatinine (0.52-1.04) mg/dL Glucose (74-99) mg/dL POC Glucose (mg/dL) 208 H 134 H (75-99) mg/dL Calcium (8.4-10.2) mg/dL Microbiology - Last 24 Hours (Table) 11/19/20 14:32 Urine Culture - Final Urine,Voided Assessment and Plan (1) Retroperitoneal mass Narrative/Plan: Patient with bleeding from the incision site. This was controlled at the bedside without difficulty. CAT scan findings reviewed in detail with the patient's family. Agree with plans for PICC line and TPN. Await final pathology results. Will order upper GI through nasogastric tube for Wednesday to determine whether in fact duodenal obstruction is present. Suspect obstruction just beyond ampulla Vater. Following that may require transfer to tertiary care center for evaluation of mass and possible stent placement versus definitive surgical resection. Current Visit: Yes Status: Acute Code(s): R19.00 - INTRA-ABD AND PELVIC SWELLING, MASS AND LUMP, UNSP SITE SNOMED Code(s): 69413229
[2020-11-22] MEDS: MAGNESIUM SULFATE-D5W PMX 1 GM in DEXTROSE/WATER 1 100ML.BAG IVPB SCH ×2 (19:42→20:52)
[2020-11-22] MEDS: POTASSIUM CHLORIDE 20 MEQ in WATER FOR INJECTION 1 100ML.BAG IVPB SCH ×2 (19:42→20:52)
[2020-11-22 20:24] LABS: Glucose,Whole Blood 176 mg/dL (75-99)
[2020-11-22] MEDS: CARBIDOPA-LEVODOPA 25-100 MG 1 EACH TAB PO SCH (20:52)
[2020-11-22] MEDS: PRIMIDONE 50 MG TAB PO SCH (20:52)
[2020-11-23 00:12] LABS: Glucose,Whole Blood 166 mg/dL (75-99)
[2020-11-23] MEDS: INSULIN ASPART (NovoLOG) 100 UNIT/ML VIAL SQ SCH ×4 (00:32→17:22)
[2020-11-23 05:30] LABS: Glucose,Whole Blood 179 mg/dL (75-99)
[2020-11-23] MEDS: DEXTROSE 5%-0.9% NACL 1,000 ML IV SCH ×2 (06:00→20:41)
[2020-11-23 06:59] LABS: Magnesium 2.2 mg/dL (1.6-2.3); Phosphorus 2.7 mg/dL (2.5-4.5)
[2020-11-23 07:00] LABS: Ionized Calcium 4.7 mg/dL (4.5-5.3)
[2020-11-23 07:05] LABS: ALT 48 U/L (4-34); AST 50 U/L (14-36); African American GFR (CKD) >90 (>60 ml/min/1.73 sqM); Albumin 3.1 g/dL (3.5-5.0); Albumin/Globulin Ratio 1.2; Alkaline Phosphatase 113 U/L (38-126); Anion Gap 7 mmol/L; Blood Urea Nitrogen 9 mg/dL (7-17); Calcium 8.3 mg/dL (8.4-10.2); Carbon Dioxide 26 mmol/L (22-30); Chloride 105 mmol/L (98-107); Globulin 2.5 g/dL; Glucose 187 mg/dL (74-99); Non-African American GFR(CKD) 89 (>60 ml/min/1.73 sqM); Potassium 3.3 mmol/L (3.5-5.1); Sodium 138 mmol/L (137-145); Total Bilirubin 0.4 mg/dL (0.2-1.3); Total Protein 5.6 g/dL (6.3-8.2)
[2020-11-23] MEDS: HEPARIN SODIUM,PORCINE/PF 5,000 UNIT/0.5 ML SYRINGE SQ SCH ×2 (07:58→20:40)
[2020-11-23] MEDS: PANTOPRAZOLE 40 MG/10 ML VIAL IVP SCH (07:58)
[2020-11-23] MEDS: CARBIDOPA-LEVODOPA 25-100 MG 1 EACH TAB PO SCH ×4 (07:59→20:40)
[2020-11-23] MEDS: PRIMIDONE 50 MG TAB PO SCH ×3 (07:59→20:40)
[2020-11-23 09:05] LABS: Basophils # (A) 0.06 X 10*3/uL (0.00-0.10); Eosinophils # (A) 0.25 X 10*3/uL (0.04-0.35); HCT 35.9 % (37.2-46.3); HGB 11.8 g/dL (12.0-15.0); Lymphocytes # (A) 1.81 X 10*3/uL (0.90-5.00); Lymphocytes % (A) 29.1 %; MCH 29.7 pg (27.0-32.0); MCHC 32.9 g/dL (32.0-37.0); MCV 90.4 fL (80.0-97.0); Mean Platelet Volume 9.1 fL (9.5-12.2); Monocytes # (A) 0.55 X 10*3/uL (0.20-1.00); Monocytes % (A) 8.9 %; Neutrophils % (A) 56.4 %; Platelet Count 261 X 10*3/uL (140-440); RBC 3.97 X 10*6/uL (4.10-5.20); RDW 12.9 % (11.5-14.5); WBC 6.21 X 10*3/uL (4.50-10.00)
[2020-11-23] MEDS ORDERED: cloNIDine 0.2 MG/24HR PATCH TRANSDERM SCH (09:30)
--- NOTE | 2020-11-23 11:21 | P.PN ---
Subjective Progress Note Date: 11/23/20 Principal diagnosis: Retroperitoneal mass Patient doing well today. Nasogastric tube in place with bilious output. No pain. No further bleeding from incision site. CA-19-9 is 70 Objective - Vital Signs Vital signs: Vital Signs Temp 97.6 F 11/23/20 07:50 Pulse 89 11/23/20 07:50 Resp 14 11/23/20 07:50 BP 180/51 11/23/20 07:50 Pulse Ox 99 11/23/20 07:50 Intake & Output 11/22/20 11/23/20 11/23/20 18:59 06:59 18:59 Output Total 1000 200 Balance -1000 -200 Weight 66.224 kg Output: Gastric Drainage 1000 Urine 200 Stool 0 Other: Voiding Method Bedpan Bedpan # Voids 1 2 - Exam Abdomen: Soft, nondistended, mild incisional tenderness, no bleeding - Labs CBC & Chem 7: 11/23/20 06:16 11/23/20 06:16 Labs: Abnormal Lab Results - Last 24 Hours (Table) 11/22/20 11/22/20 11/22/20 Range/Units 05:01 05:01 12:03 RBC (4.10-5.20) X 10*6/uL Hgb (12.0-15.0) g/dL Hct (37.2-46.3) % MPV (9.5-12.2) fL Sodium 134 L (137-145) mmol/L Potassium 3.3 L (3.5-5.1) mmol/L BUN 5 L (7-17) mg/dL Creatinine 0.49 L (0.52-1.04) mg/dL Glucose 181 H (74-99) mg/dL POC Glucose (mg/dL) 208 H (75-99) mg/dL Calcium 7.5 L (8.4-10.2) mg/dL AST (14-36) U/L ALT (4-34) U/L Total Protein (6.3-8.2) g/dL Albumin (3.5-5.0) g/dL CA 19-9 Antigen 70.4 H (0.0-34.9) U/mL 11/22/20 11/22/20 11/23/20 Range/Units 17:23 20:22 00:11 RBC (4.10-5.20) X 10*6/uL Hgb (12.0-15.0) g/dL Hct (37.2-46.3) % MPV (9.5-12.2) fL Sodium (137-145) mmol/L Potassium (3.5-5.1) mmol/L BUN (7-17) mg/dL Creatinine (0.52-1.04) mg/dL Glucose (74-99) mg/dL POC Glucose (mg/dL) 134 H 176 H 166 H (75-99) mg/dL Calcium (8.4-10.2) mg/dL AST (14-36) U/L ALT (4-34) U/L Total Protein (6.3-8.2) g/dL Albumin (3.5-5.0) g/dL CA 19-9 Antigen (0.0-34.9) U/mL 11/23/20 11/23/20 11/23/20 Range/Units 05:28 06:16 06:16 RBC 3.97 L (4.10-5.20) X 10*6/uL Hgb 11.8 L (12.0-15.0) g/dL Hct 35.9 L (37.2-46.3) % MPV 9.1 L (9.5-12.2) fL Sodium (137-145) mmol/L Potassium 3.3 L (3.5-5.1) mmol/L BUN (7-17) mg/dL Creatinine (0.52-1.04) mg/dL Glucose 187 H (74-99) mg/dL POC Glucose (mg/dL) 179 H (75-99) mg/dL Calcium 8.3 L (8.4-10.2) mg/dL AST 50 H (14-36) U/L ALT 48 H (4-34) U/L Total Protein 5.6 L (6.3-8.2) g/dL Albumin 3.1 L (3.5-5.0) g/dL CA 19-9 Antigen (0.0-34.9) U/mL Microbiology - Last 24 Hours (Table) 11/22/20 10:50 Stool Culture - Preliminary Stool Assessment and Plan (1) Retroperitoneal mass Narrative/Plan: Patient overall doing fairly well. Continue NG tube to low intermittent suction. Will order upper GI through nasogastric tube on Wednesday. Await final pathology. Patient nothing by mouth with TPN infusing. Current Visit: Yes Status: Acute Code(s): R19.00 - INTRA-ABD AND PELVIC SWELLING, MASS AND LUMP, UNSP SITE SNOMED Code(s): 31215905
[2020-11-23 12:19] LABS: Glucose,Whole Blood 196 mg/dL (75-99)
[2020-11-23] MEDS: POTASSIUM CHLORIDE 20 MEQ in WATER FOR INJECTION 1 100ML.BAG IVPB SCH ×2 (13:17→15:27)
[2020-11-23] MEDS ORDERED: hydrALAZINE HCL 20 MG/ML 1 ML VIAL IVP PRN (14:45)
--- NOTE | 2020-11-23 15:56 | P.PN ---
Subjective This is a pleasant 80 years old female with past medical history of Diabetes Mellitus, Fibromyalgia, GERD/Reflux, Hyperlipidemia, Hypertension, Oste oarthritis (OA), hypothyroidism , PARKINSONS, HEART MURMUR, VARICOSE VEINS, BACK PAIN- RECEIVES INJECTIONS FROM DR STERLING 2 years ago., DIET CONTROLLED DIABETES, HX OF ANEMIA, LOW FUNCTIONING KIDNEYS (DR COTO)., PAIN BACK- USING CANE OR WALKER. [place]. She is a patient of Dr. Ronquillo. She follows up also with Dr. Fitzpatrick and neurologist for her Parkinson disease and orthopedic for her arthritis Because of epigastric abdominal pain for the last 7-10 days, increased by eating and drinking that patient could not have food or medication over the last 2-3 days. Usually her pain is 0/10 while she is lying down but it comes up and increased when she tries to sit up. Last 2-3 days she started having vomiting. Also 3 days ago she had loose diarrhea dark-colored but that was stopped over the last 2 days. Patient was not eating and drinking well She denies chest pain or dyspnea. She denies dysuria or change in frequency or urgency with her urination but just suprapubic tenderness No smoking, no alcohol or illicit drugs per patient Vitas looks stable Showing mild leukocytosis of 13.5 K, C and INR, BMP are unremarkable. Creatinine normal 0.7. Liver enzymes slightly elevated with AST 47 and ALT 117. Total bilirubin is normal 0.9. Lipase is slightly elevated at 311. Urine analysis is suspicious for infection. Matos virus nondetected. Abdominal ultrasound showing normal right kidney. There appeared to be some gallstones. No dilated ducts In the emergency room she was receiving ceftriaxone, Levaquin, normal saline at 1 30 mL/h 11/20/2020 Patient is still complaining of from nausea vomiting, or drink abdominal pain and tenderness. No bowel movement. No significant suprapubic tenderness today after starting Rocephin yesterday. Calcitonin came back negative at 0.06. Flagyl was discontinued. Liver enzymes trending down are not elevated. He remains on ceftriaxone for UTI pending urine culture on normal saline at 75 mL/h. Surgical team were consulted for possible cholecystitis although HIDA scans showed delayed imaging but less likely acute cholecystitis per reports. GI team on the case 11/21/2020 Patient underwent laparoscopic cholecystectomy today with postop diagnosis of acute cholecystitis. During the laparoscopy and retro-peritoneal mass is identified between the stomach and the pancreas were biopsy were taken. Also CT of the pancreas ordered and CA antigen 9-19 is requested by surgery team Urine culture is negative and ceftriaxone has been stopped Patient remains nothing by mouth with gentle hydration 11/22/2020 Patient is status post laparoscopic procedure yesterday however gallbladder was not taken out, as stated retroperitoneal mass could be related to pancreatic head is found, pancreatic CAT scan showed 3.5 cm mass. Biopsy from the mass done yesterday still pending as well as CA 9-19 pending. Patient is awake feels more comfortable after NG tube was placed with dark excretion in the back most likely bile. This abdominal pain. No bowel movement or passing gases. Blood pressure slightly on the high side, repeat labs tomorrow. We'll place a PICC line and start TPN as patient looks frail and did not have good nutrition over the last few days. 11/23/2020 Patient sitting in chair not in distress. NG tube was some bile discharge. Abdominal pain control. Hemodynamically stable but blood pressure elevated 177/93 and earlier was 182/73. Patient was started on clonidine patch 0.2 mg and hydralazine 5 mg when necessary. I discussed the situation with the patient while her daughter Mrs. Mcneal was at bedside, they are aware of her abdominal mass and pending biopsy. CA antigen 9- 19 came back elevated at 70 which is double the normal frustration. Labs are stable. Liver enzymes only mildly elevated. We will check LFTs in the stool Patient continues on TPN Objective - Vital Signs Vital signs: Vital Signs Temp 98.3 F 11/23/20 15:37 Pulse 90 11/23/20 15:37 Resp 14 11/23/20 15:37 BP 177/93 11/23/20 15:37 Pulse Ox 95 11/23/20 15:37 Intake & Output 11/22/20 11/23/20 11/23/20 18:59 06:59 18:59 Output Total 1000 200 Balance -1000 -200 Weight 66.224 kg Output: Gastric Drainage 1000 Urine 200 Stool 0 Other: Voiding Method Bedpan Bedpan # Voids 1 2 - Exam GENERAL: The patient is alert and oriented x3, not in any acute distress. Well developed, well nourished. HEENT: Pupils are round and equally reacting to light. EOMI. No scleral icterus. No conjunctival pallor. Normocephalic, atraumatic. No pharyngeal erythema. No thyromegaly. CARDIOVASCULAR: S1 and S2 present. No murmurs, rubs, or gallops. PULMONARY: Chest is clear to auscultation, no wheezing or crackles. -ABDOMEN: Soft, RUQ tenderness, no rebound tenderness or guarding, nondistended, normoactive bowel sounds. No palpable organomegaly. MUSCULOSKELETAL: No joint swelling or deformity. EXTREMITIES: No cyanosis, clubbing, or pedal edema. NEUROLOGICAL: Gross neurological examination did not reveal any focal deficits. SKIN: No rashes. no petechiae. - Labs CBC & Chem 7: 11/23/20 06:16 11/23/20 06:16 Labs: Abnormal Lab Results - Last 24 Hours (Table) 11/22/20 11/22/20 11/22/20 Range/Units 05:01 17:23 20:22 RBC (4.10-5.20) X 10*6/uL Hgb (12.0-15.0) g/dL Hct (37.2-46.3) % MPV (9.5-12.2) fL Potassium (3.5-5.1) mmol/L Glucose (74-99) mg/dL POC Glucose (mg/dL) 134 H 176 H (75-99) mg/dL Calcium (8.4-10.2) mg/dL AST (14-36) U/L ALT (4-34) U/L Total Protein (6.3-8.2) g/dL Albumin (3.5-5.0) g/dL CA 19-9 Antigen 70.4 H (0.0-34.9) U/mL 11/23/20 11/23/20 11/23/20 Range/Units 00:11 05:28 06:16 RBC 3.97 L (4.10-5.20) X 10*6/uL Hgb 11.8 L (12.0-15.0) g/dL Hct 35.9 L (37.2-46.3) % MPV 9.1 L (9.5-12.2) fL Potassium (3.5-5.1) mmol/L Glucose (74-99) mg/dL POC Glucose (mg/dL) 166 H 179 H (75-99) mg/dL Calcium (8.4-10.2) mg/dL AST (14-36) U/L ALT (4-34) U/L Total Protein (6.3-8.2) g/dL Albumin (3.5-5.0) g/dL CA 19-9 Antigen (0.0-34.9) U/mL 11/23/20 11/23/20 Range/Units 06:16 12:18 RBC (4.10-5.20) X 10*6/uL Hgb (12.0-15.0) g/dL Hct (37.2-46.3) % MPV (9.5-12.2) fL Potassium 3.3 L (3.5-5.1) mmol/L Glucose 187 H (74-99) mg/dL POC Glucose (mg/dL) 196 H (75-99) mg/dL Calcium 8.3 L (8.4-10.2) mg/dL AST 50 H (14-36) U/L ALT 48 H (4-34) U/L Total Protein 5.6 L (6.3-8.2) g/dL Albumin 3.1 L (3.5-5.0) g/dL CA 19-9 Antigen (0.0-34.9) U/mL Microbiology - Last 24 Hours (Table) 11/22/20 10:50 Stool Culture - Preliminary Stool Assessment and Plan Assessment: Retroperitoneal mass, could be related to pancreatic head. 3.5 cm in size. Pending biopsy [id number] calorie protein malnutrition Acute urinary tract infection , resolved. Possible Acute gastroenteritis. Improved Diabetes mellitus Fibromyalgia History of GERD Hyperlipidemia Osteoarthritis Hypothyroidism Parkinson disease Chronic back pain Chronic kidney disease and she follows up with Dr. Coto History of falls Plan: This is a pleasant 80 years old female who presents with acute cholecystitis status post laparoscopic cholecystectomy. Also patient had retroperitoneal mass pending biopsy. PICC line and start TPN Continue gentle hydration Surgery team consult gi consult Bowel rest, IV fluid and pain management Labs and medication were reviewed.. Continue same treatment. Continue with symptomatic treatment. Resume home medication. Monitor lytes and vitals. DVT and GI prophylaxis. Further recommendations depends on the clinical course of the patient DVT prophylaxis: Subcutaneous heparin GI Prophylaxis: Ppu PT/OT: Home
[2020-11-23] MEDS: SYMBICORT 160-4.5 MCG INHALER INHALATION SCH ×2 (16:48→19:46)
[2020-11-23] MEDS: 1: MVI, ADULT NO.4 WITH VIT K 10 ML, TRACE (CONC-1ML/DOSE) 1 ML in AMINO ACID 5%-D15W+LY IV SCH ×3 (16:58)
[2020-11-23 17:21] LABS: Glucose,Whole Blood 148 mg/dL (75-99)
[2020-11-23 23:43] LABS: Glucose,Whole Blood 197 mg/dL (75-99)
[2020-11-24] MEDS: INSULIN ASPART (NovoLOG) 100 UNIT/ML VIAL SQ SCH ×4 (00:38→18:39)
[2020-11-24 05:32] LABS: Glucose,Whole Blood 176 mg/dL (75-99)
[2020-11-24 07:15] LABS: African American GFR (CKD) >90 (>60 ml/min/1.73 sqM); Anion Gap 6 mmol/L; Blood Urea Nitrogen 14 mg/dL (7-17); Calcium 8.5 mg/dL (8.4-10.2); Carbon Dioxide 29 mmol/L (22-30); Chloride 103 mmol/L (98-107); Glucose 145 mg/dL (74-99); Magnesium 1.9 mg/dL (1.6-2.3); Non-African American GFR(CKD) >90 (>60 ml/min/1.73 sqM); Phosphorus 3.2 mg/dL (2.5-4.5); Potassium 3.3 mmol/L (3.5-5.1); Sodium 138 mmol/L (137-145)
[2020-11-24] MEDS: SYMBICORT 160-4.5 MCG INHALER INHALATION SCH ×2 (08:02→20:06)
[2020-11-24] MEDS: PANTOPRAZOLE 40 MG/10 ML VIAL IVP SCH (08:52)
[2020-11-24] MEDS: HEPARIN SODIUM,PORCINE/PF 5,000 UNIT/0.5 ML SYRINGE SQ SCH ×2 (08:52→23:15)
[2020-11-24] MEDS: DEXTROSE 5%-0.9% NACL 1,000 ML IV SCH (08:53)
[2020-11-24] MEDS: PRIMIDONE 50 MG TAB PO SCH ×3 (08:53→23:15)
[2020-11-24] MEDS: CARBIDOPA-LEVODOPA 25-100 MG 1 EACH TAB PO SCH ×4 (08:53→23:15)
--- NOTE | 2020-11-24 10:19 | P.PN ---
Subjective Progress Note Date: 11/24/20 Principal diagnosis: Retroperitoneal mass Patient without new complaints. Denies pain. His gastric tube remains bilious. Objective - Vital Signs Vital signs: Vital Signs Temp 98.2 F 11/24/20 08:00 Pulse 93 11/24/20 08:00 Resp 16 11/24/20 08:00 BP 168/97 11/24/20 08:00 Pulse Ox 98 11/24/20 08:00 Intake & Output 11/23/20 11/24/20 11/24/20 18:59 06:59 18:59 Output Total 900 0 Balance -900 0 Output: Gastric Drainage 700 Urine 200 Stool 0 0 Other: Voiding Method Bedpan # Voids 1 1 - Exam Abdomen: Soft, nondistended, mild epigastric tenderness, incisions clean and dry - Labs CBC & Chem 7: 11/23/20 06:16 11/24/20 06:42 Labs: Abnormal Lab Results - Last 24 Hours (Table) 11/23/20 11/23/20 11/23/20 Range/Units 12:18 17:13 23:42 Potassium (3.5-5.1) mmol/L Glucose (74-99) mg/dL POC Glucose (mg/dL) 196 H 148 H 197 H (75-99) mg/dL 11/24/20 11/24/20 Range/Units 05:29 06:42 Potassium 3.3 L (3.5-5.1) mmol/L Glucose 145 H (74-99) mg/dL POC Glucose (mg/dL) 176 H (75-99) mg/dL Assessment and Plan (1) Retroperitoneal mass Narrative/Plan: Patient doing well. Keep nasogastric tube to suction. Await final pathology. Will order upper GI for tomorrow morning. Current Visit: Yes Status: Acute Code(s): R19.00 - INTRA-ABD AND PELVIC SWELLING, MASS AND LUMP, UNSP SITE SNOMED Code(s): 31918557
[2020-11-24 12:20] LABS: Glucose,Whole Blood 239 mg/dL (75-99)
[2020-11-24] MEDS: POTASSIUM CHLORIDE 20 MEQ in WATER FOR INJECTION 1 100ML.BAG IVPB SCH ×2 (12:59→16:50)
--- NOTE | 2020-11-24 13:53 | P.PN ---
Subjective This is a pleasant 80 years old female with past medical history of Diabetes Mellitus, Fibromyalgia, GERD/Reflux, Hyperlipidemia, Hypertension, Oste oarthritis (OA), hypothyroidism , PARKINSONS, HEART MURMUR, VARICOSE VEINS, BACK PAIN- RECEIVES INJECTIONS FROM DR STERLING 2 years ago., DIET CONTROLLED DIABETES, HX OF ANEMIA, LOW FUNCTIONING KIDNEYS (DR COTO)., PAIN BACK- USING CANE OR WALKER. [place]. She is a patient of Dr. Ronquillo. She follows up also with Dr. Fitzpatrick and neurologist for her Parkinson disease and orthopedic for her arthritis Because of epigastric abdominal pain for the last 7-10 days, increased by eating and drinking that patient could not have food or medication over the last 2-3 days. Usually her pain is 0/10 while she is lying down but it comes up and increased when she tries to sit up. Last 2-3 days she started having vomiting. Also 3 days ago she had loose diarrhea dark-colored but that was stopped over the last 2 days. Patient was not eating and drinking well She denies chest pain or dyspnea. She denies dysuria or change in frequency or urgency with her urination but just suprapubic tenderness No smoking, no alcohol or illicit drugs per patient Vitas looks stable Showing mild leukocytosis of 13.5 K, C and INR, BMP are unremarkable. Creatinine normal 0.7. Liver enzymes slightly elevated with AST 47 and ALT 117. Total bilirubin is normal 0.9. Lipase is slightly elevated at 311. Urine analysis is suspicious for infection. Matos virus nondetected. Abdominal ultrasound showing normal right kidney. There appeared to be some gallstones. No dilated ducts In the emergency room she was receiving ceftriaxone, Levaquin, normal saline at 1 30 mL/h 11/20/2020 Patient is still complaining of from nausea vomiting, or drink abdominal pain and tenderness. No bowel movement. No significant suprapubic tenderness today after starting Rocephin yesterday. Calcitonin came back negative at 0.06. Flagyl was discontinued. Liver enzymes trending down are not elevated. He remains on ceftriaxone for UTI pending urine culture on normal saline at 75 mL/h. Surgical team were consulted for possible cholecystitis although HIDA scans showed delayed imaging but less likely acute cholecystitis per reports. GI team on the case 11/21/2020 Patient underwent laparoscopic cholecystectomy today with postop diagnosis of acute cholecystitis. During the laparoscopy and retro-peritoneal mass is identified between the stomach and the pancreas were biopsy were taken. Also CT of the pancreas ordered and CA antigen 9-19 is requested by surgery team Urine culture is negative and ceftriaxone has been stopped Patient remains nothing by mouth with gentle hydration 11/22/2020 Patient is status post laparoscopic procedure yesterday however gallbladder was not taken out, as stated retroperitoneal mass could be related to pancreatic head is found, pancreatic CAT scan showed 3.5 cm mass. Biopsy from the mass done yesterday still pending as well as CA 9-19 pending. Patient is awake feels more comfortable after NG tube was placed with dark excretion in the back most likely bile. This abdominal pain. No bowel movement or passing gases. Blood pressure slightly on the high side, repeat labs tomorrow. We'll place a PICC line and start TPN as patient looks frail and did not have good nutrition over the last few days. 11/23/2020 Patient sitting in chair not in distress. NG tube was some bile discharge. Abdominal pain control. Hemodynamically stable but blood pressure elevated 177/93 and earlier was 182/73. Patient was started on clonidine patch 0.2 mg and hydralazine 5 mg when necessary. I discussed the situation with the patient while her daughter Mrs. Mcneal was at bedside, they are aware of her abdominal mass and pending biopsy. CA antigen 9- 19 came back elevated at 70 which is double the normal frustration. Labs are stable. Liver enzymes only mildly elevated. We will check LFTs in the stool Patient continues on TPN 11/24/2020 Patient awake and alert and looks comfortable after she had a sleep last night. She is bothered from her NG tube which is a little tight at her nose and some discomfort in her right upper quadrant area. No pain. Vital signs stable. Low potassium was replaced per protocol. Retroperitoneal mass biopsy is still pending. She remains on TPN Objective - Vital Signs Vital signs: Vital Signs Temp 98.2 F 11/24/20 08:00 Pulse 93 11/24/20 08:00 Resp 16 11/24/20 08:00 BP 168/97 11/24/20 08:00 Pulse Ox 98 11/24/20 08:00 Intake & Output 11/23/20 11/24/20 11/24/20 18:59 06:59 18:59 Output Total 900 0 Balance -900 0 Output: Gastric Drainage 700 Urine 200 Stool 0 0 Other: Voiding Method Bedpan # Voids 1 1 - Exam GENERAL: The patient is alert and oriented x3, not in any acute distress. Well developed, well nourished. HEENT: Pupils are round and equally reacting to light. EOMI. No scleral icterus. No conjunctival pallor. Normocephalic, atraumatic. No pharyngeal erythema. No thyromegaly. CARDIOVASCULAR: S1 and S2 present. No murmurs, rubs, or gallops. PULMONARY: Chest is clear to auscultation, no wheezing or crackles. -ABDOMEN: Soft, RUQ tenderness, no rebound tenderness or guarding, nondistended, normoactive bowel sounds. No palpable organomegaly. MUSCULOSKELETAL: No joint swelling or deformity. EXTREMITIES: No cyanosis, clubbing, or pedal edema. NEUROLOGICAL: Gross neurological examination did not reveal any focal deficits. SKIN: No rashes. no petechiae. - Labs CBC & Chem 7: 11/23/20 06:16 11/24/20 06:42 Labs: Abnormal Lab Results - Last 24 Hours (Table) 11/23/20 11/23/20 11/24/20 Range/Units 17:13 23:42 05:29 Potassium (3.5-5.1) mmol/L Glucose (74-99) mg/dL POC Glucose (mg/dL) 148 H 197 H 176 H (75-99) mg/dL 11/24/20 11/24/20 Range/Units 06:42 12:18 Potassium 3.3 L (3.5-5.1) mmol/L Glucose 145 H (74-99) mg/dL POC Glucose (mg/dL) 239 H (75-99) mg/dL Assessment and Plan Assessment: Retroperitoneal mass, could be related to pancreatic head. 3.5 cm in size. Pending biopsy [id number] calorie protein malnutrition Acute urinary tract infection , resolved. Possible Acute gastroenteritis. Improved Diabetes mellitus Fibromyalgia History of GERD Hyperlipidemia Osteoarthritis Hypothyroidism Parkinson disease Chronic back pain Chronic kidney disease and she follows up with Dr. Coto History of falls Plan: This is a pleasant 80 years old female who presents with acute cholecystitis status post laparoscopic cholecystectomy. Also patient had retroperitoneal mass pending biopsy. PICC line and start TPN Continue gentle hydration Surgery team consult gi consult Bowel rest, IV fluid and pain management Labs and medication were reviewed.. Continue same treatment. Continue with symptomatic treatment. Resume home medication. Monitor lytes and vitals. DVT and GI prophylaxis. Further recommendations depends on the clinical course of the patient DVT prophylaxis: Subcutaneous heparin GI Prophylaxis: Ppu PT/OT: Home
[2020-11-24] MEDS: 1: MVI, ADULT NO.4 WITH VIT K 10 ML, TRACE (CONC-1ML/DOSE) 1 ML in AMINO ACID 5%-D15W+LY IV SCH ×3 (13:54)
[2020-11-24] MEDS: MAGNESIUM SULFATE-D5W PMX 1 GM in DEXTROSE/WATER 1 100ML.BAG IVPB SCH (15:25)
[2020-11-24 17:53] LABS: Glucose,Whole Blood 226 mg/dL (75-99)
[2020-11-25] MEDS: MAGNESIUM SULFATE-D5W PMX 1 GM in DEXTROSE/WATER 1 100ML.BAG IVPB SCH (00:21)
[2020-11-25] MEDS: POTASSIUM CHLORIDE 20 MEQ in WATER FOR INJECTION 1 100ML.BAG IVPB SCH (00:22)
[2020-11-25] MEDS: DEXTROSE 5%-0.9% NACL 1,000 ML IV SCH ×2 (00:23→08:05)
[2020-11-25 00:32] LABS: Glucose,Whole Blood 209 mg/dL (75-99)
[2020-11-25] MEDS: INSULIN ASPART (NovoLOG) 100 UNIT/ML VIAL SQ SCH ×5 (01:48→23:21)
[2020-11-25 05:51] LABS: Glucose,Whole Blood 207 mg/dL (75-99)
[2020-11-25 05:58] LABS: African American GFR (CKD) >90 (>60 ml/min/1.73 sqM); Anion Gap 6 mmol/L; Blood Urea Nitrogen 16 mg/dL (7-17); Calcium 8.5 mg/dL (8.4-10.2); Carbon Dioxide 25 mmol/L (22-30); Chloride 103 mmol/L (98-107); Glucose 209 mg/dL (74-99); Non-African American GFR(CKD) >90 (>60 ml/min/1.73 sqM); Potassium 4.4 mmol/L (3.5-5.1); Sodium 134 mmol/L (137-145)
[2020-11-25] MEDS: SYMBICORT 160-4.5 MCG INHALER INHALATION SCH ×2 (07:18→19:17)
[2020-11-25] MEDS: PRIMIDONE 50 MG TAB PO SCH ×3 (08:05→19:49)
[2020-11-25] MEDS: HEPARIN SODIUM,PORCINE/PF 5,000 UNIT/0.5 ML SYRINGE SQ SCH ×2 (08:05→19:49)
[2020-11-25] MEDS: PANTOPRAZOLE 40 MG/10 ML VIAL IVP SCH (08:05)
[2020-11-25] MEDS: CARBIDOPA-LEVODOPA 25-100 MG 1 EACH TAB PO SCH ×4 (08:05→19:49)
[2020-11-25] MEDS: 1: MVI, ADULT NO.4 WITH VIT K 10 ML, TRACE (CONC-1ML/DOSE) 1 ML in AMINO ACID 5%-D15W+LY IV SCH ×3 (09:13)
--- NOTE | 2020-11-25 10:52 | FL ---
EXAMINATION TYPE: FL UGI DATE OF EXAM: 11/25/2020 COMPARISON: CT 11/22/2020 HISTORY: Duodenal obstruction TECHNIQUE: A single contrast limited UGI study is performed. A total of 117 seconds of fluoroscopic time was utilized during procedure and 6 images obtained. FINDINGS: 60 cc of thin barium were injected through the patient's NG tube and evaluated under real-t janiya fluoroscopy. Gastric fold pattern is within normal limits. There is no evident duodenal obstructi on. Contrast material courses through the duodenum without delay. 15 cc tap water were used to flush the tube following the exam. Patient remained in stable condition. IMPRESSION: Limited exam. Duodenum does not show obstruction.
--- NOTE | 2020-11-25 11:22 | P.PN ---
<Kerry Stevenson - Last Filed: 11/25/20 11:18> Subjective Progress Note Date: 11/25/20 CHIEF COMPLAINT: Abdominal pain HISTORY OF PRESENT ILLNESS: Patient is status post diagnostic laparoscopy and biopsy of retroperitoneal mass. She reports that her pain is controlled. She has NG tube in place with bilious output. She is scheduled for upper GI today. Currently has TPN for nutrition. Patient reports having bowel movement yesterday and flatus. Denies any nausea. PHYSICAL EXAM: VITAL SIGNS: Reviewed. GENERAL: Well-developed in no acute distress. HEENT: No sclera icterus. Extraocular movements grossly intact. Moist buccal mucosa. Head is atraumatic, normocephalic. ABDOMEN: Soft. Nondistended. Nontender. Incisions clean and dry NEUROLOGIC: Alert and oriented. Cranial nerves II through XII grossly intact. ASSESSMENT: 1. Retroperitoneal mass status post diagnostic laparoscopy with biopsy PLAN: -Patient scheduled for upper GI for today -Continue NG tube -Continue pain medication as needed -Follow up on biopsy results -Encouraged patient to increase activity -Encouraged patient to use incentive spirometer -GI prophylaxis Protonix and DVT prophylaxis subcu heparin Physician Food Safety Technician note has been reviewed by physician. Signing provider agrees with the documented findings, assessment, and plan of care. Objective - Vital Signs Vital signs: Vital Signs Temp 98.6 F 11/25/20 07:37 Pulse 86 11/25/20 07:37 Resp 16 11/25/20 07:37 BP 162/90 11/25/20 07:37 Pulse Ox 98 11/25/20 07:37 Intake & Output 11/24/20 11/25/20 11/25/20 18:59 06:59 18:59 Intake Total 1000 Output Total 1100 Balance 1000 -1100 Intake: Intake, IV Titration 1000 Amount Amino Acid 5%-D15w+Lytes* 1000 E* 1,000 ml @ 50 mls/hr IV .BY DURATION [facility] Rx#: [id number] Output: Gastric Drainage 700 Urine 400 Other: Voiding Method Bedpan # Voids 1 1 1 - Labs CBC & Chem 7: 11/23/20 06:16 11/25/20 05:19 Labs: Abnormal Lab Results - Last 24 Hours (Table) 11/24/20 11/24/20 11/25/20 Range/Units 12:18 17:52 00:31 Sodium (137-145) mmol/L Creatinine (0.52-1.04) mg/dL Glucose (74-99) mg/dL POC Glucose (mg/dL) 239 H 226 H 209 H (75-99) mg/dL 11/25/20 11/25/20 Range/Units 05:19 05:49 Sodium 134 L (137-145) mmol/L Creatinine 0.47 L (0.52-1.04) mg/dL Glucose 209 H (74-99) mg/dL POC Glucose (mg/dL) 207 H (75-99) mg/dL <Parish Crain - Last Filed: 11/25/20 15:19> Subjective As above. Patient had her upper GI today. Case was discussed with radiology. No evidence of obstruction at this time. We'll remove nasogastric tube. Begin clear liquids. Await biopsy results. Objective - Vital Signs Vital signs: Vital Signs Temp 98.6 F 11/25/20 07:37 Pulse 86 11/25/20 07:37 Resp 16 11/25/20 07:37 BP 162/90 11/25/20 07:37 Pulse Ox 98 11/25/20 07:37 Intake & Output 11/24/20 11/25/20 11/25/20 18:59 06:59 18:59 Intake Total 1000 Output Total 1100 Balance 1000 -1100 Weight 66.224 kg Intake: Intake, IV Titration 1000 Amount Amino Acid 5%-D15w+Lytes* 1000 E* 1,000 ml @ 50 mls/hr IV .BY DURATION [facility] Rx#: [id number] Output: Gastric Drainage 700 Urine 400 Other: Voiding Method Bedpan # Voids 1 1 1 - Labs CBC & Chem 7: 11/23/20 06:16 11/25/20 05:19 Labs: Abnormal Lab Results - Last 24 Hours (Table) 11/24/20 11/25/20 11/25/20 Range/Units 17:52 00:31 05:19 Sodium 134 L (137-145) mmol/L Creatinine 0.47 L (0.52-1.04) mg/dL Glucose 209 H (74-99) mg/dL POC Glucose (mg/dL) 226 H 209 H (75-99) mg/dL 11/25/20 11/25/20 Range/Units 05:49 12:22 Sodium (137-145) mmol/L Creatinine (0.52-1.04) mg/dL Glucose (74-99) mg/dL POC Glucose (mg/dL) 207 H 207 H (75-99) mg/dL Assessment and Plan (1) Retroperitoneal mass Current Visit: Yes Status: Acute Code(s): R19.00 - INTRA-ABD AND PELVIC SWELLING, MASS AND LUMP, UNSP SITE SNOMED Code(s): 12155825
[2020-11-25 12:24] LABS: Glucose,Whole Blood 207 mg/dL (75-99)
[2020-11-25] MEDS: FAT EMULSION 20% 250 ML IV SCH (16:36)
[2020-11-25 17:56] LABS: Glucose,Whole Blood 194 mg/dL (75-99)
[2020-11-25 23:15] LABS: Glucose,Whole Blood 233 mg/dL (75-99)
[2020-11-26] MEDS: 1: MVI, ADULT NO.4 WITH VIT K 10 ML, TRACE (CONC-1ML/DOSE) 1 ML in AMINO ACID 5%-D15W+LY IV SCH ×3 (03:20)
[2020-11-26 05:14] LABS: Glucose,Whole Blood 221 mg/dL (75-99)
[2020-11-26] MEDS: INSULIN ASPART (NovoLOG) 100 UNIT/ML VIAL SQ SCH ×3 (05:26→17:46)
[2020-11-26 07:24] LABS: African American GFR (CKD) >90 (>60 ml/min/1.73 sqM); Anion Gap 8 mmol/L; Blood Urea Nitrogen 19 mg/dL (7-17); Calcium 8.7 mg/dL (8.4-10.2); Carbon Dioxide 26 mmol/L (22-30); Chloride 97 mmol/L (98-107); Glucose 226 mg/dL (74-99); Magnesium 1.9 mg/dL (1.6-2.3); Non-African American GFR(CKD) >90 (>60 ml/min/1.73 sqM); Sodium 131 mmol/L (137-145)
[2020-11-26 07:30] LABS: Potassium 3.5 mmol/L (3.5-5.1)
[2020-11-26 08:04] LABS: Glucose,Whole Blood 197 mg/dL (75-99)
[2020-11-26] MEDS: CARBIDOPA-LEVODOPA 25-100 MG 1 EACH TAB PO SCH ×4 (08:23→20:06)
[2020-11-26] MEDS: PANTOPRAZOLE 40 MG/10 ML VIAL IVP SCH (08:23)
[2020-11-26] MEDS: PRIMIDONE 50 MG TAB PO SCH ×3 (08:23→20:06)
[2020-11-26] MEDS: HEPARIN SODIUM,PORCINE/PF 5,000 UNIT/0.5 ML SYRINGE SQ SCH ×2 (08:23→20:05)
[2020-11-26 09:21] LABS: Basophils # (A) 0.1 k/uL (0-0.2); Basophils % (A) 1 %; Eosinophils # (A) 0.5 k/uL (0-0.7); Eosinophils % (A) 5 %; HCT 38.2 % (34.0-46.0); HGB 12.9 gm/dL (11.4-16.0); Lymphocytes % (A) 21 %; MCH 31.7 pg (25.0-35.0); MCHC 33.8 g/dL (31.0-37.0); MCV 93.8 fL (80.0-100.0); Mean Platelet Volume 7.3; Monocytes # (A) 0.7 k/uL (0-1.0); Monocytes % (A) 8 %; Neutrophils % (A) 64 %; Platelet Count 278 k/uL (150-450); RBC 4.07 m/uL (3.80-5.40); RDW 13.4 % (11.5-15.5); WBC 9.4 k/uL (3.8-10.6)
--- NOTE | 2020-11-26 09:27 | P.PN ---
Subjective Progress Note Date: 11/25/20 This is a pleasant 80 years old female with past medical history of Diabetes Mellitus, Fibromyalgia, GERD/Reflux, Hyperlipidemia, Hypertension, Osteoarthritis (OA), hypothyroidism , PARKINSONS, HEART MURMUR, VARICOSE VEINS, BACK PAIN- RECEIVES INJECTIONS FROM DR STERLING 2 years ago., DIET CONTROLLED DI ABETES, HX OF ANEMIA, LOW FUNCTIONING KIDNEYS (DR COTO)., PAIN BACK- USING CANE OR WALKER. [place]. She is a patient of Dr. Ronquillo. She follows up also with Dr. Fitzpatrick and neurologist for her Parkinson disease and orthopedic for her arthritis Because of epigastric abdominal pain for the last 7-10 days, increased by eating and drinking that patient could not have food or medication over the last 2-3 days. Usually her pain is 0/10 while she is lying down but it comes up and increased when she tries to sit up. Last 2-3 days she started having vomiting. Also 3 days ago she had loose diarrhea dark-colored but that was stopped over the last 2 days. Patient was not eating and drinking well She denies chest pain or dyspnea. She denies dysuria or change in frequency or urgency with her urination but just suprapubic tenderness No smoking, no alcohol or illicit drugs per patient Vitas looks stable Showing mild leukocytosis of 13.5 K, C and INR, BMP are unremarkable. Creatinine normal 0.7. Liver enzymes slightly elevated with AST 47 and ALT 117. Total bilirubin is normal 0.9. Lipase is slightly elevated at 311. Urine analysis is suspicious for infection. Matos virus nondetected. Abdominal ultrasound showing normal right kidney. There appeared to be some gallstones. No dilated ducts In the emergency room she was receiving ceftriaxone, Levaquin, normal saline at 1 30 mL/h 11/20/2020 Patient is still complaining of from nausea vomiting, or drink abdominal pain and tenderness. No bowel movement. No significant suprapubic tenderness today after starting Rocephin yesterday. Calcitonin came back negative at 0.06. Flagyl was discontinued. Liver enzymes trending down are not elevated. He remains on ceftriaxone for UTI pending urine culture on normal saline at 75 mL/h. Surgical team were consulted for possible cholecystitis although HIDA scans showed delayed imaging but less likely acute cholecystitis per reports. GI team on the case 11/21/2020 Patient underwent laparoscopic cholecystectomy today with postop diagnosis of acute cholecystitis. During the laparoscopy and retro-peritoneal mass is identified between the stomach and the pancreas were biopsy were taken. Also CT of the pancreas ordered and CA antigen 9-19 is requested by surgery team Urine culture is negative and ceftriaxone has been stopped Patient remains nothing by mouth with gentle hydration 11/22/2020 Patient is status post laparoscopic procedure yesterday however gallbladder was not taken out, as stated retroperitoneal mass could be related to pancreatic head is found, pancreatic CAT scan showed 3.5 cm mass. Biopsy from the mass done yesterday still pending as well as CA 9-19 pending. Patient is awake feels more comfortable after NG tube was placed with dark excretion in the back most likely bile. This abdominal pain. No bowel movement or passing gases. Blood pressure slightly on the high side, repeat labs tomorrow. We'll place a PICC line and start TPN as patient looks frail and did not have good nutrition over the last few days. 11/23/2020 Patient sitting in chair not in distress. NG tube was some bile discharge. Abdominal pain control. Hemodynamically stable but blood pressure elevated 177/93 and earlier was 182/73. Patient was started on clonidine patch 0.2 mg and hydralazine 5 mg when necessary. I discussed the situation with the patient while her daughter Mrs. Mcneal was at bedside, they are aware of her abdominal mass and pending biopsy. CA antigen 9- 19 came back elevated at 70 which is double the normal frustration. Labs are stable. Liver enzymes only mildly elevated. We will check LFTs in the stool Patient continues on TPN 11/24/2020 Patient awake and alert and looks comfortable after she had a sleep last night. She is bothered from her NG tube which is a little tight at her nose and some discomfort in her right upper quadrant area. No pain. Vital signs stable. Low potassium was replaced per protocol. Retroperitoneal mass biopsy is still pending. She remains on TPN 11/25/2020 Patient is seen in follow-up this morning continues with an NG tube and states she is passing gas. Patient continues on TPN following with surgery closely. Recommend continue Accu-Cheks and sliding scale as needed. Patient was on dextrose 5% normal saline and will discontinue his blood sugars have been elevated and will continue Accu-Cheks and sliding scale. Patient scheduled to have an upper GI series x-ray done today and will await report. Blood pressure is mildly elevated and will continue with Catapres patch along with hydralazine as needed. Will resume home dose medication once oral intake improves. Patient is tolerating ice chips. Review of systems: Constitutional: No reports of fatigue, fever, or chills Cardiovascular: No reports of chest pain or palpitations Respiratory: No reports of shortness of breath or cough GI: No reports of nausea, vomiting, or diarrhea : No reports of dysuria or retention Neurovascular: Reports generalized weakness and feels more strong all medications have been reviewed Active Medications Budesonide/Formoterol Fumarate (Symbicort 160-4.5 Mcg Inhaler) 2 puff INHALATIO N RT-BID [facility] Last Admin: 11/25/20 07:18 Dose: Not Given Documented by: Carbidopa/Levodopa (Carbidopa-Levodopa 25-100 Mg 1 Each Tab) 1 each PO QID [facility] Last Admin: 11/25/20 13:11 Dose: 1 each Documented by: Clonidine HCl (Clonidine 0.2 Mg/24hr Patch) 1 patch TRANSDERM Q7D [facility] Last Admin: 11/23/20 10:15 Dose: 1 patch Documented by: Heparin Sodium (Porcine) (Heparin Sodium,Porcine/Pf 5,000 Unit/0.5 Ml Syringe) 5,000 unit SQ Q12HR [facility] Last Admin: 11/25/20 08:05 Dose: 5,000 unit Documented by: Hydralazine HCl (Hydralazine Hcl 20 Mg/Ml 1 Ml Vial) 5 mg IVP Q6HR PRN PRN Reason: Blood Pressure - High Last Admin: 11/23/20 15:38 Dose: 5 mg Documented by: Hydromorphone HCl (Hydromorphone 0.5 Mg/0.5 Ml Syringe) 0.5 mg IVP Q3HR PRN PRN Reason: Moderate Pain Last Admin: 11/20/20 16:49 Dose: 0.5 mg Documented by: Fat Emulsion Intravenous (Lipids 20%) 250 mls @ 20.833 mls/hr IV MoWeFr@1600 [facility] Last Admin: 11/25/20 16:36 Dose: 20.833 mls/hr Documented by: Parenteral Vitamin Supplement 10 ml/ Zinc/Copper/Manganese/Selenium 1 ml/ Amino Ac/Electrol/Dextrose/Calcium 1,011 mls @ 50 mls/hr IV .BY DURATION [facility] Last Admin: 11/24/20 13:54 Dose: 50 mls/hr Documented by: Amino Ac/Electrol/Dextrose/Calcium (Clinimix E 5%-D15% Solution) 1,000 mls @ 50 mls/hr IV .BY DURATION [facility] Last Admin: 11/25/20 09:13 Dose: 50 mls/hr Documented by: Insulin Aspart (Insulin Aspart (Novolog) 100 Unit/Ml Vial) 0 unit SQ Q6HR [facility]; Protocol Last Admin: 11/25/20 13:11 Dose: 3 unit Documented by: Miscellaneous Information (Potassium Replacement Protocol 1 Each [facility]) 1 each MISCELLANE DAILY PRN; Protocol PRN Reason: Per Protocol Naloxone HCl (Naloxone 0.4 Mg/Ml 1 Ml Vial) 0.2 mg IV Q2M PRN PRN Reason: Opioid Reversal Ondansetron HCl (Ondansetron 4 Mg/2 Ml Vial) 4 mg IVP Q8HR PRN PRN Reason: Nausea And Vomiting Last Admin: 11/21/20 14:23 Dose: 4 mg Documented by: Pantoprazole Sodium (Pantoprazole 40 Mg/10 Ml Vial) 40 mg IVP DAILY [facility] Last Admin: 11/25/20 08:05 Dose: 40 mg Documented by: Primidone (Primidone 50 Mg Tab) 100 mg PO HS [facility] Last Admin: 11/24/20 23:15 Dose: 100 mg Documented by: Primidone (Primidone 50 Mg Tab) 50 mg PO BID@0700,1200 [facility] Last Admin: 11/25/20 13:11 Dose: 50 mg Documented by: Sodium Chloride (Sodium Chloride 0.9% Flush 10 Ml Syringe) 10 ml IV WEEKLY [facility] Sodium Chloride (Sodium Chloride 0.9% Flush 10 Ml Syringe) 20 ml IV Q4HR PRN PRN Reason: PICC Line Sodium Chloride (Sodium Chloride 0.9% Flush 10 Ml Syringe) 10 ml IV Q4HR PRN PRN Reason: PICC Line Physical exam: GENERAL: The patient is alert and oriented x3, not in any acute distress. Well developed, well nourished. HEENT: Pupils are round and equally reacting to light. EOMI. No scleral icterus. No conjunctival pallor. Normocephalic, atraumatic. No pharyngeal erythema. No thyromegaly. NG tube noted CARDIOVASCULAR: S1 and S2 present. No murmurs, rubs, or gallops. PULMONARY: Chest is clear to auscultation, no wheezing or crackles. ABDOMEN: Soft, RUQ tenderness, no rebound tenderness or guarding, nondistended, normoactive bowel sounds. No palpable organomegaly. MUSCULOSKELETAL: No joint swelling or deformity. EXTREMITIES: No cyanosis, clubbing, or pedal edema. NEUROLOGICAL: Gross neurological examination did not reveal any focal deficits. SKIN: No rashes. no petechiae. Assessment and plan: Retroperitoneal mass, could be related to pancreatic head. 3.5 cm in size. Pending biopsy moderate calorie protein malnutrition Acute urinary tract infection , resolved. Possible Acute gastroenteritis. Improved Diabetes mellitus Fibromyalgia History of GERD Hyperlipidemia Osteoarthritis Hypothyroidism Parkinson disease Chronic back pain Chronic kidney disease and she follows up with Dr. Coto History of falls GI prophylaxis DVT prophylaxis full code Plan: This is a pleasant 80 years old female who presents with acute cholecystitis status post laparoscopic cholecystectomy. Also patient had retroperitoneal mass pending biopsy. Patient has received a PICC line and continued on TPN patient was on dextrose normal saline and blood sugars have become more elevated and will discontinue and continue with Accu-Cheks and sliding scale Surgery following closely. Patient tolerating ice chips and scheduled for upper GI series x-ray with possibility of removal of NG tube. Further recommendations depends on the clinical course of the patient PT/OT: Home Objective - Vital Signs Vital signs: Vital Signs Temp 98.6 F 11/25/20 07:37 Pulse 86 11/25/20 07:37 Resp 16 11/25/20 07:37 BP 162/90 11/25/20 07:37 Pulse Ox 98 11/25/20 07:37 Intake & Output 11/24/20 11/25/20 11/25/20 18:59 06:59 18:59 Intake Total 1000 Output Total 1100 Balance 1000 -1100 Intake: Intake, IV Titration 1000 Amount Amino Acid 5%-D15w+Lytes* 1000 E* 1,000 ml @ 50 mls/hr IV .BY DURATION [facility] Rx#: [id number] Output: Gastric Drainage 700 Urine 400 Other: Voiding Method Bedpan # Voids 1 1 1 - Labs CBC & Chem 7: 11/23/20 06:16 11/26/20 05:39 Labs: Abnormal Lab Results - Last 24 Hours (Table) 11/24/20 11/24/20 11/25/20 Range/Units 12:18 17:52 00:31 Sodium (137-145) mmol/L Creatinine (0.52-1.04) mg/dL Glucose (74-99) mg/dL POC Glucose (mg/dL) 239 H 226 H 209 H (75-99) mg/dL 11/25/20 11/25/20 Range/Units 05:19 05:49 Sodium 134 L (137-145) mmol/L Creatinine 0.47 L (0.52-1.04) mg/dL Glucose 209 H (74-99) mg/dL POC Glucose (mg/dL) 207 H (75-99) mg/dL
[2020-11-26] MEDS: SYMBICORT 160-4.5 MCG INHALER INHALATION SCH ×2 (09:47→19:41)
[2020-11-26] MEDS ORDERED: POTASSIUM CHLORIDE 20 MEQ in WATER FOR INJECTION 1 100ML.BAG IVPB SCH (11:00)
--- NOTE | 2020-11-26 12:01 | P.PN ---
<Kerry Stevenson - Last Filed: 11/26/20 11:58> Subjective Progress Note Date: 11/26/20 CHIEF COMPLAINT: Abdominal pain HISTORY OF PRESENT ILLNESS: Patient is status post diagnostic laparoscopy and biopsy of retroperitoneal mass. Patient is sitting up in bed comfortably. She had a loose bowel movements. She denies any abdominal pain. She denies any nausea or vomiting. Currently on a clear liquid diet. Afebrile. She has had mild tachycardia. Her beta farhat has been on hold. WBC 9.4. Upper GI shows no evidence of obstruction. NG tube was removed yesterday. PHYSICAL EXAM: VITAL SIGNS: Reviewed. GENERAL: Well-developed in no acute distress. HEENT: No sclera icterus. Extraocular movements grossly intact. Moist buccal mucosa. Head is atraumatic, normocephalic. ABDOMEN: Soft. Nondistended. Nontender. Incisions clean and dry NEUROLOGIC: Alert and oriented. Cranial nerves II through XII grossly intact. ASSESSMENT: 1. Retroperitoneal mass status post diagnostic laparoscopy with biopsy PLAN: -Continue clear liquid diet -Continue pain medication as needed -Follow up on biopsy results -Encouraged patient to increase activity -Encouraged patient to use incentive spirometer -Okay to resume oral home medications -GI prophylaxis Protonix and DVT prophylaxis subcu heparin Physician Data Power Consultant note has been reviewed by physician. Signing provider agrees with the documented findings, assessment, and plan of care. Objective - Vital Signs Vital signs: Vital Signs Temp 98.3 F 11/26/20 07:26 Pulse 106 H 11/26/20 07:26 Resp 16 11/26/20 07:26 BP 159/90 11/26/20 07:26 Pulse Ox 96 11/26/20 07:26 Intake & Output 11/25/20 11/26/20 11/26/20 18:59 06:59 18:59 Intake Total 1341 210 Output Total 600 0 Balance 741 0 210 Weight 66.224 kg Intake: Intake, IV Titration 1011 Amount Mvi, Adult No.4 with Vit 1011 K 10 ml Trace (Conc-1Ml/ Dose) 1 ml In Amino Acid 5%-D15w+Lytes*E* 1,000 ml @ 50 mls/hr IV .BY DURATION [facility]YLER Rx#: [id number] Oral 330 210 Output: Gastric Drainage 600 Stool 0 Other: Voiding Method Bedpan # Voids 4 2 # Bowel Movements 1 - Labs CBC & Chem 7: 11/26/20 05:39 11/26/20 05:39 Labs: Abnormal Lab Results - Last 24 Hours (Table) 11/25/20 11/25/20 11/25/20 Range/Units 12:22 17:33 23:13 Sodium (137-145) mmol/L Chloride (98-107) mmol/L BUN (7-17) mg/dL Creatinine (0.52-1.04) mg/dL Glucose (74-99) mg/dL POC Glucose (mg/dL) 207 H 194 H 233 H (75-99) mg/dL 11/26/20 11/26/20 11/26/20 Range/Units 05:12 05:39 08:02 Sodium 131 L (137-145) mmol/L Chloride 97 L (98-107) mmol/L BUN 19 H (7-17) mg/dL Creatinine 0.50 L (0.52-1.04) mg/dL Glucose 226 H (74-99) mg/dL POC Glucose (mg/dL) 221 H 197 H (75-99) mg/dL Microbiology - Last 24 Hours (Table) 11/22/20 10:50 Stool Culture - Final Stool <Parish Crain - Last Filed: 11/26/20 14:32> Subjective As above. Patient tolerating clear liquids well. No nausea or vomiting. I did speak to pathology. 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 Will advance diet. If tolerates May discharge home with outpatient follow-up with myself and oncology. Objective - Vital Signs Vital signs: Vital Signs Temp 98.3 F 11/26/20 07:26 Pulse 106 H 11/26/20 07:26 Resp 16 11/26/20 07:26 BP 159/90 11/26/20 07:26 Pulse Ox 96 11/26/20 07:26 Intake & Output 11/25/20 11/26/20 11/26/20 18:59 06:59 18:59 Intake Total 1341 210 Output Total 600 0 Balance 741 0 210 Weight 66.224 kg Intake: Intake, IV Titration 1011 Amount Mvi, Adult No.4 with Vit 1011 K 10 ml Trace (Conc-1Ml/ Dose) 1 ml In Amino Acid 5%-D15w+Lytes*E* 1,000 ml @ 50 mls/hr IV .BY DURATION [facility] Rx#: [id number] Oral 330 210 Output: Gastric Drainage 600 Stool 0 Other: Voiding Method Bedpan # Voids 4 2 # Bowel Movements 1 - Labs CBC & Chem 7: 11/26/20 05:39 11/26/20 05:39 Labs: Abnormal Lab Results - Last 24 Hours (Table) 11/25/20 11/25/20 11/26/20 Range/Units 17:33 23:13 05:12 Sodium (137-145) mmol/L Chloride (98-107) mmol/L BUN (7-17) mg/dL Creatinine (0.52-1.04) mg/dL Glucose (74-99) mg/dL POC Glucose (mg/dL) 194 H 233 H 221 H (75-99) mg/dL 11/26/20 11/26/20 11/26/20 Range/Units 05:39 08:02 13:03 Sodium 131 L (137-145) mmol/L Chloride 97 L (98-107) mmol/L BUN 19 H (7-17) mg/dL Creatinine 0.50 L (0.52-1.04) mg/dL Glucose 226 H (74-99) mg/dL POC Glucose (mg/dL) 197 H 211 H (75-99) mg/dL Microbiology - Last 24 Hours (Table) 11/22/20 10:50 Stool Culture - Final Stool Assessment and Plan (1) Retroperitoneal mass Current Visit: Yes Status: Acute Code(s): R19.00 - INTRA-ABD AND PELVIC SWELLING, MASS AND LUMP, UNSP SITE SNOMED Code(s): 40107334
[2020-11-26] MEDS ORDERED: POTASSIUM CHLORIDE ER 20 MEQ TAB.ER PO STA (12:24)
[2020-11-26] MEDS ORDERED: MAGNESIUM OXIDE 400 MG TAB PO STA (12:27)
[2020-11-26] MEDS: MAGNESIUM SULFATE-D5W PMX 1 GM in DEXTROSE/WATER 1 100ML.BAG IVPB SCH ×2 (13:22→13:25)
[2020-11-26 13:33] LABS: Glucose,Whole Blood 211 mg/dL (75-99)
[2020-11-26] MEDS ORDERED: POTASSIUM CHLORIDE ER 20 MEQ TAB.ER PO ONE (14:00)
--- NOTE | 2020-11-26 15:08 | P.PN ---
Subjective Progress Note Date: 11/26/20 This is a pleasant 80 years old female with past medical history of Diabetes Mellitus, Fibromyalgia, GERD/Reflux, Hyperlipidemia, Hypertension, Osteoarthritis (OA), hypothyroidism , PARKINSONS, HEART MURMUR, VARICOSE VEINS, BACK PAIN- RECEIVES INJECTIONS FROM DR STERLING 2 years ago., DIET CONTROLLED DI ABETES, HX OF ANEMIA, LOW FUNCTIONING KIDNEYS (DR COTO)., PAIN BACK- USING CANE OR WALKER. [place]. She is a patient of Dr. Ronquillo. She follows up also with Dr. Fitzpatrick and neurologist for her Parkinson disease and orthopedic for her arthritis Because of epigastric abdominal pain for the last 7-10 days, increased by eating and drinking that patient could not have food or medication over the last 2-3 days. Usually her pain is 0/10 while she is lying down but it comes up and increased when she tries to sit up. Last 2-3 days she started having vomiting. Also 3 days ago she had loose diarrhea dark-colored but that was stopped over the last 2 days. Patient was not eating and drinking well She denies chest pain or dyspnea. She denies dysuria or change in frequency or urgency with her urination but just suprapubic tenderness No smoking, no alcohol or illicit drugs per patient Vitas looks stable Showing mild leukocytosis of 13.5 K, C and INR, BMP are unremarkable. Creatinine normal 0.7. Liver enzymes slightly elevated with AST 47 and ALT 117. Total bilirubin is normal 0.9. Lipase is slightly elevated at 311. Urine analysis is suspicious for infection. Matos virus nondetected. Abdominal ultrasound showing normal right kidney. There appeared to be some gallstones. No dilated ducts In the emergency room she was receiving ceftriaxone, Levaquin, normal saline at 1 30 mL/h 11/20/2020 Patient is still complaining of from nausea vomiting, or drink abdominal pain and tenderness. No bowel movement. No significant suprapubic tenderness today after starting Rocephin yesterday. Calcitonin came back negative at 0.06. Flagyl was discontinued. Liver enzymes trending down are not elevated. He remains on ceftriaxone for UTI pending urine culture on normal saline at 75 mL/h. Surgical team were consulted for possible cholecystitis although HIDA scans showed delayed imaging but less likely acute cholecystitis per reports. GI team on the case 11/21/2020 Patient underwent laparoscopic cholecystectomy today with postop diagnosis of acute cholecystitis. During the laparoscopy and retro-peritoneal mass is identified between the stomach and the pancreas were biopsy were taken. Also CT of the pancreas ordered and CA antigen 9-19 is requested by surgery team Urine culture is negative and ceftriaxone has been stopped Patient remains nothing by mouth with gentle hydration 11/22/2020 Patient is status post laparoscopic procedure yesterday however gallbladder was not taken out, as stated retroperitoneal mass could be related to pancreatic head is found, pancreatic CAT scan showed 3.5 cm mass. Biopsy from the mass done yesterday still pending as well as CA 9-19 pending. Patient is awake feels more comfortable after NG tube was placed with dark excretion in the back most likely bile. This abdominal pain. No bowel movement or passing gases. Blood pressure slightly on the high side, repeat labs tomorrow. We'll place a PICC line and start TPN as patient looks frail and did not have good nutrition over the last few days. 11/23/2020 Patient sitting in chair not in distress. NG tube was some bile discharge. Abdominal pain control. Hemodynamically stable but blood pressure elevated 177/93 and earlier was 182/73. Patient was started on clonidine patch 0.2 mg and hydralazine 5 mg when necessary. I discussed the situation with the patient while her daughter Mrs. Mcneal was at bedside, they are aware of her abdominal mass and pending biopsy. CA antigen 9- 19 came back elevated at 70 which is double the normal frustration. Labs are stable. Liver enzymes only mildly elevated. We will check LFTs in the stool Patient continues on TPN 11/24/2020 Patient awake and alert and looks comfortable after she had a sleep last night. She is bothered from her NG tube which is a little tight at her nose and some discomfort in her right upper quadrant area. No pain. Vital signs stable. Low potassium was replaced per protocol. Retroperitoneal mass biopsy is still pending. She remains on TPN 11/25/2020 Patient is seen in follow-up this morning continues with an NG tube and states she is passing gas. Patient continues on TPN following with surgery closely. Recommend continue Accu-Cheks and sliding scale as needed. Patient was on dextrose 5% normal saline and will discontinue his blood sugars have been elevated and will continue Accu-Cheks and sliding scale. Patient scheduled to have an upper GI series x-ray done today and will await report. Blood pressure is mildly elevated and will continue with Catapres patch along with hydralazine as needed. Will resume home dose medication once oral intake improves. Patient is tolerating ice chips. 11/26/2020 Patient is seen and evaluated in follow-up this morning stating she is feeling better and tolerating oral intake being advanced per surgical recommendations to low fiber. Wean TPN. Dietitian following. Recommend to continue with Accu- Cheks and sliding scale as needed. Blood pressures have been slightly elevated and will resume home medications as she is tolerating by mouth intake. Awaiting PT/OT evaluation as patient continued to be weak. Patient is adamant about going home with family on discharge. White blood count is 9.4 with a hemoglobin of 12.9, sodium is 131 with a potassium of 3.5, BUN is 19 and creatinine is 0.50. Magnesium 1.9. Review of systems: Constitutional: No reports of fatigue, fever, or chills Cardiovascular: No reports of chest pain or palpitations Respiratory: No reports of shortness of breath or cough GI: No reports of nausea, vomiting, or diarrhea : No reports of dysuria or retention Neurovascular: Reports generalized weakness and feels more strong all medications have been reviewed Active Medications Budesonide/Formoterol Fumarate (Symbicort 160-4.5 Mcg Inhaler) 2 puff INHALATION RT-BID [facility] Last Admin: 11/26/20 09:47 Dose: Not Given Documented by: Carbidopa/Levodopa (Carbidopa-Levodopa 25-100 Mg 1 Each Tab) 1 each PO QID [facility] Last Admin: 11/26/20 13:14 Dose: 1 each Documented by: Clonidine HCl (Clonidine 0.2 Mg/24hr Patch) 1 patch TRANSDERM Q7D [facility] Last Admin: 11/23/20 10:15 Dose: 1 patch Documented by: Heparin Sodium (Porcine) (Heparin Sodium,Porcine/Pf 5,000 Unit/0.5 Ml Syringe) 5,000 unit SQ Q12HR [facility] Last Admin: 11/26/20 08:23 Dose: 5,000 unit Documented by: Hydralazine HCl (Hydralazine Hcl 20 Mg/Ml 1 Ml Vial) 5 mg IVP Q6HR PRN PRN Reason: Blood Pressure - High Last Admin: 11/23/20 15:38 Dose: 5 mg Documented by: Hydromorphone HCl (Hydromorphone 0.5 Mg/0.5 Ml Syringe) 0.5 mg IVP Q3HR PRN PRN Reason: Moderate Pain Last Admin: 11/20/20 16:49 Dose: 0.5 mg Documented by: Fat Emulsion Intravenous (Lipids 20%) 250 mls @ 20.833 mls/hr IV [id number] [facility] Last Admin: 11/25/20 16:36 Dose: 20.833 mls/hr Documented by: Parenteral Vitamin Supplement 10 ml/ Zinc/Copper/Manganese/Selenium 1 ml/ Amino Ac/Electrol/Dextrose/Calcium 1,011 mls @ 50 mls/hr IV .BY DURATION [facility] Last Admin: 11/26/20 03:20 Dose: 50 mls/hr Documented by: Amino Ac/Electrol/Dextrose/Calcium (Clinimix E 5%-D15% Solution) 1,000 mls @ 50 mls/hr IV .BY DURATION [facility] Last Admin: 11/25/20 09:13 Dose: 50 mls/hr Documented by: Insulin Aspart (Insulin Aspart (Novolog) 100 Unit/Ml Vial) 0 unit SQ Q6HR [facility]; Protocol Last Admin: 11/26/20 13:23 Dose: 3 unit Documented by: Miscellaneous Information (Potassium Replacement Protocol 1 Each Misc) 1 each MISCELLANE DAILY PRN; Protocol PRN Reason: Per Protocol Naloxone HCl (Naloxone 0.4 Mg/Ml 1 Ml Vial) 0.2 mg IV Q2M PRN PRN Reason: Opioid Reversal Ondansetron HCl (Ondansetron 4 Mg/2 Ml Vial) 4 mg IVP Q8HR PRN PRN Reason: Nausea And Vomiting Last Admin: 11/21/20 14:23 Dose: 4 mg Documented by: Pantoprazole Sodium (Pantoprazole 40 Mg/10 Ml Vial) 40 mg IVP DAILY [facility] Last Admin: 11/26/20 08:23 Dose: 40 mg Documented by: Primidone (Primidone 50 Mg Tab) 100 mg PO HS [facility] Last Admin: 11/25/20 19:49 Dose: 100 mg Documented by: Primidone (Primidone 50 Mg Tab) 50 mg PO BID@0700,1200 [facility] Last Admin: 11/26/20 13:14 Dose: 50 mg Documented by: Sodium Chloride (Sodium Chloride 0.9% Flush 10 Ml Syringe) 10 ml IV WEEKLY SKYLER Sodium Chloride (Sodium Chloride 0.9% Flush 10 Ml Syringe) 20 ml IV Q4HR PRN PRN Reason: PICC Line Sodium Chloride (Sodium Chloride 0.9% Flush 10 Ml Syringe) 10 ml IV Q4HR PRN PRN Reason: PICC Line Physical exam: GENERAL: The patient is alert and oriented x3, not in any acute distress. Well developed, well nourished. HEENT: Pupils are round and equally reacting to light. EOMI. No scleral icterus. No conjunctival pallor. Normocephalic, atraumatic. No pharyngeal erythema. No thyromegaly. CARDIOVASCULAR: S1 and S2 present. No murmurs, rubs, or gallops. PULMONARY: Chest is clear to auscultation, no wheezing or crackles. ABDOMEN: Soft, no rebound tenderness or guarding, nondistended, normoactive bowel sounds. No palpable organomegaly. MUSCULOSKELETAL: No joint swelling or deformity. EXTREMITIES: No cyanosis, clubbing, or pedal edema. NEUROLOGICAL: Gross neurological examination did not reveal any focal deficits. SKIN: No rashes. no petechiae. Assessment and plan: Retroperitoneal mass, could be related to pancreatic head. 3.5 cm in size. Preliminary positive for pathology awaiting final report moderate calorie protein malnutrition Acute urinary tract infection , resolved. Possible Acute gastroenteritis. Improved Diabetes mellitus Hypertension Fibromyalgia History of GERD Hyperlipidemia Osteoarthritis Hypothyroidism Parkinson disease Chronic back pain Chronic kidney disease and she follows up with Dr. Coto History of falls GI prophylaxis DVT prophylaxis full code Plan: Recommend continue with current medications and slowly advance diet per surgical recommendations and NG tube has been removed. Patient is status post diagnostic laparoscopy with biopsy which confirmed a positive pathology. Patient reports to passing gas and having bowel movements and has been tolerating diet. Wean TPN. PT/OT evaluated the patient and awaiting recommendations. Patient is adamant about going home with daughter may need to arrange for some home care. Will discuss with case management. Blood pressure been slightly elevated and will resume home medications as she is tolerating by mouth intake. Will replace potassium of 3.5 and magnesium of 1.7 per protocol oral as patient is unable to tolerate IV potassium due to pain. Surgery following closely and advancing diet to low fiber. Will monitor for tolerance. Will repeat labs in the morning with possible discharge in 24 hours. Objective - Vital Signs Vital signs: Vital Signs Temp 98.3 F 11/26/20 07:26 Pulse 106 H 11/26/20 07:26 Resp 16 11/26/20 07:26 BP 159/90 11/26/20 07:26 Pulse Ox 96 11/26/20 07:26 Intake & Output 11/25/20 11/26/20 11/26/20 18:59 06:59 18:59 Intake Total 1341 Output Total 600 0 Balance 741 0 Weight 66.224 kg Intake: Intake, IV Titration 1011 Amount Mvi, Adult No.4 with Vit 1011 K 10 ml Trace (Conc-1Ml/ Dose) 1 ml In Amino Acid 5%-D15w+Lytes*E* 1,000 ml @ 50 mls/hr IV .BY DURATION [facility]YL[facility] Rx#: [id number] Oral 330 Output: Gastric Drainage 600 Stool 0 Other: Voiding Method Bedpan # Voids 4 2 # Bowel Movements 1 - Labs CBC & Chem 7: 11/26/20 05:39 11/26/20 05:39 Labs: Abnormal Lab Results - Last 24 Hours (Table) 11/25/20 11/25/20 11/25/20 Range/Units 12:22 17:33 23:13 Sodium (137-145) mmol/L Chloride (98-107) mmol/L BUN (7-17) mg/dL Creatinine (0.52-1.04) mg/dL Glucose (74-99) mg/dL POC Glucose (mg/dL) 207 H 194 H 233 H (75-99) mg/dL 11/26/20 11/26/20 11/26/20 Range/Units 05:12 05:39 08:02 Sodium 131 L (137-145) mmol/L Chloride 97 L (98-107) mmol/L BUN 19 H (7-17) mg/dL Creatinine 0.50 L (0.52-1.04) mg/dL Glucose 226 H (74-99) mg/dL POC Glucose (mg/dL) 221 H 197 H (75-99) mg/dL Microbiology - Last 24 Hours (Table) 11/22/20 10:50 Stool Culture - Final Stool
[2020-11-26] MEDS: lisinopriL 10 MG TAB PO SCH (15:54)
[2020-11-26] MEDS: atenoloL 25 MG TAB PO SCH (15:58)
[2020-11-26 17:38] LABS: Glucose,Whole Blood 182 mg/dL (75-99)
[2020-11-26 23:48] LABS: Glucose,Whole Blood 210 mg/dL (75-99)
[2020-11-27] MEDS: INSULIN ASPART (NovoLOG) 100 UNIT/ML VIAL SQ SCH ×4 (00:36→18:04)
[2020-11-27] MEDS: 1: MVI, ADULT NO.4 WITH VIT K 10 ML, TRACE (CONC-1ML/DOSE) 1 ML in AMINO ACID 5%-D15W+LY IV SCH ×6 (03:54→12:32)
[2020-11-27 05:45] LABS: Glucose,Whole Blood 179 mg/dL (75-99)
[2020-11-27] MEDS: LEVOTHYROXINE 25 MCG TAB PO SCH (06:06)
[2020-11-27] MEDS: SYMBICORT 160-4.5 MCG INHALER INHALATION SCH ×2 (08:37→21:13)
[2020-11-27] MEDS: CARBIDOPA-LEVODOPA 25-100 MG 1 EACH TAB PO SCH ×4 (09:44→21:01)
[2020-11-27] MEDS: lisinopriL 10 MG TAB PO SCH (09:44)
[2020-11-27] MEDS: atenoloL 25 MG TAB PO SCH (09:44)
[2020-11-27] MEDS: HEPARIN SODIUM,PORCINE/PF 5,000 UNIT/0.5 ML SYRINGE SQ SCH ×2 (09:44→21:01)
[2020-11-27] MEDS: PRIMIDONE 50 MG TAB PO SCH ×3 (09:44→21:01)
[2020-11-27] MEDS: PANTOPRAZOLE 40 MG/10 ML VIAL IVP SCH (09:45)
[2020-11-27 11:56] LABS: Glucose,Whole Blood 153 mg/dL (75-99)
--- NOTE | 2020-11-27 12:52 | P.PN ---
<Kerry Stevenson - Last Filed: 11/27/20 12:47> Subjective Progress Note Date: 11/27/20 CHIEF COMPLAINT: Abdominal pain HISTORY OF PRESENT ILLNESS: Patient is status post diagnostic laparoscopy and biopsy of retroperitoneal mass. 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 Patient denies any pain. She had one episode of vomiting last night after eating etta crackers. She was able to tolerate her breakfast and lunch today. She did have a bowel movement this morning. She is afebrile. PHYSICAL EXAM: VITAL SIGNS: Reviewed. GENERAL: Well-developed in no acute distress. HEENT: No sclera icterus. Extraocular movements grossly intact. Moist buccal mucosa. Head is atraumatic, normocephalic. ABDOMEN: Soft. Nondistended. Nontender. Incisions clean and dry NEUROLOGIC: Alert and oriented. Cranial nerves II through XII grossly intact. ASSESSMENT: 1. Retroperitoneal mass status post diagnostic laparoscopy with biopsy 2. Pathology report demonstrated adenocarcinoma. Suspect biliopancreatic or upper GI primary PLAN: -Patient can be discharged from surgical standpoint if she continues to tolerate her diet -Continue soft diet -Recommend that patient follows up with oncology service outpatient -Patient follow-up with Dr. Crain in 1 week -Encouraged patient to increase activity -Encouraged patient to use incentive spirometer -GI prophylaxis Protonix and DVT prophylaxis subcu heparin Physician Testing Shaking Shipping note has been reviewed by physician. Signing provider agrees with the documented findings, assessment, and plan of care. Objective - Vital Signs Vital signs: Vital Signs Temp 98.1 F 11/27/20 08:00 Pulse 70 11/27/20 08:00 Resp 18 11/27/20 08:00 BP 163/83 11/27/20 08:00 Pulse Ox 99 11/27/20 08:00 Intake & Output 11/26/20 11/27/20 11/27/20 18:59 06:59 18:59 Intake Total 300 Output Total 1 Balance 299 Intake: Oral 300 Output: Emesis 1 Other: # Voids 4 1 # Bowel Movements 2 # Emeses 0 - Labs CBC & Chem 7: 11/26/20 05:39 11/26/20 05:39 Labs: Abnormal Lab Results - Last 24 Hours (Table) 11/26/20 11/26/20 11/26/20 Range/Units 13:03 17:36 23:47 POC Glucose (mg/dL) 211 H 182 H 210 H (75-99) mg/dL 11/27/20 11/27/20 Range/Units 05:42 11:53 POC Glucose (mg/dL) 179 H 153 H (75-99) mg/dL Microbiology - Last 24 Hours (Table) 11/22/20 10:50 Stool Culture - Final Stool <Parish Crain - Last Filed: 11/27/20 17:52> Subjective As above. Patient had 1 episode of vomiting. Doing well today. Continue diet as tolerated. May discharge her tolerates. If any further vomiting recommend egd while she is here. Objective - Vital Signs Vital signs: Vital Signs Temp 98.3 F 11/27/20 14:00 Pulse 68 11/27/20 14:00 Resp 17 11/27/20 14:00 BP 137/69 11/27/20 14:00 Pulse Ox 97 11/27/20 14:00 Intake & Output 11/26/20 11/27/20 11/27/20 18:59 06:59 18:59 Intake Total 300 Output Total 1 Balance 299 Weight 66.224 kg Intake: Oral 300 Output: Emesis 1 Other: Voiding Method Toilet # Voids 4 1 # Bowel Movements 2 # Emeses 0 - Labs CBC & Chem 7: 11/26/20 05:39 11/26/20 05:39 Labs: Abnormal Lab Results - Last 24 Hours (Table) 11/26/20 11/27/20 11/27/20 Range/Units 23:47 05:42 11:53 POC Glucose (mg/dL) 210 H 179 H 153 H (75-99) mg/dL Assessment and Plan (1) Retroperitoneal mass Current Visit: Yes Status: Acute Code(s): R19.00 - INTRA-ABD AND PELVIC SWE LLING, MASS AND LUMP, UNSP SITE SNOMED Code(s): 75675468
[2020-11-27] MEDS: FAT EMULSION 20% 250 ML IV SCH (16:43)
--- NOTE | 2020-11-27 17:35 | P.PN ---
Subjective Progress Note Date: 11/27/20 This is a pleasant 80 years old female with past medical history of Diabetes Mellitus, Fibromyalgia, GERD/Reflux, Hyperlipidemia, Hypertension, Osteoarthritis (OA), hypothyroidism , PARKINSONS, HEART MURMUR, VARICOSE VEINS, BACK PAIN- RECEIVES INJECTIONS FROM DR STERLING 2 years ago., DIET CONTROLLED DI ABETES, HX OF ANEMIA, LOW FUNCTIONING KIDNEYS (DR COTO)., PAIN BACK- USING CANE OR WALKER. [place]. She is a patient of Dr. Ronquillo. She follows up also with Dr. Fitzpatrick and neurologist for her Parkinson disease and orthopedic for her arthritis Because of epigastric abdominal pain for the last 7-10 days, increased by eating and drinking that patient could not have food or medication over the last 2-3 days. Usually her pain is 0/10 while she is lying down but it comes up and increased when she tries to sit up. Last 2-3 days she started having vomiting. Also 3 days ago she had loose diarrhea dark-colored but that was stopped over the last 2 days. Patient was not eating and drinking well She denies chest pain or dyspnea. She denies dysuria or change in frequency or urgency with her urination but just suprapubic tenderness No smoking, no alcohol or illicit drugs per patient Vitas looks stable Showing mild leukocytosis of 13.5 K, C and INR, BMP are unremarkable. Creatinine normal 0.7. Liver enzymes slightly elevated with AST 47 and ALT 117. Total bilirubin is normal 0.9. Lipase is slightly elevated at 311. Urine analysis is suspicious for infection. Matos virus nondetected. Abdominal ultrasound showing normal right kidney. There appeared to be some gallstones. No dilated ducts In the emergency room she was receiving ceftriaxone, Levaquin, normal saline at 1 30 mL/h 11/20/2020 Patient is still complaining of from nausea vomiting, or drink abdominal pain and tenderness. No bowel movement. No significant suprapubic tenderness today after starting Rocephin yesterday. Calcitonin came back negative at 0.06. Flagyl was discontinued. Liver enzymes trending down are not elevated. He remains on ceftriaxone for UTI pending urine culture on normal saline at 75 mL/h. Surgical team were consulted for possible cholecystitis although HIDA scans showed delayed imaging but less likely acute cholecystitis per reports. GI team on the case 11/21/2020 Patient underwent laparoscopic cholecystectomy today with postop diagnosis of acute cholecystitis. During the laparoscopy and retro-peritoneal mass is identified between the stomach and the pancreas were biopsy were taken. Also CT of the pancreas ordered and CA antigen 9-19 is requested by surgery team Urine culture is negative and ceftriaxone has been stopped Patient remains nothing by mouth with gentle hydration 11/22/2020 Patient is status post laparoscopic procedure yesterday however gallbladder was not taken out, as stated retroperitoneal mass could be related to pancreatic head is found, pancreatic CAT scan showed 3.5 cm mass. Biopsy from the mass done yesterday still pending as well as CA 9-19 pending. Patient is awake feels more comfortable after NG tube was placed with dark excretion in the back most likely bile. This abdominal pain. No bowel movement or passing gases. Blood pressure slightly on the high side, repeat labs tomorrow. We'll place a PICC line and start TPN as patient looks frail and did not have good nutrition over the last few days. 11/23/2020 Patient sitting in chair not in distress. NG tube was some bile discharge. Abdominal pain control. Hemodynamically stable but blood pressure elevated 177/93 and earlier was 182/73. Patient was started on clonidine patch 0.2 mg and hydralazine 5 mg when necessary. I discussed the situation with the patient while her daughter Mrs. Mcneal was at bedside, they are aware of her abdominal mass and pending biopsy. CA antigen 9- 19 came back elevated at 70 which is double the normal frustration. Labs are stable. Liver enzymes only mildly elevated. We will check LFTs in the stool Patient continues on TPN 11/24/2020 Patient awake and alert and looks comfortable after she had a sleep last night. She is bothered from her NG tube which is a little tight at her nose and some discomfort in her right upper quadrant area. No pain. Vital signs stable. Low potassium was replaced per protocol. Retroperitoneal mass biopsy is still pending. She remains on TPN 11/25/2020 Patient is seen in follow-up this morning continues with an NG tube and states she is passing gas. Patient continues on TPN following with surgery closely. Recommend continue Accu-Cheks and sliding scale as needed. Patient was on dextrose 5% normal saline and will discontinue his blood sugars have been elevated and will continue Accu-Cheks and sliding scale. Patient scheduled to have an upper GI series x-ray done today and will await report. Blood pressure is mildly elevated and will continue with Catapres patch along with hydralazine as needed. Will resume home dose medication once oral intake improves. Patient is tolerating ice chips. 11/26/2020 Patient is seen and evaluated in follow-up this morning stating she is feeling better and tolerating oral intake being advanced per surgical recommendations to low fiber. Wean TPN. Dietitian following. Recommend to continue with Accu- Cheks and sliding scale as needed. Blood pressures have been slightly elevated and will resume home medications as she is tolerating by mouth intake. Awaiting PT/OT evaluation as patient continued to be weak. Patient is adamant about going home with family on discharge. White blood count is 9.4 with a hemoglobin of 12.9, sodium is 131 with a potassium of 3.5, BUN is 19 and creatinine is 0.50. Magnesium 1.9. 11/27/2020 She is seen and evaluated this morning feeling much better and denies any further nausea or vomiting. Patient did have one episode of emesis after starting low fiber diet and instructed to hold diet for a while and continue wi th ice chips and slowly advance as tolerated. Surgery following closely. Pathology report was positive for adenocarcinoma and family was made aware. Patient encouraged to increase activity as tolerated and continue to slowly advance diet with small bites of meals. Patient continues on TPN and working on weaning with possibility of discharge tomorrow. Repeat labs today pending. Will repeat labs in the morning. Review of systems: Constitutional: No reports of fatigue, fever, or chills Cardiovascular: No reports of chest pain or palpitations Respiratory: No reports of shortness of breath or cough GI: No reports of nausea, vomiting, or diarrhea : No reports of dysuria or retention Neurovascular: Reports generalized weakness and feels more strong all medications have been reviewed Active Medications Atenolol (Atenolol 25 Mg Tab) 25 mg PO DAILY [facility] Last Admin: 11/27/20 09:44 Dose: 25 mg Documented by: Budesonide/Formoterol Fumarate (Symbicort 160-4.5 Mcg Inhaler) 2 puff INHALATION RT-BID [facility] Last Admin: 11/27/20 08:37 Dose: Not Given Documented by: Carbidopa/Levodopa (Carbidopa-Levodopa 25-100 Mg 1 Each Tab) 1 each PO QID [facility] Last Admin: 11/27/20 12:33 Dose: 1 each Documented by: Heparin Sodium (Porcine) (Heparin Sodium,Porcine/Pf 5,000 Unit/0.5 Ml Syringe) 5,000 unit SQ Q12HR [facility] Last Admin: 11/27/20 09:44 Dose: 5,000 unit Documented by: Hydralazine HCl (Hydralazine Hcl 20 Mg/Ml 1 Ml Vial) 5 mg IVP Q6HR PRN PRN Reason: Blood Pressure - High Last Admin: 11/23/20 15:38 Dose: 5 mg Documented by: Hydromorphone HCl (Hydromorphone 0.5 Mg/0.5 Ml Syringe) 0.5 mg IVP Q3HR PRN PRN Reason: Moderate Pain Last Admin: 11/20/20 16:49 Dose: 0.5 mg Documented by: Fat Emulsion Intravenous (Lipids 20%) 250 mls @ 20.833 mls/hr IV [id number] [facility] Last Admin: 11/25/20 16:36 Dose: 20.833 mls/hr Documented by: Parenteral Vitamin Supplement 10 ml/ Zinc/Copper/Manganese/Selenium 1 ml/ Amino Ac/Electrol/Dextrose/Calcium 1,011 mls @ 50 mls/hr IV .BY DURATION [facility] Amino Ac/Electrol/Dextrose/Calcium (Clinimix E 5%-D15% Solution) 1,000 mls @ 50 mls/hr IV .BY DURATION [facility] Last Admin: 11/27/20 12:32 Dose: 50 mls/hr Documented by: Insulin Aspart (Insulin Aspart (Novolog) 100 Unit/Ml Vial) 0 unit SQ Q6HR [facility]; Protocol Last Admin: 11/27/20 12:32 Dose: 153 unit Documented by: Levothyroxine Sodium (Levothyroxine 25 Mcg Tab) 25 mcg PO DAILY@0630 [facility] Last Admin: 11/27/20 06:06 Dose: 25 mcg Documented by: Lisinopril (Lisinopril 10 Mg Tab) 10 mg PO DAILY [facility] Last Admin: 11/27/20 09:44 Dose: 10 mg Documented by: Miscellaneous Information (Potassium Replacement Protocol 1 Each Misc) 1 each MISCELLANE DAILY PRN; Protocol PRN Reason: Per Protocol Naloxone HCl (Naloxone 0.4 Mg/Ml 1 Ml Vial) 0.2 mg IV Q2M PRN PRN Reason: Opioid Reversal Ondansetron HCl (Ondansetron 4 Mg/2 Ml Vial) 4 mg IVP Q8HR PRN PRN Reason: Nausea And Vomiting Last Admin: 11/21/20 14:23 Dose: 4 mg Documented by: Pantoprazole Sodium (Pantoprazole 40 Mg/10 Ml Vial) 40 mg IVP DAILY [facility] Last Admin: 11/27/20 09:45 Dose: 40 mg Documented by: Primidone (Primidone 50 Mg Tab) 100 mg PO HS [facility] Last Admin: 11/26/20 20:06 Dose: 100 mg Documented by: Primidone (Primidone 50 Mg Tab) 50 mg PO BID@0700,1200 [facility] Last Admin: 11/27/20 12:33 Dose: 50 mg Documented by: Sodium Chloride (Sodium Chloride 0.9% Flush 10 Ml Syringe) 10 ml IV WEEKLY [facility] Sodium Chloride (Sodium Chloride 0.9% Flush 10 Ml Syringe) 20 ml IV Q4HR PRN PRN Reason: PICC Line Sodium Chloride (Sodium Chloride 0.9% Flush 10 Ml Syringe) 10 ml IV Q4HR PRN PRN Reason: PICC Line Physical exam: GENERAL: The patient is alert and oriented x3, not in any acute distress. Well developed, well nourished. HEENT: Pupils are round and equally reacting to light. EOMI. No scleral icterus. No conjunctival pallor. Normocephalic, atraumatic. No pharyngeal erythema. No thyromegaly. CARDIOVASCULAR: S1 and S2 present. No murmurs, rubs, or gallops. PULMONARY: Chest is clear to auscultation, no wheezing or crackles. ABDOMEN: Soft, no rebound tenderness or guarding, nondistended, normoactive bowel sounds. No palpable organomegaly. MUSCULOSKELETAL: No joint swelling or deformity. EXTREMITIES: No cyanosis, clubbing, or pedal edema. NEUROLOGICAL: Gross neurological examination did not reveal any focal deficits. SKIN: No rashes. no petechiae. Assessment and plan: Retroperitoneal mass, could be related to pancreatic head. 3.5 cm in size. pathology positive for adenocarcinoma moderate calorie protein malnutrition Acute urinary tract infection , resolved. Possible Acute gastroenteritis. Improved Diabetes mellitus Hypertension Fibromyalgia History of GERD Hyperlipidemia Osteoarthritis Hypothyroidism Parkinson disease Chronic back pain Chronic kidney disease and she follows up with Dr. Coto History of falls GI prophylaxis DVT prophylaxis full code Plan: Recommend continue with current medications and slowly advance diet per surgical recommendations. She had one episode of nausea with a small amount of emesis yesterday and instructed to continue with ice chips and slowly advance as tolerated to low fiber per surgical recommendations. Patient today has been tolerating diet although eating small meals and encouraged to increase slowly as tolerated. Patient continued on TPN and working on weaning. Patient is status post diagnostic laparoscopy with biopsy which confirmed a positive pathology. Patient is adamant about going home with daughter may need to arrange for some home care. Will discuss with case management. Blood pressure been slightly elevated and will resume home medications as she is tolerating by mouth intake. Repeat labs pending for today and will await results and possibly repeat tomorrow. Will repeat labs in the morning with possible discharge in 24 hours. Objective - Vital Signs Vital signs: Vital Signs Temp 98.0 F 11/27/20 05:00 Pulse 80 11/27/20 05:00 Resp 18 11/27/20 05:00 BP 121/76 11/27/20 05:00 Pulse Ox 99 11/27/20 05:00 Intake & Output 11/26/20 11/27/20 11/27/20 18:59 06:59 18:59 Intake Total 300 Output Total 1 Balance 299 Intake: Oral 300 Output: Emesis 1 Other: # Voids 4 1 # Bowel Movements 2 # Emeses 0 - Labs CBC & Chem 7: 11/26/20 05:39 11/26/20 05:39 Labs: Abnormal Lab Results - Last 24 Hours (Table) 11/26/20 11/26/20 11/26/20 Range/Units 13:03 17:36 23:47 POC Glucose (mg/dL) 211 H 182 H 210 H (75-99) mg/dL 11/27/20 Range/Units 05:42 POC Glucose (mg/dL) 179 H (75-99) mg/dL Microbiology - Last 24 Hours (Table) 11/22/20 10:50 Stool Culture - Final Stool
[2020-11-27 18:00] LABS: Glucose,Whole Blood 139 mg/dL (75-99)
[2020-11-27 20:01] LABS: Glucose,Whole Blood 135 mg/dL (75-99)
[2020-11-27 22:07] LABS: African American GFR (CKD) 98.3 (60.0-200.0); BUN/Creat Ratio 25.16 Ratio (12.00-20.00); Blood Urea Nitrogen 15.8 mg/dL (9.0-27.0); Calcium 8.7 mg/dL (8.7-10.3); Carbon Dioxide 21.1 mmol/L (21.6-31.8); Non-African American GFR(CKD) 84.8 (60.0-200.0); Phosphorus 3.9 mg/dL (2.4-5.1); Potassium 3.8 mmol/L (3.5-5.5)
[2020-11-28] MEDS: INSULIN ASPART (NovoLOG) 100 UNIT/ML VIAL SQ SCH ×3 (00:09→12:01)
[2020-11-28 00:18] LABS: Glucose,Whole Blood 169 mg/dL (75-99)
[2020-11-28 03:18] VITALS: PULSE 70
[2020-11-28 05:38] LABS: Glucose,Whole Blood 149 mg/dL (75-99)
[2020-11-28] MEDS: LEVOTHYROXINE 25 MCG TAB PO SCH (06:04)
[2020-11-28 07:46] LABS: Glucose,Whole Blood 161 mg/dL (75-99)
[2020-11-28] MEDS: 1: MVI, ADULT NO.4 WITH VIT K 10 ML, TRACE (CONC-1ML/DOSE) 1 ML in AMINO ACID 5%-D15W+LY IV SCH ×3 (08:02)
[2020-11-28] MEDS: lisinopriL 10 MG TAB PO SCH (08:07)
[2020-11-28] MEDS: atenoloL 25 MG TAB PO SCH (08:07)
[2020-11-28] MEDS: PANTOPRAZOLE 40 MG/10 ML VIAL IVP SCH (08:07)
[2020-11-28] MEDS: HEPARIN SODIUM,PORCINE/PF 5,000 UNIT/0.5 ML SYRINGE SQ SCH (08:07)
[2020-11-28] MEDS: CARBIDOPA-LEVODOPA 25-100 MG 1 EACH TAB PO SCH ×2 (08:08→12:01)
[2020-11-28] MEDS: PRIMIDONE 50 MG TAB PO SCH ×2 (08:08→12:01)
[2020-11-28 08:15] VITALS: BP 149/80; RESP 16; TEMP 98.3
[2020-11-28] MEDS: SYMBICORT 160-4.5 MCG INHALER INHALATION SCH (08:52)
[2020-11-28 10:06] LABS: African American GFR (CKD) 95.2 (60.0-200.0); Anion Gap 11.4 mmol/L (4.00-12.00); BUN/Creat Ratio 20.35 Ratio (12.00-20.00); Blood Urea Nitrogen 14.1 mg/dL (9.0-27.0); Calcium 8.7 mg/dL (8.7-10.3); Carbon Dioxide 23.7 mmol/L (21.6-31.8); Magnesium 1.9 mg/dL (1.5-2.4); Non-African American GFR(CKD) 82.1 (60.0-200.0); Phosphorus 3.9 mg/dL (2.4-5.1); Potassium 3.7 mmol/L (3.5-5.5)
[2020-11-28 11:48] LABS: Glucose,Whole Blood 175 mg/dL (75-99)
--- NOTE | 2020-11-28 13:47 | P.PN ---
<DamirKerry trujillo - Last Filed: 11/28/20 13:46> Subjective Progress Note Date: 11/28/20 CHIEF COMPLAINT: Abdominal pain HISTORY OF PRESENT ILLNESS: Patient is status post diagnostic laparoscopy and biopsy of retroperitoneal mass. 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 Patient denies any pain. She denies any nausea or vomiting. She is tolerating diet. She is having bowel movements. She is up and ambulating. She is afebrile. PHYSICAL EXAM: VITAL SIGNS: Reviewed. GENERAL: Well-developed in no acute distress. HEENT: No sclera icterus. Extraocular movements grossly intact. Moist buccal mucosa. Head is atraumatic, normocephalic. ABDOMEN: Soft. Nondistended. Nontender. Incisions clean and dry NEUROLOGIC: Alert and oriented. Cranial nerves II through XII grossly intact. ASSESSMENT: 1. Retroperitoneal mass status post diagnostic laparoscopy with biopsy 2. Pathology report demonstrated adenocarcinoma. Suspect biliopancreatic or upper GI primary PLAN: -Patient can be discharged from surgical standpoint -Continue soft diet -Recommend that patient follows up with oncology service outpatient -Patient follow-up with Dr. Crain in 1 week -Encouraged patient to increase activity -Encouraged patient to use incentive spirometer -GI prophylaxis Protonix and DVT prophylaxis subcu heparin Physician Knifer Up note has been reviewed by physician. Signing provider agrees with the documented findings, assessment, and plan of care. Objective - Vital Signs Vital signs: Vital Signs Temp 98.3 F 11/28/20 08:00 Pulse 70 11/28/20 08:00 Resp 16 11/28/20 08:00 BP 149/80 11/28/20 08:00 Pulse Ox 98 11/28/20 08:00 Intake & Output 11/27/20 11/28/20 11/28/20 18:59 06:59 18:59 Output Total 0 Balance 0 Weight 66.224 kg Output: Stool 0 Other: Voiding Method Toilet Toilet Toilet # Voids 2 1 # Bowel Movements 1 - Labs CBC & Chem 7: 11/26/20 05:39 11/28/20 06:13 Labs: Abnormal Lab Results - Last 24 Hours (Table) 11/27/20 11/27/20 11/27/20 Range/Units 05:11 17:57 20:00 Sodium (135-145) mmol/L Carbon Dioxide 21.1 L (21.6-31.8) mmol/L Anion Gap 17.00 H (4.00-12.00) mmol/L BUN/Creatinine Ratio 25.16 H (12.00-20.00) Ratio Glucose 182 H (70-110) mg/dL POC Glucose (mg/dL) 139 H 135 H (75-99) mg/dL 11/28/20 11/28/20 11/28/20 Range/Units 00:00 05:36 06:13 Sodium 134 L (135-145) mmol/L Carbon Dioxide (21.6-31.8) mmol/L Anion Gap (4.00-12.00) mmol/L BUN/Creatinine Ratio 20.35 H (12.00-20.00) Ratio Glucose 159 H (70-110) mg/dL POC Glucose (mg/dL) 169 H 149 H (75-99) mg/dL 11/28/20 11/28/20 Range/Units 07:45 11:46 Sodium (135-145) mmol/L Carbon Dioxide (21.6-31.8) mmol/L Anion Gap (4.00-12.00) mmol/L BUN/Creatinine Ratio (12.00-20.00) Ratio Glucose (70-110) mg/dL POC Glucose (mg/dL) 161 H 175 H (75-99) mg/dL <Parish Crain - Last Filed: 11/28/20 14:26> Subjective As above. Patient doing well today. No further vomiting. May discharge. Follow-up as outpatient. Objective - Vital Signs Vital signs: Vital Signs Temp 98.3 F 11/28/20 08:00 Pulse 70 11/28/20 08:00 Resp 16 11/28/20 08:00 BP 149/80 11/28/20 08:00 Pulse Ox 98 11/28/20 08:00 Intake & Output 11/27/20 11/28/20 11/28/20 18:59 06:59 18:59 Output Total 0 Balance 0 Weight 66.224 kg Output: Stool 0 Other: Voiding Method Toilet Toilet Toilet # Voids 2 1 # Bowel Movements 1 - Labs CBC & Chem 7: 11/26/20 05:39 11/28/20 06:13 Labs: Abnormal Lab Results - Last 24 Hours (Table) 10/11/27/20 11/27/20 Range/Units 05:11 17:57 20:00 Sodium (135-145) mmol/L Carbon Dioxide 21.1 L (21.6-31.8) mmol/L Anion Gap 17.00 H (4.00-12.00) mmol/L BUN/Creatinine Ratio 25.16 H (12.00-20.00) Ratio Glucose 182 H (70-110) mg/dL POC Glucose (mg/dL) 139 H 135 H (75-99) mg/dL 11/28/20 11/28/20 11/28/20 Range/Units 00:00 05:36 06:13 Sodium 134 L (135-145) mmol/L Carbon Dioxide (21.6-31.8) mmol/L Anion Gap (4.00-12.00) mmol/L BUN/Creatinine Ratio 20.35 H (12.00-20.00) Ratio Glucose 159 H (70-110) mg/dL POC Glucose (mg/dL) 169 H 149 H (75-99) mg/dL 11/28/20 11/28/20 Range/Units 07:45 11:46 Sodium (135-145) mmol/L Carbon Dioxide (21.6-31.8) mmol/L Anion Gap (4.00-12.00) mmol/L BUN/Creatinine Ratio (12.00-20.00) Ratio Glucose (70-110) mg/dL POC Glucose (mg/dL) 161 H 175 H (75-99) mg/dL Assessment and Plan (1) Retroperitoneal mass Status: Acute Code(s): R19.00 - INTRA-ABD AND PELVIC SWELLING, MASS AND LUMP, UNSP SITE SNOMED Code(s): 62743963
--- NOTE | 2020-12-02 14:13 | P.DS ---
Providers Date of admission: 11/21/20 07:34 Expected date of discharge: 11/28/20 Attending physician: Gris Aguilar Consults: 11/19/20 15:07 Consult Physician Routine Consulting Provider: Parish Crain Reason/Comments: cholelithiasis Do you want consulting provider notified?: Yes Primary care physician: Philip Ronquillo [facility] Course: Final diagnosis Retroperitoneal mass, could be related to pancreatic head. 3.5 cm in size. pathology positive for adenocarcinoma moderate calorie protein malnutrition Acute urinary tract infection , resolved. Possible Acute gastroenteritis. Improved Diabetes mellitus Hypertension Fibromyalgia History of GERD Hyperlipidemia Osteoarthritis Hypothyroidism Parkinson disease Chronic back pain Chronic kidney disease and she follows up with Dr. Coto History of falls GI prophylaxis DVT prophylaxis full code Discharge disposition Patient is being discharged in a stable condition with guarded prognosis to [facility] where she is a resident. Patient will follow-up with Dr. Ericka Ronquillo in the outpatient setting upon discharge. Patient will also follow-up with surgery, oncology, GI as needed in the outpatient setting. Total time taken is greater than 35 minutes. Hospital course This is a pleasant 80 years old female with past medical history of Diabetes Mellitus, Fibromyalgia, GERD/Reflux, Hyperlipidemia, Hypertension, Osteoarthritis (OA), hypothyroidism , PARKINSONS, HEART MURMUR, VARICOSE VEINS, BACK PAIN- RECEIVES INJECTIONS FROM DR STERLING 2 years ago., DIET CONTROLLED DIABETES, HX OF ANEMIA, LOW FUNCTIONING KIDNEYS (DR COTO)., PAIN BACK- USING CANE OR WALKER. Falls. She is a patient of Dr. Ronquillo. She follows up also with Dr. Fitzpatrick and neurologist for her Parkinson disease and orthopedic for her arthritis Because of epigastric abdominal pain for the last 7-10 days, increased by eating and drinking that patient could not have food or medication over the last 2-3 days. Usually her pain is 0/10 while she is lying down but it comes up and increased when she tries to sit up. Last 2-3 days she started having vomiting. Also 3 days ago she had loose diarrhea dark-colored but that was stopped over the last 2 days. Patient was not eating and drinking well She denies chest pain or dyspnea. She denies dysuria or change in frequency or urgency with her urination but just suprapubic tenderness No smoking, no alcohol or illicit drugs per patient Vitas looks stable Showing mild leukocytosis of 13.5 K, C and INR, BMP are unremarkable. Creatinine normal 0.7. Liver enzymes slightly elevated with AST 47 and ALT 117. Total bilirubin is normal 0.9. Lipase is slightly elevated at 311. Urine analysis is suspicious for infection. Matos virus nondetected. Abdominal ultrasound showing normal right kidney. There appeared to be some gallstones. No dilated ducts In the emergency room she was receiving ceftriaxone, Levaquin, normal saline at 1 30 mL/h 11/20/2020 Patient is still complaining of from nausea vomiting, or drink abdominal pain and tenderness. No bowel movement. No significant suprapubic tenderness today after starting Rocephin yesterday. Calcitonin came back negative at 0.06. Flagyl was discontinued. Liver enzymes trending down are not elevated. He remains on ceftriaxone for UTI pending urine culture on normal saline at 75 mL/h. Surgical team were consulted for possible cholecystitis although HIDA scans showed delayed imaging but less likely acute cholecystitis per reports. GI team on the case 11/21/2020 Patient underwent laparoscopic cholecystectomy today with postop diagnosis of acute cholecystitis. During the laparoscopy and retro-peritoneal mass is identified between the stomach and the pancreas were biopsy were taken. Also CT of the pancreas ordered and CA antigen 9-19 is requested by surgery team Urine culture is negative and ceftriaxone has been stopped Patient remains nothing by mouth with gentle hydration 11/22/2020 Patient is status post laparoscopic procedure yesterday however gallbladder was not taken out, as stated retroperitoneal mass could be related to pancreatic head is found, pancreatic CAT scan showed 3.5 cm mass. Biopsy from the mass done yesterday still pending as well as CA 9-19 pending. Patient is awake feels more comfortable after NG tube was placed with dark excretion in the back most likely bile. This abdominal pain. No bowel movement or passing gases. Blood pressure slightly on the high side, repeat labs tomorrow. We'll place a PICC line and start TPN as patient looks frail and did not have good nutrition over the last few days. 11/23/2020 Patient sitting in chair not in distress. NG tube was some bile discharge. Abdominal pain control. Hemodynamically stable but blood pressure elevated 177/93 and earlier was 182/73. Patient was started on clonidine patch 0.2 mg and hydralazine 5 mg when necessary. I discussed the situation with the patient while her daughter Mrs. Mcneal was at bedside, they are aware of her abdominal mass and pending biopsy. CA antigen 9- 19 came back elevated at 70 which is double the normal frustration. Labs are stable. Liver enzymes only mildly elevated. We will check LFTs in the stool Patient continues on TPN 11/24/2020 Patient awake and alert and looks comfortable after she had a sleep last night. She is bothered from her NG tube which is a little tight at her nose and some discomfort in her right upper quadrant area. No pain. Vital signs stable. Low potassium was replaced per protocol. Retroperitoneal mass biopsy is still pending. She remains on TPN 11/25/2020 Patient is seen in follow-up this morning continues with an NG tube and states she is passing gas. Patient continues on TPN following with surgery closely. Recommend continue Accu-Cheks and sliding scale as needed. Patient was on dextrose 5% normal saline and will discontinue his blood sugars have been elevated and will continue Accu-Cheks and sliding scale. Patient scheduled to have an upper GI series x-ray done today and will await report. Blood pressure is mildly elevated and will continue with Catapres patch along with hydralazine as needed. Will resume home dose medication once oral intake improves. Patient is tolerating ice chips. 11/26/2020 Patient is seen and evaluated in follow-up this morning stating she is feeling better and tolerating oral intake being advanced per surgical recommendations to low fiber. Wean TPN. Dietitian following. Recommend to continue with Accu- Cheks and sliding scale as needed. Blood pressures have been slightly elevated and will resume home medications as she is tolerating by mouth intake. Awaiting PT/OT evaluation as patient continued to be weak. Patient is adamant about going home with family on discharge. White blood count is 9.4 with a hemoglobin of 12.9, sodium is 131 with a potassium of 3.5, BUN is 19 and creatinine is 0.50. Magnesium 1.9. 11/27/2020 She is seen and evaluated this morning feeling much better and denies any further nausea or vomiting. Patient did have one episode of emesis after starting low fiber diet and instructed to hold diet for a while and continue with ice chips and slowly advance as tolerated. Surgery following closely. Pathology report was positive for adenocarcinoma and family was made aware. Patient encouraged to increase activity as tolerated and continue to slowly advance diet with small bites of meals. Patient continues on TPN and working on weaning with possibility of discharge tomorrow. Repeat labs today pending. Will repeat labs in the morning. This is a 63-year-old male who was recently admitted and was being closely monitored. 11/28/2020 Patient is seen and evaluated in follow-up this morning with no acute overnight issues noted. TPN has been weaned and patient tolerating diet and recommend to continue with low fiber and slowly advance as tolerated. Patient will need close outpatient follow-up with oncology along with general surgery and her primary care provider. Patient states she will be going back home with her daughter on discharge. Currently no reports of chest pain, shortness of breath, or palpitations. Patient is afebrile. No reports of nausea or vomiting and patient is tolerating diet. Patient will be discharged home today. On exam vital signs are stable. Cardio S1, S2 are muffled. Respiratory system shows diminished breath sounds at the bases with no wheezing or rhonchi noted. Abdomen is soft and nontender. Nervous system shows no focal deficits. Please refer to medication reconciliation sheet for a list of medications. Patient Condition at Discharge: Stable Plan - Discharge Summary New Discharge Prescriptions: New Ondansetron Odt [Zofran Odt] 4 mg PO Q8HR PRN #12 tab PRN Reason: Nausea Budesonide-Formot 160-4.5 Mcg [Symbicort 160-4.5 Mcg Inhaler] 2 puff INHALATION RT-BID 30 Days #1 gm Continue PARoxetine HCL [Paroxetine HCl] 20 mg PO DAILY Levothyroxine Sodium [Synthroid] 25 mcg PO DAILY Primidone [Mysoline] 50 mg PO BID@0700,1200 Carbidopa-Levodopa 25-100 mg [Sinemet 25-100 mg] 1 tab PO QID Omeprazole [PriLOSEC] 20 mg PO BID atenoloL [Tenormin] 25 mg PO DAILY Folic Acid 0.4 mg PO DAILY Cholecalciferol [Vitamin D3 (10 Mcg = 400 Iu)] 400 unit PO DAILY calcitrioL [Rocaltrol] 0.25 mcg PO SOARES metFORMIN HCL ER [Glucophage XR] 1,000 mg PO HS lisinopriL 10 mg PO DAILY Primidone [Mysoline] 100 mg PO HS Calcium Carbonate [Tums] 1,000 mg PO QID PRN PRN Reason: Heartburn metFORMIN HCL ER [Glucophage XR] 500 mg PO DAILY Aspirin EC [Ecotrin Low Dose] 81 mg PO HS Gabapentin 600 mg PO TID Discontinued Atorvastatin [Lipitor] 10 mg PO HS Discharge Medication List Levothyroxine Sodium [Synthroid] 25 mcg PO DAILY 09/19/13 [History] PARoxetine HCL [Paroxetine HCl] 20 mg PO DAILY 09/19/13 [History] Carbidopa-Levodopa 25-100 mg [Sinemet 25-100 mg] 1 tab PO QID 03/29/14 [History] Omeprazole [PriLOSEC] 20 mg PO BID 03/29/14 [History] Primidone [Mysoline] 50 mg PO BID@0700,1200 03/29/14 [History] atenoloL [Tenormin] 25 mg PO DAILY 03/29/14 [History] Cholecalciferol [Vitamin D3 (10 Mcg = 400 Iu)] 400 unit PO DAILY 08/11/18 [History] Folic Acid 0.4 mg PO DAILY 08/11/18 [History] calcitrioL [Rocaltrol] 0.25 mcg PO SOARES 08/11/18 [History] Aspirin EC [Ecotrin Low Dose] 81 mg PO HS 10/11/20 [History] Gabapentin 600 mg PO TID 10/11/20 [History] Primidone [Mysoline] 100 mg PO HS 10/11/20 [History] lisinopriL 10 mg PO DAILY 10/11/20 [History] metFORMIN HCL ER [Glucophage XR] 1,000 mg PO HS 10/11/20 [History] metFORMIN HCL ER [Glucophage XR] 500 mg PO DAILY 10/11/20 [History] Calcium Carbonate [Tums] 1,000 mg PO QID PRN 11/18/20 [History] Budesonide-Formot 160-4.5 Mcg [Symbicort 160-4.5 Mcg Inhaler] 2 puff INHALATION RT-BID 30 Days #1 gm 11/28/20 [Rx] Ondansetron Odt [Zofran Odt] 4 mg PO Q8HR PRN #12 tab 11/28/20 [Rx] Follow up Appointment(s)/Referral(s): Parish Crain MD [Medical Doctor] - 1 Week Ignacio Eastman MD [STAFF PHYSICIAN] - 1 Week Tumma,Nelly, MD [STAFF PHYSICIAN] - As Needed Philip Ronquillo DO [Primary Care Provider] - 1-2 days Ambulatory/Diagnostic Orders: Complete Blood Count w/diff [LAB.AMB] Time Frame: 3 Days, Location: None Selected Patient Instructions/Handouts: Pancreatitis (DC) Activity/Diet/Wound Care/Special Instructions: Cavity Limited until follow-up Continue with consistent carbohydrate low fiber diet and slowly advance as tolerated Follow-up with surgery in 1 week along with oncology Recommend repeat labs in 2-3 days to monitor electrolytes Discharge Disposition: HOME SELF-CARE
== END 2020-11-28 13:01 | disposition home or self-care (01) | DRG 436 ==
LOC: EC 14:17 → 6NMEDSUR 11-19 01:38 → OBSVTOIN 11-21 07:34
PROVIDERS: ADMIT Hospitalist; ATTEND Hospitalist
PROC: 0DBW4ZX Excision of Peritoneum, Percutaneous Endoscopic Approach, Diagnostic (ICD-10-PCS; 2020-11-21)
PROC: 0D9770Z Drainage of Stomach, Pylorus with Drainage Device, Via Natural or Artificial Opening (ICD-10-PCS; 2020-11-22)
PROC: 02HV33Z Insertion of Infusion Device into Superior Vena Cava, Percutaneous Approach (ICD-10-PCS; 2020-11-22)
PROC: B5181ZA Fluoroscopy of Superior Vena Cava using Low Osmolar Contrast, Guidance (ICD-10-PCS; 2020-11-22)
PROC: B548ZZA Ultrasonography of Superior Vena Cava, Guidance (ICD-10-PCS; 2020-11-22)
PROC: 3E0336Z Introduction of Nutritional Substance into Peripheral Vein, Percutaneous Approach (ICD-10-PCS; principal; 2020-11-23)
DX: C25.0 Malignant neoplasm of head of pancreas (principal); E44.0 Moderate protein-calorie malnutrition; N39.0 Urinary tract infection, site not specified; K80.00 Calculus of gallbladder with acute cholecystitis without obstruction; E11.22 Type 2 diabetes mellitus with diabetic chronic kidney disease; N18.9 Chronic kidney disease, unspecified; M79.7 Fibromyalgia; Z20.822 Contact with and (suspected) exposure to COVID-19; I12.9 Hypertensive chronic kidney disease with stage 1 through stage 4 chronic kidney disease, or unspecified chronic kidney disease; K52.9 Noninfective gastroenteritis and colitis, unspecified; E03.9 Hypothyroidism, unspecified; E78.5 Hyperlipidemia, unspecified; F32.9 Major depressive disorder, single episode, unspecified; G20 Parkinson's disease; I83.90 Asymptomatic varicose veins of unspecified lower extremity; G89.29 Other chronic pain; K21.9 Gastro-esophageal reflux disease without esophagitis; M19.90 Unspecified osteoarthritis, unspecified site; Z91.81 History of falling; Z68.28 Body mass index [BMI] 28.0-28.9, adult; Z79.84 Long term (current) use of oral hypoglycemic drugs; Z79.890 Hormone replacement therapy; Z90.710 Acquired absence of both cervix and uterus; Z90.49 Acquired absence of other specified parts of digestive tract; Z96.612 Presence of left artificial shoulder joint; Z96.653 Presence of artificial knee joint, bilateral; Z79.899 Other long term (current) drug therapy; Z91.041 Radiographic dye allergy status; Z88.0 Allergy status to penicillin; Z91.013 Allergy to seafood
CPT/HCPCS: 36415; 36573; 74160; 74240; 76705; 78226; 80048; 80053; 80076; 81001; 82330; 83690; 83735; 84100; 84132; 84145; 84478; 85025; 85610; 85730; 86301; 87045; 87046; 87086; 87324; 87635; 88305; 88341; 88342; 94640; 96361; 96365; 96367; 96375; 99285

== ENCOUNTER 2020-12-27 15:33 | Emergency (ER) | payer MEDICARE, BC ==
[2020-12-27 16:41] VITALS: BP 102/76; PULSE 56; RESP 20; TEMP 99
--- NOTE | 2020-12-27 21:35 | ED ---
Recheck HPI - General Chief Complaint: Recheck/Abnormal Lab/Rx Stated Complaint: Recheck Time Seen by Provider: 12/27/20 20:49 Source: patient, family, RN notes reviewed Mode of arrival: wheelchair Limitations: no limitations - History of Present Illness Initial Comments: Patient is an 80-year-old female with history of diabetes, hypertension, presenting to the emergency department because her PEG tube is clogged. Patient had recent placement of a PEG tube down at [facility] about 1 week ago, was discharged yesterday. She states that the visiting nurse has been trying all day to get it to run however it has been clogged. She does receive medications to this tube as well. She is in no acute distress, she has no abdominal pain, she states she is fine otherwise. She denies fevers or chills, no chest pain or shortness of breath. There are no further complaints. Her vital signs are stable upon arrival. - Related Data Home Medications Medication Instructions Recorded Confirmed Levothyroxine Sodium [Synthroid] 25 mcg PO DAILY 09/19/13 11/18/20 PARoxetine HCL [Paroxetine HCl] 20 mg PO DAILY 09/19/13 11/18/20 Carbidopa-Levodopa 25-100 mg 1 tab PO QID 03/29/14 11/18/20 [Sinemet 25-100 mg] Omeprazole [PriLOSEC] 20 mg PO BID 03/29/14 11/18/20 Primidone [Mysoline] 50 mg PO BID@0700,1200 03/29/14 11/18/20 atenoloL [Tenormin] 25 mg PO DAILY 03/29/14 11/18/20 Cholecalciferol [Vitamin D3 (10 400 unit PO DAILY 08/11/18 11/18/20 Mcg = 400 Iu)] Folic Acid 0.4 mg PO DAILY 08/11/18 11/18/20 calcitrioL [Rocaltrol] 0.25 mcg PO SOARES 08/11/18 11/18/20 Aspirin EC [Ecotrin Low Dose] 81 mg PO HS 10/11/20 11/18/20 Gabapentin 600 mg PO TID 10/11/20 11/18/20 Primidone [Mysoline] 100 mg PO HS 10/11/20 11/18/20 lisinopriL 10 mg PO DAILY 10/11/20 11/18/20 metFORMIN HCL ER [Glucophage XR] 1,000 mg PO HS 10/11/20 11/18/20 metFORMIN HCL ER [Glucophage XR] 500 mg PO DAILY 10/11/20 11/18/20 Calcium Carbonate [Tums] 1,000 mg PO QID PRN 11/18/20 11/18/20 Previous Rx's Medication Instructions Recorded Budesonide-Formot 160-4.5 Mcg 2 puff INHALATION RT-BID 30 Days 11/28/20 [Symbicort 160-4.5 Mcg Inhaler] #1 gm Ondansetron Odt [Zofran Odt] 4 mg PO Q8HR PRN #12 tab 11/28/20 Allergies Allergy/AdvReac Type Severity Reaction Status Date / Time shellfish derived [Shellfish] Allergy Unknown Rash/Hives Verified 12/27/20 16:41 iodine Allergy Rash/Hives Verified 12/27/20 16:41 Penicillins Allergy Rash/Hives Verified 12/27/20 16:41 Review of Systems ROS Statement: Those systems with pertinent positive or pertinent negative responses have been documented in the HPI. ROS Other: All systems not noted in ROS Statement are negative. Past Medical History Past Medical History: Diabetes Mellitus, Fibromyalgia, GERD/Reflux, Hyperlipidemia, Hypertension, Osteoarthritis (OA), Thyroid Disorder Additional Past Medical History / Comment(s): PARKINSONS, HEART MURMUR, VARICOSE VEINS, BACK PAIN- RECEIVES INJECTIONS FROM DR STERLING 2 years ago., DIET CONTROLLED DIABETES, HX OF ANEMIA, LOW FUNCTIONING KIDNEYS (DR COTO)., PAIN BACK- USING CANE OR WALKER. Falls. History of Any Multi-Drug Resistant Organisms: None Reported Past Surgical History: Bladder Surgery, Hysterectomy, Orthopedic Surgery Additional Past Surgical History / Comment(s): BILAT KNEE REPLACEMENTS/BILATERAL HIPS, LT SHOULDER REPLACEMENT/TOTAL RT ELBOW REPLACEMENT/BILAT CATARACT REMOVAL Past Anesthesia/Blood Transfusion Reactions: No Reported Reaction Past Psychological History: Depression Smoking Status: Never smoker Past Alcohol Use History: None Reported Past Drug Use History: None Reported - Past Family History Father Family Medical History: Cancer Additional Family Medical History / Comment(s): PROSTATE CANCER Sister(s) Family Medical History: Cancer Additional Family Medical History / Comment(s): SISTERS- BREAST AND LUNG CANCER General Exam - General Exam Comments Initial Comments: GENERAL: Patient is well-developed and well-nourished. Patient is nontoxic and in no acute distress. HEAD: Atraumatic, normocephalic. EYES: Pupils equal round and reactive to light, extraocular movements intact, sclera anicteric, conjunctiva are normal. Eyelids were unremarkable. LUNGS: Unlabored respirations. Breath sounds clear to auscultation bilaterally and equal. No wheezes rales or rhonchi. HEART: Regular rate and rhythm without murmurs, rubs or gallops. ABDOMEN: Soft, nontender, normoactive bowel sounds. No guarding, no rebound. No masses appreciated. PEG tube present, no erythema or signs of infection, no drainage. : Deferred MUSCULOSKELETAL: Normal extremities with adequate strength and normal range of motion, no pitting or edema. No clubbing or cyanosis. NEUROLOGICAL: Patient is alert and oriented x 3. PSYCH: Normal mood, normal affect. SKIN: Warm, Dry, normal turgor, no rashes or lesions noted. Limitations: no limitations Course Vital Signs 12/27/20 16:39 Temperature 99 F Pulse Rate 56 L Respiratory 20 Rate Blood Pressure 102/76 O2 Sat by Pulse 96 Oximetry Medical Decision Making - Medical Decision Making Patient is an 80-year-old female sent in for clogged PEG tube. We were able to flush the tube without complications. She is stable for discharge. Disposition Clinical Impression: PEG tube malfunction Disposition: HOME SELF-CARE Condition: Stable Instructions (If sedation given, give patient instructions): How to Use and Care for Your PEG Tube (ED) Additional Instructions: Please return to the Emergency Department if symptoms worsen or any other concerns. Follow-up with your visiting nurses/regular physician. Is patient prescribed a controlled substance at d/c from ED?: No Referrals: Philip Ronquillo DO [Primary Care Provider] - 1-2 days Time of Disposition: 21:34
== END 2020-12-27 21:46 | disposition home or self-care (01) ==
LOC: EC 15:33
DX: K94.23 Gastrostomy malfunction (principal); E11.9 Type 2 diabetes mellitus without complications; E78.5 Hyperlipidemia, unspecified; I10 Essential (primary) hypertension; K21.9 Gastro-esophageal reflux disease without esophagitis; M19.90 Unspecified osteoarthritis, unspecified site; M79.7 Fibromyalgia; E07.9 Disorder of thyroid, unspecified; Z79.82 Long term (current) use of aspirin; Z79.84 Long term (current) use of oral hypoglycemic drugs; Z88.0 Allergy status to penicillin; Z91.013 Allergy to seafood; Z88.8 Allergy status to other drugs, medicaments and biological substances; Z79.890 Hormone replacement therapy; Z79.899 Other long term (current) drug therapy
CPT/HCPCS: 99282

== ENCOUNTER 2020-12-30 08:51 | Emergency (ER) | payer MEDICARE, BC ==
[2020-12-30 08:59] VITALS: TEMP 98.8
[2020-12-30] MEDS ORDERED: SODIUM CHLORIDE 0.9% 1,000 ML IV STA (09:49)
--- NOTE | 2020-12-30 10:49 | ED ---
Weakness HPI <Samuel Suarez - Last Filed: 12/30/20 16:28> - General Source: patient, EMS Mode of arrival: EMS Limitations: no limitations <Alysa Espinoza - Last Filed: 01/02/21 00:54> - General Chief complaint: Weakness Stated complaint: weakness Time Seen by Provider: 12/30/20 08:54 - History of Present Illness Initial comments: 80-year-old female with past medical history of diabetes, hypertension, hyperlipidemia who presents to the emergency department with increased weakness and low blood pressure. Patient is hard of hearing however is able to answer questions. Sister and daughter at bedside and provided majority of the history. They state that the patient was recently diagnosed with a large abdominal mass. She was transferred down to [facility] for GI evaluation. She was ho spitalized from the end of November through the middle of December. They attempted to place a bile duct stent and liver stent however both of these failed. They instructed that they had no further treatment options for the patient and she was discharged home. They have yet to meet with oncology as they state that the patient has either been too sick to be seen by them or she had other procedures planned by GI. She has become weaker at home. They state that within the past 12 hours the patient has had significant decompensation. They checked her sugar at home and was noted to be extremely high. The patient only takes nutrition through tube feeds. They state that the patient has not been tolerating them well and it goes right through her. She has had significant diarrhea. Her mentation has been waning. No recorded fevers. The patient has not sustained any injuries. Family is considering palliative versus hospice care at this time. (Alysa Espinoza) - Related Data Home Medications Medication Instructions Recorded Confirmed Levothyroxine Sodium [Synthroid] 25 mcg PEG/G-TUBE DAILY 09/19/13 12/30/20 PARoxetine HCL [Paroxetine HCl] 20 mg PEG/G-TUBE DAILY 09/19/13 12/30/20 Carbidopa-Levodopa 25-100 mg 1 tab PEG/G-TUBE QID 03/29/14 12/30/20 [Sinemet 25-100 mg] atenoloL [Tenormin] 25 mg PEG/G-TUBE DAILY 03/29/14 12/30/20 Folic Acid 0.4 mg PEG/G-TUBE DAILY 08/11/18 12/30/20 Aspirin EC [Ecotrin Low Dose] 81 mg PEG/G-TUBE DAILY 10/11/20 12/30/20 Primidone [Mysoline] 50 mg PEG/G-TUBE QID 10/11/20 12/30/20 Atorvastatin [Lipitor] 10 mg PEG/G-TUBE DAILY 12/30/20 12/30/20 Calcitriol 1mcg/Ml 0.3 mcg PEG/G-TUBE DAILY 12/30/20 12/30/20 Esomeprazole Magnesium [NexIUM] 40 mg PEG/G-TUBE BID 12/30/20 12/30/20 Gabapentin 250mg/5ml 500 mg PEG/G-TUBE HS 12/30/20 12/30/20 Multivitamins, Thera [Multivitamin 1 tab PEG/G-TUBE DAILY 12/30/20 12/30/20 (formulary)] Thiamine [Vitamin B-1] 100 mg PEG/G-TUBE DAILY 12/30/20 12/30/20 metFORMIN HCL 500 mg PEG/G-TUBE BID 12/30/20 12/30/20 Allergies Allergy/AdvReac Type Severity Reaction Status Date / Time shellfish derived [Shellfish] Allergy Unknown Rash/Hives Verified 12/30/20 09:55 iodine Allergy Rash/Hives Verified 12/30/20 09:55 Penicillins Allergy Rash/Hives Verified 12/30/20 09:55 Review of Systems ROS Other: All systems not noted in ROS Statement are negative. <Samuel Suarez - Last Filed: 12/30/20 16:28> ROS Other: All systems not noted in ROS Statement are negative. <Alysa Espinoza - Last Filed: 01/02/21 00:54> ROS Statement: Those systems with pertinent positive or pertinent negative responses have been documented in the HPI. Past Medical History Past Medical History: Diabetes Mellitus, Fibromyalgia, GERD/Reflux, Hyperlipidemia, Hypertension, Osteoarthritis (OA), Thyroid Disorder Additional Past Medical History / Comment(s): PARKINSONS, HEART MURMUR, VARICOSE VEINS, BACK PAIN- RECEIVES INJECTIONS FROM DR STERLING 2 years ago., DIET CONTROLLED DIABETES, HX OF ANEMIA, LOW FUNCTIONING KIDNEYS (DR COTO)., PAIN BACK- USING CANE OR WALKER. Falls. History of Any Multi-Drug Resistant Organisms: None Reported Past Surgical History: Bladder Surgery, Hysterectomy, Orthopedic Surgery Additional Past Surgical History / Comment(s): BILAT KNEE REPLACEMENTS/BILATERAL HIPS, LT SHOULDER REPLACEMENT/TOTAL RT ELBOW REPLACEMENT/BILAT CATARACT REMOVAL Past Anesthesia/Blood Transfusion Reactions: No Reported Reaction Past Psychological History: Depression Smoking Status: Never smoker Past Alcohol Use History: None Reported Past Drug Use History: None Reported - Past Family History Father Family Medical History: Cancer Additional Family Medical History / Comment(s): PROSTATE CANCER Sister(s) Family Medical History: Cancer Additional Family Medical History / Comment(s): SISTERS- BREAST AND LUNG CANCER <Alysa Espinoza - Last Filed: 01/02/21 00:54> General Exam Limitations: altered mental status General appearance: lethargic, cachectic Eye exam: Present: scleral icterus ENT exam: Present: mucous membranes dry Neck exam: Present: normal inspection. Absent: tenderness, meningismus, lymphadenopathy Respiratory exam: Present: normal lung sounds bilaterally. Absent: respiratory distress, wheezes, rales, rhonchi, stridor Cardiovascular Exam: Present: normal rhythm, tachycardia GI/Abdominal exam: Present: distended, other (liver stent RUQ, feeding tube - LUQ) Neurological exam: Present: altered, CN II-XII intact Psychiatric exam: Present: flat affect Skin exam: Present: other (jaundiced) <Alysa Espinoza - Last Filed: 01/02/21 00:54> Course <Samuel Suarez - Last Filed: 12/30/20 16:28> Vital Signs 12/30/20 12/30/20 12/30/20 08:55 10:58 12:30 Temperature 98.8 F Pulse Rate 110 H 110 H 109 H Respiratory 20 20 18 Rate Blood Pressure 78/54 92/54 86/59 O2 Sat by Pulse 95 99 94 L Oximetry 12/30/20 12/30/20 12/30/20 13:00 14:30 15:40 Temperature Pulse Rate 107 H 102 H 103 H Respiratory 20 18 18 Rate Blood Pressure 92/62 95/58 96/60 O2 Sat by Pulse 95 93 L 94 L Oximetry 12/30/20 12/30/20 17:40 18:41 Temperature Pulse Rate 104 H 99 Respiratory 18 16 Rate Blood Pressure 106/66 102/64 O2 Sat by Pulse 96 94 L Oximetry - Reevaluation(s) Reevaluation #1: 12/30/20 16:29 The patient family have decided to have home hospice. Hospice has been set the patient be discharged home with home hospice care. (Samuel Suarez) EKG Findings - EKG Comments: EKG Findings:: EKG demonstrates a sinus tachycardia with a ventricular rate of 109. IN interval is 144. QRS 78. QTC of 500. She has ST depression in V2 through V6. Acute ST segment elevations <Alysa Espinoza - Last Filed: 01/02/21 00:54> Medical Decision Making - Lab Data Result diagrams: 12/30/20 10:51 12/30/20 10:51 <Samuel Suarez - Last Filed: 12/30/20 16:28> - Lab Data Result diagrams: 12/30/20 10:51 12/30/20 10:51 <Alysa Espinoza - Last Filed: 01/02/21 00:54> - Medical Decision Making Upon arrival patient was placed into room 12. Thorough history and physical exam is performed. Patient is placed on continuous pulse ox and cardiac monitoring. IV is established using ultrasound guidance. She is given a liter bolus of normal saline for her hypotension and started on 75 mL per hour. Laboratory studies are reviewed and demonstrates a sodium of 129. Patient in renal failure with a creatinine of 3.8. Glucose 442. Anion gap was 21. CO2 at 33. Lactic acid 3.3. Bilirubin elevated at 4.7. Troponin 0.129. Chest x-ray was performed which demonstrates a high density nodularity at the right apex probably represents a calcified granuloma. Hypoventilatory changes. The results are discussed with family. Informed that the patient does have significant worsening in her kidney function S elevation in her troponin level. Family does request cardiology consultation to see if there is any further treatment options from their standpoint. Because of this I did call and discuss the patient's care with Lexis honeycutt who states that she would be available to come to the emergency department to assess the patient. While awaiting canvases arrival the family does change her mind at this time. They state that they are ready for hospice care as they know the futility and continuing with the patient's treatments. They're requesting home hospice. Our hospice nurses made aware the patient's presence and home hospice will be set up at this time. Case management is aware of the patient's condition. Case is signed out to Dr. Suarez who will discharge the patient once all arrangements are made. (Alysa Espinoza) - Lab Data Lab Results 12/30/20 12/30/20 12/30/20 Range/Units 10:51 10:51 10:51 WBC 8.9 (3.8-10.6) k/uL RBC 4.14 (3.80-5.40) m/uL Hgb 12.9 (11.4-16.0) gm/dL Hct 37.6 (34.0-46.0) % MCV 90.7 (80.0-100.0) fL MCH 31.2 (25.0-35.0) pg MCHC 34.4 (31.0-37.0) g/dL RDW 14.1 (11.5-15.5) % Plt Count 279 (150-450) k/uL MPV 9.3 Neutrophils % (Manual) 80 % Band Neuts % (Manual) 11 % Lymphocytes % (Manual) 4 % Monocytes % (Manual) 4 % Eosinophils % (Manual) 1 % Metamyelocytes % 2 % Neutrophils # (Manual) 8.00 H (1.3-7.7) k/uL Lymphocytes # (Manual) 0.36 L (1.0-4.8) k/uL Monocytes # (Manual) 0.36 (0-1.0) k/uL Eosinophils # (Manual) 0.09 (0-0.7) k/uL Metamyelocytes # (Man) 0.18 H (0) k/uL Nucleated RBCs 0 (0-0) /100 WBC Manual Slide Review Performed Toxic Granulation Present PT 12.9 H (9.0-12.0) sec INR 1.3 H (<1.2) APTT 25.5 (22.0-30.0) sec Sodium 129 L (137-145) mmol/L Potassium 3.8 (3.5-5.1) mmol/L Chloride 75 L (98-107) mmol/L Carbon Dioxide 33 H (22-30) mmol/L Anion Gap 21 mmol/L BUN 85 H (7-17) mg/dL Creatinine 3.85 H (0.52-1.04) mg/dL Est GFR (CKD-EPI)AfAm 12 (>60 ml/min/1.73 sqM) Est GFR (CKD-EPI)NonAf 10 (>60 ml/min/1.73 sqM) Glucose 442 H (74-99) mg/dL Lactic Ac Sepsis Rflx Plasma Lactic Acid Jude (0.7-2.0) mmol/L Calcium 8.0 L (8.4-10.2) mg/dL Magnesium 2.4 H (1.6-2.3) mg/dL Total Bilirubin 4.7 H (0.2-1.3) mg/dL Conjugated Bilirubin 1.7 H (0.0-0.3) mg/dL Unconjugated Bilirubin 0.9 (0.0-1.1) mg/dL Delta Bilirubin 2.1 H (0.0-0.2) mg/dL AST 69 H (14-36) U/L ALT 56 H (4-34) U/L Alkaline Phosphatase 891 H (38-126) U/L Troponin I (0.000-0.034) ng/mL Total Protein 6.2 L (6.3-8.2) g/dL Albumin 3.2 L (3.5-5.0) g/dL Lipase 336 H (23-300) U/L 12/30/20 12/30/20 12/30/20 Range/Units 10:51 10:51 11:30 WBC (3.8-10.6) k/uL RBC (3.80-5.40) m/uL Hgb (11.4-16.0) gm/dL Hct (34.0-46.0) % MCV (80.0-100.0) fL MCH (25.0-35.0) pg MCHC (31.0-37.0) g/dL RDW (11.5-15.5) % Plt Count (150-450) k/uL MPV Neutrophils % (Manual) % Band Neuts % (Manual) % Lymphocytes % (Manual) % Monocytes % (Manual) % Eosinophils % (Manual) % Metamyelocytes % % Neutrophils # (Manual) (1.3-7.7) k/uL Lymphocytes # (Manual) (1.0-4.8) k/uL Monocytes # (Manual) (0-1.0) k/uL Eosinophils # (Manual) (0-0.7) k/uL Metamyelocytes # (Man) (0) k/uL Nucleated RBCs (0-0) /100 WBC Manual Slide Review Toxic Granulation PT (9.0-12.0) sec INR (<1.2) APTT (22.0-30.0) sec Sodium (137-145) mmol/L Potassium (3.5-5.1) mmol/L Chloride (98-107) mmol/L Carbon Dioxide (22-30) mmol/L Anion Gap mmol/L BUN (7-17) mg/dL Creatinine (0.52-1.04) mg/dL Est GFR (CKD-EPI)AfAm (>60 ml/min/1.73 sqM) Est GFR (CKD-EPI)NonAf (>60 ml/min/1.73 sqM) Glucose (74-99) mg/dL Lactic Ac Sepsis Rflx Y Plasma Lactic Acid Jude 3.3 H* (0.7-2.0) mmol/L Calcium (8.4-10.2) mg/dL Magnesium (1.6-2.3) mg/dL Total Bilirubin (0.2-1.3) mg/dL Conjugated Bilirubin (0.0-0.3) mg/dL Unconjugated Bilirubin (0.0-1.1) mg/dL Delta Bilirubin (0.0-0.2) mg/dL AST (14-36) U/L ALT (4-34) U/L Alkaline Phosphatase (38-126) U/L Troponin I 0.129 H* (0.000-0.034) ng/mL Total Protein (6.3-8.2) g/dL Albumin (3.5-5.0) g/dL Lipase (23-300) U/L Disposition Is patient prescribed a controlled substance at d/c from ED?: No <Samuel Suarez - Last Filed: 12/30/20 16:28> <Alysa Espinoza - Last Filed: 01/02/21 00:54> Clinical Impression: Pancreatic mass, Hyperglycemia, Hypotension, Adenocarcinoma Disposition: HOME SELF-CARE Condition: Poor Referrals: [facility] [NON-STAFF] - 1-2 days Philip Ronquillo DO [Primary Care Provider] - 1-2 days
[2020-12-30 11:21] LABS: HCT 37.6 % (34.0-46.0); HGB 12.9 gm/dL (11.4-16.0); MCH 31.2 pg (25.0-35.0); MCHC 34.4 g/dL (31.0-37.0); MCV 90.7 fL (80.0-100.0); Mean Platelet Volume 9.3; Platelet Count 279 k/uL (150-450); RBC 4.14 m/uL (3.80-5.40); RDW 14.1 % (11.5-15.5); WBC 8.9 k/uL (3.8-10.6)
[2020-12-30 11:29] LABS: Albumin 3.2 g/dL (3.5-5.0); Bilirubin, Conjugated 1.7 mg/dL (0.0-0.3); Bilirubin, Delta 2.1 mg/dL (0.0-0.2); Bilirubin,Unconjugated 0.9 mg/dL (0.0-1.1); Magnesium 2.4 mg/dL (1.6-2.3); Potassium 3.8 mmol/L (3.5-5.1); Total Bilirubin 4.7 mg/dL (0.2-1.3); Total Protein 6.2 g/dL (6.3-8.2)
--- NOTE | 2020-12-30 11:38 | XR ---
EXAMINATION TYPE: XR chest 1V portable DATE OF EXAM: 12/30/2020 Comparison: None Clinical History: 80-year-old female weak Findings: Resurfacing left shoulder to plasty partially visualized. Low lung volumes and crowded vascular tracy ngs. Heart upper limits of normal in size. 6 some bibasilar opacities have a somewhat strandy appeara nce. Otherwise, no consolidation or pleural effusion. High density focus at the right apex. Impression: 1. Hypoventilatory changes. Mild bibasilar opacities have a somewhat strandy appearance suggesting ar eas of atelectasis rather than early infiltrates. Correlate with patient's symptoms. 2. High density nodularity at the right apex probably represents a calcified granuloma or bone island within the rib. 6-8 week follow-up radiograph recommended to reassess.
[2020-12-30 11:53] LABS: Partial Thromboplastin Time 25.5 sec (22.0-30.0)
[2020-12-30 12:28] LABS: Band Neutrophils % 11 %; Eosinophils # (M) 0.09 k/uL (0-0.7); Lymphocytes # (M) 0.36 k/uL (1.0-4.8); Metamyelocytes # (M) 0.18 k/uL (0); Metamyelocytes % 2 %; Monocytes # (M) 0.36 k/uL (0-1.0); Neutrophils % (M) 80 %; Nucleated Red Blood Cells 0 /100 WBC (0-0); Total Cells Counted 200; Toxic Granulation Present
[2020-12-30 12:39] LABS: INR 1.3 (<1.2); Prothrombin Time 12.9 sec (9.0-12.0)
[2020-12-30] MEDS ORDERED: SODIUM CHLORIDE 0.9% 1,000 ML IV SCH (13:15)
[2020-12-30 18:42] VITALS: BP 102/64; PULSE 99; RESP 16
== END 2020-12-30 18:43 | disposition home or self-care (01) ==
LOC: EC 08:51
DX: K86.9 Disease of pancreas, unspecified (principal); I95.9 Hypotension, unspecified; C80.1 Malignant (primary) neoplasm, unspecified; E11.65 Type 2 diabetes mellitus with hyperglycemia; I10 Essential (primary) hypertension; E78.5 Hyperlipidemia, unspecified; M19.90 Unspecified osteoarthritis, unspecified site; K21.9 Gastro-esophageal reflux disease without esophagitis; E07.9 Disorder of thyroid, unspecified; Z91.013 Allergy to seafood; Z88.0 Allergy status to penicillin; Z88.8 Allergy status to other drugs, medicaments and biological substances; Z79.899 Other long term (current) drug therapy; Z79.82 Long term (current) use of aspirin; Z79.4 Long term (current) use of insulin; Z79.890 Hormone replacement therapy
CPT/HCPCS: 36415; 71045; 80053; 82248; 83605; 83690; 83735; 84484; 85025; 85610; 85730; 93005; 96360; 96361; 99285